=== PATIENT | male | born 1960 | race Caucasian/White ===

== ENCOUNTER 2017-04-06 19:30 | Inpatient (IN) | payer OTHER ==
[2017-04-06] MEDS ORDERED: VANCOMYCIN PHARMACY TO DOSE MISC ONE (20:21)
[2017-04-06] MEDS ORDERED: LR 1,000 ML IV SCH (20:30)
[2017-04-06] MEDS ORDERED: ONDANSETRON 4 MG/2 ML VIAL IVP PRN (20:56)
[2017-04-06] MEDS ORDERED: ONDANSETRON DISINTEGRATING 4 MG TAB PO PRN (20:56)
[2017-04-06] MEDS ORDERED: ACETAMINOPHEN 325 MG TAB PO PRN (20:56)
[2017-04-06] MEDS ORDERED: HYDROmorphONE/DILAUDID 1 MG/ML SYR IVP PRN (20:56)
[2017-04-06] MEDS ORDERED: HYDROmorphONE/DILAUDID 2 MG TAB PO PRN (20:56)
[2017-04-06] MEDS ORDERED: IBUPROFEN 200 MG TAB PO PRN (20:56)
[2017-04-06] MEDS ORDERED: MAGNESIUM HYDROXIDE 30 ML UDCUP PO PRN (20:59)
[2017-04-06] MEDS ORDERED: BISACODYL 10 MG SUPP PR PRN (20:59)
[2017-04-06] MEDS ORDERED: POLYETHYLENE GLYCOL 3350 17 GM PKT PO PRN (20:59)
[2017-04-06] MEDS ORDERED: LACTULOSE 20 GM/30 ML UDCUP PO PRN (20:59)
--- NOTE | 2017-04-06 21:03 | PDGENHP ---
History and Physical - Chief Complaint Acute elbow pain - History of Present Illness primary care provider: Dr. Cloud primary ID: Dr. Cristhian Bermudez HPI: 56-year-old male presenting with acute pain located in his right elbow with onset of symptoms 1.5 days ago and duration persistent worsening thereafter. He reports that the pain is exacerbated by extending and flexing his right upper extremity and is associated with paresthesias along the affected dorsal surface. The pain was somewhat alleviated by to Advil on the morning of presentation. He does note that approximately 10 days ago his right shoulder was somewhat painful with exertion at a softball game and he has also been experiencing some increased sinus congestion as well as experiencing some chills last night. He has otherwise been taking all of his home medications. Last bowel movement was the morning of presentation. was completely unable to utilize his right upper extremity and buccal his seatbelt, leading him to [facility]. The patient was seen by Dr. Hill and the decision was made for washout for possible septic joint. The patient reports that prior to his onset of symptoms, his right elbow had otherwise been functioning well and he has not had any recent abrasions to the area. History Information - Allergies/Home Medication List Allergies/Adverse Reactions: ciprofloxacin [From Cipro] Allergy (Verified 09/13/15 08:17) ciprofloxacin HCl [From Cipro] Allergy (Verified 09/13/15 08:17) Home Medications: Ascorbic Acid [Vitamin C 500 mg (*)] 500 mg PO DAILY 10/13/15 [Last Taken ] Magnesium Oxide [Magnesium Oxide 400 mg (*)] 400 mg PO DAILY@199910/13/15 [ Last Taken 02/18/16 20:00] Cholecalciferol (Vitamin D3) [Vitamin D3] 5,000 unit PO DAILY 02/19/16 [Last Taken 02/18/16] I have personally reviewed and updated: family history, medical history, social history, surgical history - Past Medical History atrial fibrillation ( Paroxysmal on Xarelto), diabetes type 2, hypertension Additional medical history: erectile dysfunction. Hypothyroidism. Glaucoma. MRSA osteomyelitis. 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 Review of Systems ROS: 10pt was reviewed & negative except for what was stated in HPI & below Constitutional: Reports: chills Muscolosketal: Reports: joint pain ( riht elbow) Physical Exam Temp Pulse Resp BP Pulse Ox 37.0 C 72 14 143/84 H 92 04/06/17 20:22 04/06/17 20:22 04/06/17 20:22 04/06/17 20:22 04/06/17 20:22 Constitutional: no apparent distress, appears nourished, not in pain Eyes: PERRL, anicteric sclera, EOMI Ears, Nose, Mouth, Throat: moist mucous membranes, hearing normal, ears appear normal, no oral mucosal ulcers, other ( no sinus tenderness) Cardiovascular: regular rate and rhythym, no murmur, rub, or gallop, No edema Respiratory: no respiratory distress, no rales or rhonchi, clear to auscultation Gastrointestinal: normoactive bowel sounds, soft, non-tender abdomen, no palpable masses Skin: other ( elbows immediately wrapped, there is not any streaking erythema creeping out from the edges) Musculoskeletal: other ( pain with extension and flexion of right elbow, full range of motion right wrist without pain, full range of motion in the right shoulder without any pain, tenderness to palpation over the right olecranon bursa) Neurologic: AAOx3, sensation intact bilaterally, No weakness ( motor strength 5/ 5 bilateral hands) Psychiatric: interacting appropriately, not anxious, not encephalopathic, thought process linear Assessment & Plan Assessment: 56-year-old male presenting with acute suspected septic arthritis Plan: 1. Suspected septic arthritis. Acute, new problem this provider, further workup indicated. Unclear precipitant, affected area has been worsening over the past 36 hours, and the patient has been evaluated at the [facility]. - bailey risk patient given his previous MRSA - discussed with Cassidy Fletcher, orthopedics, she and Dr. Hill noted crystals on aspirate but gram-stain is pending, so plan is to monitor Cx/gram-stain, treat possible gout w/ colchicine and NSAIDs, and possible surgical wash-out tomorrow if situation requires - get blood cultures, CBC preoperatively - get wound cultures perioperatively - RCRI score of 0, conferring 0.5% perioperative cardiovascular morbidity and mortality rate, recommend proceeding given patient's low cardiovascular risk for low risk surgery - would recommend indwelling washout drain if Orthopedics agrees, given the patient's bleed risk - then administer IV vancomycin, continue Q 12 (will hold tonight, to get cx data from wash-out, if appropriate) - get Infectious Disease consultation - anticipate narrowing antibiotic coverage and making decisions regarding duration of therapy based on culture data 2. Paroxysmal atrial fibrillation. Patient is taking his diltiazem today, monitor rate on telemetry to ensure no rapid ventricular response - last dosage of Xarelto was 24 hours ago and we will hold this evening's dose 3. Diabetes mellitus type 2. Continue home medications 4. Left BKA. Reviewed outside records including [facility] by Dr. Dasha Sweet from 04/16/2016, reporting patient's previous osteomyelitis in the left foot, status post surgical removal, healing well. Diet. Diabetic, NPO in a.m. Prophylaxis. SCDs Code. Full Disposition. Anticipated discharge uncertain this time, anticipated length stay is greater than 48 hours warranting inpatient admission stay for suspected septic arthritis, ruling out gout, requiring Infectious Disease consultation and possible orthopedic surgical washout.
[2017-04-06 21:08] LABS: % IMMATURE GRANULYOCYTES 0.5 % (0.0-1.1); ABSOLUTE IMMATURE GRANULOCYTES 0.06 10^3/uL (0.00-0.10); ADD DIFF? NO; ADD MORPH? NO; ADD SCAN? NO; ATYPICAL LYMPHOCYTE FLAG 10 (0-99); FRAGMENT RBC FLAG 0 (0-99); HEMATOCRIT 42.2 % (40.0-51.0); HEMOGLOBIN 14.3 g/dL (13.7-17.5); LEFT SHIFT FLG 0 (0-99); LIPEMIA HEMOLYSIS FLAG 90 (0-99); MEAN CELL HEMOGLOBIN CONCENTR. 33.9 g/dL (32.4-36.7); MEAN CELL VOLUME 85.6 fL (81.5-99.8); MEAN PLATELET VOLUME 10.9 fL (8.7-11.7); PLATELET CLUMPS FLAG 0 (0-99); PLATELET COUNT 267 10^3/uL (150-400); RED BLOOD CELL COUNT 4.93 10^6/uL (4.40-6.38); RED CELL DISTRIBUTION WIDTH 13.1 % (11.5-15.2)
[2017-04-06] MEDS ORDERED: IBUPROFEN 800 MG TAB PO PRN (21:17)
[2017-04-06 21:21] LABS: APTT 36.3 SEC (23.0-38.0); INR 1.47 (0.83-1.16); PROTIME(PATIENT) 17.8 SEC (12.0-15.0)
[2017-04-06 21:26] LABS: ALANINE AMINOTRANSFERASE 34 IU/L (21-72); ALBUMIN 4.1 g/dL (3.5-5.0); ALKALINE PHOSPHATASE 77 IU/L (38-126); ANION GAP 13 mEq/L (8-16); ASPARTATE AMINOTRANSFERASE 19 IU/L (17-59); BILIRUBIN,TOTAL 0.9 mg/dL (0.1-1.4); CALCIUM 9.6 mg/dL (8.5-10.4); CARBON DIOXIDE 24 mEq/l (22-31); CHLORIDE 101 mEq/L (97-110); CREATININE 1.2 mg/dL (0.7-1.3); GLOMERULAR FILTRATION RATE > 60; GLUCOSE 111 mg/dL (70-100); POTASSIUM 4.4 mEq/L (3.5-5.2); SODIUM 138 mEq/L (134-144); TOTAL PROTEIN 7.4 g/dL (6.3-8.2)
[2017-04-06] MEDS ORDERED: LATANOPROST 0.005% 2.5 ML OPHT DROPS EACHEYE SCH (22:18)
[2017-04-06] MEDS ORDERED: INSULIN LISPRO 100 UNIT/ML SC PRN (22:18)
[2017-04-06] MEDS ORDERED: INSULIN GLARGINE 100 UNITS/ML SYRINGE SC SCH (22:18)
[2017-04-06] MEDS: KETOROLAC 15 MG/1 ML SDV IVP PRN (23:03)
[2017-04-06] MEDS: NS 1,000 ML IV SCH (23:04)
[2017-04-06] MEDS: SENNOSIDES/DOCUSATE SODIUM TAB PO SCH (23:05)
[2017-04-06] MEDS: COLCHICINE 0.6 MG CAP/TAB PO SCH (23:05)
[2017-04-07 05:05] LABS: % IMMATURE GRANULYOCYTES 0.5 % (0.0-1.1); ABSOLUTE IMMATURE GRANULOCYTES 0.06 10^3/uL (0.00-0.10); ADD DIFF? NO; ADD MORPH? NO; ADD SCAN? NO; ATYPICAL LYMPHOCYTE FLAG 0 (0-99); FRAGMENT RBC FLAG 0 (0-99); HEMATOCRIT 39.1 % (40.0-51.0); HEMOGLOBIN 12.9 g/dL (13.7-17.5); LEFT SHIFT FLG 0 (0-99); LIPEMIA HEMOLYSIS FLAG 80 (0-99); MEAN CELL HEMOGLOBIN 28.5 pg (27.9-34.1); MEAN CELL VOLUME 86.5 fL (81.5-99.8); MEAN PLATELET VOLUME 11.5 fL (8.7-11.7); PLATELET CLUMPS FLAG 10 (0-99); PLATELET COUNT 242 10^3/uL (150-400); RED BLOOD CELL COUNT 4.52 10^6/uL (4.40-6.38); RED CELL DISTRIBUTION WIDTH 13.1 % (11.5-15.2)
[2017-04-07 05:21] LABS: ANION GAP 12 mEq/L (8-16); CALCIUM 8.7 mg/dL (8.5-10.4); CARBON DIOXIDE 21 mEq/l (22-31); CHLORIDE 104 mEq/L (97-110); CREATININE 1.2 mg/dL (0.7-1.3); GLOMERULAR FILTRATION RATE > 60; GLUCOSE 261 mg/dL (70-100); MAGNESIUM 1.7 mg/dL (1.6-2.3); POTASSIUM 4.3 mEq/L (3.5-5.2); SODIUM 137 mEq/L (134-144); URIC ACID 8.5 mg/dL (3.5-8.5)
[2017-04-07] MEDS: NS 1,000 ML IV SCH (06:31)
[2017-04-07] MEDS: KETOROLAC 15 MG/1 ML SDV IVP PRN ×2 (07:28→13:56)
[2017-04-07] MEDS: SENNOSIDES/DOCUSATE SODIUM TAB PO SCH (07:29)
[2017-04-07] MEDS: COLCHICINE 0.6 MG CAP/TAB PO SCH (07:29)
[2017-04-07] MEDS ORDERED: DILTIAZEM CD 120 MG CAP PO SCH (09:00)
[2017-04-07] MEDS ORDERED: CHOLECALCIFEROL VIT D3 2,000 UNITS TAB/CAP PO SCH (09:00)
[2017-04-07] MEDS ORDERED: FLUTICASONE NASAL 120 SPRAYS/16 GM MDI EACHNARE SCH (09:00)
--- NOTE | 2017-04-07 09:51 | SOAPPROG ---
SOAP Progress Note Assessment/Plan: Assessment: Elbow arthropathy likely secondary to gout. Plan: Check uric acid No arthrotomy, I and D. Continue colchicine and discharge for follow up to primary care. 04/07/17 09:49 Subjective: Slightly better after 2 doses of colchicine Objective: Vital Signs Temp Pulse Resp BP Pulse Ox 36.8 C 65 16 139/76 H 96 04/07/17 07:25 04/07/17 07:29 04/07/17 07:25 04/07/17 07:29 04/07/17 07:25 Laboratory Results 04/07/17 04:22 04/07/17 04:22 04/06/17 04/07/17 04/08/17 05:59 05:59 05:59 Intake Total 1300 Output Total 300 Balance 1000 PT 17.8 SEC (12.0-15.0) H 04/06/17 20:56 INR 1.47 (0.83-1.16) H 04/06/17 20:56 Swelling mildly better Still warm elbow. ICD10 Worksheet Patient Problems: Problems Problem Status Onset Diabetes type 2, uncontrolled Acute MRSA (methicillin resistant Staphylococcus aureus) Acute 02/19/16 Osteomyelitis of toe of left foot Acute
[2017-04-07 11:41] VITALS: BP 126/66; PULSE 63; RESP 18; TEMP 98.1; O2SAT 95
--- NOTE | 2017-04-07 11:42 | HOSPPROG ---
Hospitalist Progress Note Assessment/Plan: patient is a 56-year-old male who presented with pain in his right elbow area. It is exacerbated by extending and flexing his elbow. He took Advil with some relief. I reviewed his care with Dr. Hill. He believes this is a gout flare with elevated uric acid levels he has recommended colchicine and then daily allopurinol. *elbow arthropathy most likely r/t gout no I & D needed per orthor on colchicine will need kidney function monitored closely hx of MRSA infection to his leg spoke with Dr Sorto with ID and she will or one of her colleagues f/u with wound and blood cx *Leukocytosis f/u with PCP *PAF Diltiazem + Xarelto *DM2 *Left BKA *Plan: dc home with close f/u with his PCP, ID, and Dr Hill Subjective: Jerrell said his elbow is feeling much better today. Objective: Vital Signs Temp Pulse Resp BP Pulse Ox 36.7 C 63 18 126/66 H 95 04/07/17 11:40 04/07/17 11:40 04/07/17 11:40 04/07/17 11:40 04/07/17 11:40 Laboratory Results 04/07/17 04:22 04/07/17 04:22 04/06/17 04/07/17 04/08/17 05:59 05:59 05:59 Intake Total 1300 Output Total 300 Balance 1000 PT 17.8 SEC (12.0-15.0) H 04/06/17 20:56 INR 1.47 (0.83-1.16) H 04/06/17 20:56 - Physical Exam Constitutional: no apparent distress, appears nourished, not in pain Eyes: PERRL Ears, Nose, Mouth, Throat: hearing normal Skin: warm, normal color Musculoskeletal: other (right elbow in maryanne wrap, less tender, able to bend and extend) Neurologic: AAOx3 Psychiatric: interacting appropriately, not anxious ICD10 Worksheet Patient Problems: Problems Problem Status Onset Diabetes type 2, uncontrolled Acute MRSA (methicillin resistant Staphylococcus aureus) Acute 02/19/16 Osteomyelitis of toe of left foot Acute
--- NOTE | 2017-04-07 12:42 | GDS ---
[f rep st] DISCHARGE SUMMARY DISCHARGE DIAGNOSES: 1. Elbow arthropathy. 2. Leukocytosis. 3. Paroxysmal atrial fibrillation. 4. Diabetes type 2. 5. Left below-knee amputation. CONSULTATIONS: Dr. Van Hill. HISTORY: Briefly, Mr. Hughes is a 56-year-old male, who presented to the emergency room with pain in his right elbow area. He could not extend and flex his elbow. He took Advil with some relief, but it continued. He was seen this morning by Dr. Hill, who believes that this is most likely a gout flare with elevated uric acid. He has recommended colchicine for a few days. He aspirated the elbow. The patient will get further followup with the Infectious Disease team and his PCP. HOSPITAL COURSE: 1. Elbow arthropathy. This is most likely related to gout. No incision and drainage was needed, per Orthopedics. Because he has a history of methicillin- resistant Staphylococcus aureus infection in his leg, I have asked Infectious Disease to please follow up with the aspirate from the elbow and also with blood cultures. He has gotten good relief with Colchicine. He will be on this for two more days. Then on Allopurinol. 2. Leukocytosis. Will get repeat labs on Sunday. 3. Paroxysmal atrial fibrillation. Stable. 4. Diabetes type 2. Glucoses are elevated this afternoon. 5. Left below-knee amputation. This occurred in the setting secondary to methicillin-resistant Staphylococcus aureus infection. CONDITION AT DISCHARGE: Stable. Blood pressure is 126/66, respiratory rate is 18, pulse is 63, temperature 36.7 Celsius, O2 saturation on room air 95%. MEDICATIONS AT DISCHARGE: Please see the EMR. New medication includes colchicine for 2-1/2 more days and then allopurinol. DISCHARGE INSTRUCTIONS: 1. To get labs checked early next week. 2. Further follow up with his primary care provider. 3. Further follow up with the Infectious Disease team. /[id number]/MODL MTDD
[2017-04-07] MEDS ORDERED: RIVAROXABAN 20 MG TAB PO SCH (18:00)
[2017-04-07] MEDS ORDERED: THYROID 60 MG TAB PO SCH (21:00)
== END 2017-04-07 14:11 | disposition home or self-care (01) | DRG 554 ==
LOC: F3N 20:10 → OBSVTOIN 20:56
PROVIDERS: ADMIT Internal Medicine; ATTEND Internal Medicine
DX: M10.021 Idiopathic gout, right elbow (principal); I48.0 Paroxysmal atrial fibrillation; E11.9 Type 2 diabetes mellitus without complications; E03.9 Hypothyroidism, unspecified; Z89.512 Acquired absence of left leg below knee; Z86.14 Personal history of Methicillin resistant Staphylococcus aureus infection
CPT/HCPCS: J1815; J1885

== ENCOUNTER 2017-09-26 10:17 | Inpatient (IN) | payer OTHER ==
[2017-09-26] MEDS ORDERED: ACETAMINOPHEN 325 MG TAB PO PRN (15:16)
[2017-09-26] MEDS ORDERED: ONDANSETRON 4 MG/2 ML VIAL IVP PRN (15:16)
[2017-09-26] MEDS ORDERED: ONDANSETRON DISINTEGRATING 4 MG TAB PO PRN (15:16)
[2017-09-26] MEDS ORDERED: D50W 25 GM/50 ML SYR IVP PRN (15:19)
--- NOTE | 2017-09-26 15:25 | PDGENHP ---
History and Physical - Chief Complaint right fifth toe infection - History of Present Illness 57 yo male with hx of Afib, DM, PVD, s/p Left BKA, chronic right foot wound p/w right fifth toe infection. He was seen at wound clinic a few days ago and Bactrim was started. He had progression of his infection despite antibiotics and there was concern for 4th toe involement. Therefore a decision for direct admission was made. Dr. Anton has asked us to admit as the patient has significant chronic medical problems. He has a hx of pAfib, but typically is not in afib. He is on Xarelto for Afib. He has a hx of IDDM and is on several agents He has been afebrile. No CP or SOB. He feels overall well. No palpitations. He does have right lower extremity edema which is mild and chronic. He denies use of diuretics. He denies generalized weakness. He has some bruising on his right lower extremity which he reports is due to Softballs hitting him while playing catch with his 11 year old. - Past Medical History atrial fibrillation ( Paroxysmal on Xarelto), diabetes type 2, hypertension Additional medical history: erectile dysfunction. Hypothyroidism. Glaucoma. MRSA osteomyelitis. 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 History Information - Allergies/Home Medication List Allergies/Adverse Reactions: ciprofloxacin [From Cipro] Allergy (Verified 09/13/15 08:17) ciprofloxacin HCl [From Cipro] Allergy (Verified 09/13/15 08:17) Home Medications: Cholecalciferol (Vitamin D3) [Vitamin D3] 5,000 unit PO DAILY 02/19/16 [Last Taken 04/06/17] Insulin Detemir [Levemir] 20 unit SQ HS 04/06/17 [Last Taken 04/05/17] Insulin Lispro [humALOG LISPRO 100 units/ml (*)] 14 unit SC TIDMEAL PRN [Last Taken 04/06/17] Thyroid,Pork [ARMOUR THYROID] 15 mg PO HS 04/06/17 [Last Taken 04/05/17] Anastrozole [Arimidex 1 mg (*)] 1 mg PO Q7D 09/26/17 [Last Taken Unknown] Insulin Detemir [Levemir] 40 unit SQ DAILY 09/26/17 [Last Taken Unknown] Insulin Glargine/Lixisenatide [Soliqua 100 Unit-33 Mcg/ml Pen] 3 ml SQ 09/26/17 [Last Taken Unknown] Insulin Lispro [Humalog] 20 unit SQ TID 09/26/17 [Last Taken Unknown] celeCOXIB [Celebrex (*)] 200 mg PO BID 09/26/17 [Last Taken Unknown] I have personally reviewed and updated: medical history, social history - Past Medical History atrial fibrillation ( Paroxysmal on Xarelto), diabetes type 2, hypertension Additional medical history: erectile dysfunction. Hypothyroidism. Glaucoma. MRSA osteomyelitis. Clubfoot - Surgical History Additional surgical history: October 2014 5th metatarsal left foot amputation - Family History Additional family history: father with diabetes and coronary artery disease in his 70s, mother with COPD in her 70s - Social History Smoking Status: Never smoked Additional social history: normally independent in his ADLs, he is an avid softball enthusiast Review of Systems Review of Systems: ROS: 10pt was reviewed & negative except for what was stated in HPI & below Physical Exam Physical Exam: Temp Pulse Resp BP Pulse Ox 36.9 C 77 16 123/74 H 90 L 09/26/17 15:01 09/26/17 15:01 09/26/17 15:01 09/26/17 15:01 09/26/17 15:01 Constitutional: no apparent distress Eyes: PERRL Ears, Nose, Mouth, Throat: moist mucous membranes, hearing normal Cardiovascular: regular rate and rhythym, edema (trace R LE) Respiratory: no respiratory distress Gastrointestinal: normoactive bowel sounds Genitourinary: no bladder fullness Skin: warm Musculoskeletal: full muscle strength, other (chronic Left BKA) Neurologic: AAOx3 Psychiatric: interacting appropriately, not anxious, not encephalopathic Lymph, Heme, Immunologic: No petechiae Assessment & Plan Assessment: #Right foot 4th and 5th toe infection with hx of MRSA OM -will start Vancomycin pending labs which have been ordered -CTA with runoff pending labs #pAfib: cont home meds #Chronic AC: hold AC #DMII -appropriate home meds -ISS -check A1c #HTN: home meds #PVD Plan: per above check labs now check EKG telemetry surgical mgmt per Surgery Start Vancomycin per above pending labs Full code
[2017-09-26 16:24] LABS: PLATELET COUNT 318 10^3/uL (150-400)
[2017-09-26] MEDS ORDERED: INSULIN LISPRO 100 UNIT/ML SC PRN (16:34)
--- NOTE | 2017-09-26 16:54 | CPEKG ---
Heart Rate: 74 RR Interval: 811 P-R Interval: 180 QRSD Interval: 82 QT Interval: 372 QTC Interval: 413 P [place]: -10 QRS [place]: 77 T Wave [place]: 42 EKG Severity - NORMAL ECG - EKG Impression: SINUS RHYTHM EKG Impression: COMPARED WITH 03/07/2016, SINUS RHYTHM NOW PRESENT. Electronically Signed By: Bonnie Salcido 27-Sep-2017 13:39:33
[2017-09-26 17:05] LABS: INR 1.6 (0.83-1.16); PROTIME(PATIENT) 19.2 SEC (12.0-15.0)
[2017-09-26] MEDS ORDERED: NS 1,000 ML IV SCH (17:30)
[2017-09-26] MEDS: VANCOMYCIN HCL/NORMAL SALINE 250 ML IV SCH (18:00)
[2017-09-26] MEDS: INSULIN LISPRO 100 UNIT/ML SC SCH (18:03)
--- NOTE | 2017-09-26 19:00 | SOAPPROG ---
SOAP Progress Note Assessment/Plan: Assessment: 57-YEAR-OLD DIABETIC WITH NEUROPATHY AND 5TH TOE INFECTION AND POSSIBLE 4TH TOE INFECTION CT OF HIS EXTREMITIES PENDING. HE ALSO HAS A PROBABLE HEMATOMA IN HIS MID MAR[place] WHICH MAY ALSO BE INFECTED PRESENTLY AFEBRILE Plan: WILL LIKELY NEED RIGHT 4TH AND 5TH TOE RAY AMPUTATIONS AND POSSIBLE DRAINAGE OF HIS PRETIBIAL HEMATOMA IF INFECTED 09/26/17 18:59 Objective: Vital Signs Temp Pulse Resp BP Pulse Ox 36.9 C 77 16 123/74 H 90 L 09/26/17 15:01 09/26/17 15:01 09/26/17 15:01 09/26/17 15:01 09/26/17 15:01 Laboratory Results 09/26/17 16:15 09/26/17 16:15 09/25/17 09/26/17 09/27/17 05:59 05:59 05:59 Intake Total 250 Output Total 250 Balance 0 PT 19.2 SEC (12.0-15.0) H 09/26/17 16:15 INR 1.60 (0.83-1.16) H 09/26/17 16:15 ICD10 Worksheet Patient Problems: Problems Problem Status Onset Diabetes type 2, uncontrolled Acute MRSA (methicillin resistant Staphylococcus aureus) Acute 02/19/16 Osteomyelitis of toe of left foot Acute
[2017-09-26] MEDS: LOSARTAN POTASSIUM 25 MG TAB PO SCH (19:44)
[2017-09-26] MEDS: LATANOPROST 0.005% 2.5 ML OPHT DROPS EACHEYE SCH (19:45)
[2017-09-26] MEDS ORDERED: NON-FORMULARY NEW DRUG (Thyroid,Pork [Armour Thyroid] 15 MG) PO SCH (21:00)
[2017-09-27 04:41] LABS: PLATELET COUNT 336 10^3/uL (150-400)
[2017-09-27] MEDS: VANCOMYCIN HCL/NORMAL SALINE 250 ML IV SCH ×2 (06:47→17:09)
--- NOTE | 2017-09-27 08:47 | PDMN ---
Medical Necessity Medical necessity: M70 cellulitis- failure of outpt tx with progression of infection. in pt with hx of DM, afib, hx of MRSA, sgy consult pending
[2017-09-27] MEDS ORDERED: Herbals/Supplements -Info Only PO SCH (09:00)
[2017-09-27] MEDS ORDERED: NON-FORMULARY NEW DRUG (Cholecalciferol (Vitamin D3) [Vitamin D3] 5,000 UNIT) PO SCH (09:00)
--- NOTE | 2017-09-27 09:11 | SOAPPROG ---
SOAP Progress Note Assessment/Plan: Assessment: 57 yo well known to me. Have been following for ulcer on r 5th toe - worsening. Now 4th toe with some necrotic tissue hematoma on r anterior leg Will go to OR to amputate 4th/5th toe and met head and I&D hematoma x ray to rule out fracture and osteo will hold on MRI and CTA due to Cr of 1.4 good palpable pulses Plan: 09/27/17 09:09 Objective: Vital Signs Temp Pulse Resp BP Pulse Ox 37.0 C 64 14 140/75 H 96 09/27/17 07:09 09/27/17 07:09 09/27/17 07:09 09/27/17 07:09 09/27/17 07:09 Laboratory Results 09/27/17 03:23 09/27/17 03:23 09/26/17 09/27/17 09/28/17 05:59 05:59 05:59 Intake Total 250 Output Total 1550 Balance -1300 PT 19.2 SEC (12.0-15.0) H 09/26/17 16:15 INR 1.60 (0.83-1.16) H 09/26/17 16:15 ICD10 Worksheet Patient Problems: Problems Problem Status Onset Diabetes type 2, uncontrolled Acute MRSA (methicillin resistant Staphylococcus aureus) Acute 02/19/16 Osteomyelitis of toe of left foot Acute
--- NOTE | 2017-09-27 10:26 | ASMTCASEMG ---
Living Arrangements What is your living Answers: With Spouse arrangement? Who do you live with? Type Of Residence What kind of residence do Answers: House you live in? Discharge Plan Comments Coordination Status Comments Notes: Pt is a 57 y/o man admitted for a right fifth toe infection. PT has been ordered and awaiting recommendations. Pt will most likely d/c independent when medically stable. CM available for d/c needs. Plan: Independent Date Signed: 09/27/2017 10:26 AM Electronically Signed By:POOJA Sevilla
[2017-09-27] MEDS: DILTIAZEM CD 120 MG CAP PO SCH (10:36)
[2017-09-27] MEDS: INSULIN LISPRO 100 UNIT/ML SC SCH ×3 (11:04→18:41)
[2017-09-27] MEDS ORDERED: BUPIVACAINE 0.5% 30 ML SDV ONE (12:04)
[2017-09-27] MEDS ORDERED: LR 1,000 ML IV ONE (12:15)
[2017-09-27] MEDS ORDERED: fentaNYL 100 MCG/2 ML INJ ONE (12:26)
[2017-09-27] MEDS ORDERED: MIDAZOLAM 2 MG/2 ML VIAL ONE (12:29)
[2017-09-27] MEDS ORDERED: LIDOCAINE 2% 5 ML SDV ONE (12:43)
[2017-09-27] MEDS ORDERED: PROPOFOL 200 MG/20 ML VIAL ONE (12:50)
[2017-09-27] MEDS ORDERED: LR 500 ML IV PRN (13:13)
[2017-09-27] MEDS ORDERED: ALBUTEROL 3 ML DEYVIAL IH PRN (13:13)
[2017-09-27] MEDS ORDERED: NALOXONE HCL 0.4 MG/ML INJ IVP PRN (13:13)
[2017-09-27] MEDS ORDERED: fentaNYL 100 MCG/2 ML INJ IVP PRN (13:13)
[2017-09-27] MEDS ORDERED: ONDANSETRON 4 MG/2 ML VIAL IVP PRN (13:13)
[2017-09-27] MEDS ORDERED: DEXAMETHASONE 4 MG/ML VIAL IVP PRN (13:13)
--- NOTE | 2017-09-27 13:14 | PDANEPAE ---
ANE Past Medical History - Cardiovascular History Hx Hypertension: No Hx Arrhythmias: No Hx Chest Pain: No Hx Coronary Artery / Peripheral Vascular Disease: No Hx CHF / Valvular Disease: No Hx Palpitations: No - Pulmonary History Hx COPD: No Hx Asthma/Reactive Airway Disease: No Hx Recent Upper Respiratory Infection: No Hx Oxygen in Use at Home: No Hx Sleep Apnea: Yes Sleep Apnea Screening Result - Last Documented: Positive - Neurologic History Hx Cerebrovascular Accident: No Hx Seizures: No Hx Dementia: No Neurologic History Comment: Neuropathy all 4 extremities. - Endocrine History Hx Diabetes: Yes Endocrine History Comment: TYpppppe 2 diabetes-insulin and oral meds. - Renal History Hx Renal Disorders: Yes Renal History Comment: HX stones distant past. - Liver History Hx Hepatic Disorders: No - Neurological & Psychiatric Hx Hx Neurological and Psychiatric Disorders: No - Cancer History Hx Cancer: No - GI History Hx Gastrointestinal Disorders: No - Other Health History Other Health History: Bilateral glaucoma. Diabetic neuropathy with 2 toe amputations. - Chronic Pain History Chronic Pain: No - Surgical History Prior Surgeries: L toe amputation 2014. Arthroscope repair both ankles 2001. ANE Review of Systems Review of Systems: ANE Patient History - Allergies Allergies/Adverse Reactions: ciprofloxacin [From Cipro] Allergy (Verified 09/13/15 08:17) ciprofloxacin HCl [From Cipro] Allergy (Verified 09/13/15 08:17) - Home Medications Home Medications: Cholecalciferol (Vitamin D3) [Vitamin D3] 5,000 unit PO DAILY 02/19/16 [Last Taken 09/25/17] Insulin Lispro [humALOG LISPRO 100 units/ml (*)] 14 unit SC TIDMEAL PRN [Last Taken 09/25/17 21:00] Thyroid,Pork [ARMOUR THYROID] 15 mg PO HS 04/06/17 [Last Taken 09/25/17] Anastrozole [Arimidex 1 mg (*)] 1 mg PO BOOKER 09/26/17 [Last Taken 09/23/17] Ferrous Sulfate [Ferrous Sulf 325 MG (*)] 325 mg PO DAILY 09/26/17 [Last Taken 09/21/17] Herbals/Supplements -Info Only 1 ea PO DAILY 09/26/17 [Last Taken 3 Days Ago ~] Losartan Potassium [Cozaar 25 mg (*)] 25 mg PO HS 09/26/17 [Last Taken 09/25/17] - NPO status NPO Since - Liquids (Date): 09/27/17 NPO Since - Liquids (Time): 00:00 NPO Since - Solids (Date): 09/27/17 NPO Since - Solids (Time): 00:00 - Smoking Hx Smoking Status: Never smoked - Family Anes Hx Family Hx Anesthesia Complications: none ANE Labs/Vital Signs - Labs Result Diagrams: 09/27/17 03:23 09/27/17 03:23 - Vital Signs Blood Pressure: 140/75 Heart Rate: 64 Respiratory Rate: 14 O2 Sat (%): 96 Height: 162.56 cm Weight: 98.6 kg ANE Physical Exam - Airway Neck exam: FROM, increased neck circumference, short neck Mallampati Score: Class 2 Mouth exam: normal dental/mouth exam - Pulmonary Pulmonary: no respiratory distress, no rales or rhonchi, reduced air movement - Cardiovascular Cardiovascular: regular rate and rhythym, no murmur, rub, or gallop - ASA Status ASA Status: IV ANE Anesthesia Plan Anesthesia Plan: MAC (modified ankle block as primary anesthesia)
--- NOTE | 2017-09-27 13:36 | POSTOPPROG ---
Post Op Note Date of Operation: 09/27/17 Surgeon: Dasha Sweet Anesthesiologist: fermin Anesthesia: IV Sedation Pre-op Diagnosis: infected toes and hematoma Post-op Diagnosis: same Indication: 57 yo dm worsening infection r 4th 5th toe and hematoma on leg Procedure: excisional debride leg 5x2.5x1 and amputate 4th 5th toe and met head Findings: large hematoma Inf/Abcess present in the surg proc area at time of surgery?: Yes Depth: Deep Incisional (Fascial) EBL: Minimal Specimen(s): micro and path
--- NOTE | 2017-09-27 13:48 | POSTANESTH ---
Post Anesthetic Evaluation Cardiovascular Status: Normal, Stable Respiratory Status: Normal, Stable Level of Consciousness/Mental Status: Can Participate in Eval Pain Control: Adequate, Prn Tx Ordered Nausea/Vomiting Control: Adequate, Prn Tx Ordered Complications Possibly Related to Anesthesia: None Noted
[2017-09-27] MEDS ORDERED: D50W 25 GM/50 ML SYR IVP PRN (15:48)
--- NOTE | 2017-09-27 15:54 | HOSPPROG ---
Hospitalist Progress Note Assessment/Plan: Assessment: #Right foot 4th and 5th toe infection with hx of MRSA OM status post 4th and 5th digit amputation done 09/27/[address] Sweet -continue Vancomycin #pAfib: cont home meds -resume Xarelto once okay with surgery #Chronic AC: hold AC #DMII (uncontrolled) -start glargine 20 U daily and continue correctional insulin as needed per protocol #HTN: home meds #PVD Full code Subjective: Pain control. Denies any fevers or chills. Patient seen prior to going to the operating room Objective: Vital Signs Temp Pulse Resp BP Pulse Ox 36.4 C 52 L 12 101/62 95 09/27/17 14:50 09/27/17 14:50 09/27/17 14:50 09/27/17 14:50 09/27/17 14:50 Laboratory Results 09/27/17 03:23 09/27/17 03:23 09/26/17 09/27/17 09/28/17 05:59 05:59 05:59 Intake Total 250 300 Output Total 1550 11 Balance -1300 289 PT 19.2 SEC (12.0-15.0) H 09/26/17 16:15 INR 1.60 (0.83-1.16) H 09/26/17 16:15 - Physical Exam Constitutional: no apparent distress, appears nourished, not in pain Cardiovascular: regular rate and rhythym, no murmur, rub, or gallop Respiratory: no respiratory distress, no rales or rhonchi, clear to auscultation Gastrointestinal: normoactive bowel sounds, soft, non-tender abdomen, no palpable masses ICD10 Worksheet Patient Problems: Problems Problem Status Onset Osteomyelitis of toe of left foot Acute Diabetes type 2, uncontrolled Acute MRSA (methicillin resistant Staphylococcus aureus) Acute 02/19/16
[2017-09-27] MEDS: THYROID 60 MG TAB PO SCH (17:09)
[2017-09-27] MEDS: FERROUS SULFATE 325 MG TAB PO SCH (17:10)
[2017-09-27] MEDS: CHOLECALCIFEROL VIT D3 1,000 UNITS TAB PO SCH (17:10)
[2017-09-27] MEDS ORDERED: INSULIN GLARGINE 100 UNITS/ML UNIT SC SCH (21:00)
[2017-09-27] MEDS: LOSARTAN POTASSIUM 25 MG TAB PO SCH (21:02)
[2017-09-27] MEDS: LATANOPROST 0.005% 2.5 ML OPHT DROPS EACHEYE SCH (21:05)
[2017-09-28] MEDS: DILTIAZEM CD 120 MG CAP PO SCH (08:48)
[2017-09-28] MEDS: VANCOMYCIN HCL/NORMAL SALINE 250 ML IV SCH ×2 (08:48→17:57)
[2017-09-28] MEDS: CHOLECALCIFEROL VIT D3 1,000 UNITS TAB PO SCH (08:49)
[2017-09-28] MEDS: FERROUS SULFATE 325 MG TAB PO SCH (08:49)
[2017-09-28] MEDS: INSULIN LISPRO 100 UNIT/ML SC SCH ×3 (08:58→17:56)
[2017-09-28] MEDS: THYROID 60 MG TAB PO SCH (10:20)
[2017-09-28] MEDS ORDERED: ALTEPLASE 2 MG VIAL IVP PRN (11:40)
--- NOTE | 2017-09-28 11:40 | PCMIDPN ---
Assessment/Plan: # OM/gangrene 4th, 5th toe s/p amputation 4th 5th toe and met head and excisional debridement leg 5x2.5x1 for hematoma. Surgical dressings in place today and not removed at time of my exam. --plan DC IV vancomycin for empiric therapy of MRSA, plan initial 2 week course until pathology back. --add on CRP --place PICC line --trough drawn 2 hours late = 10, except accumulation, no dose change today. Recheck Sunday. Recheck vancomycin T before complete interagency but follow up appointment set today --dressing change is Sunday # Past h/o rapidly progressive infections mediated by MRSA leading to L BKA meds vancomycin 1gm IV q12 #2 micro toe tissue : gram stain negative Subjective: 57 yo male with DM and h/o MRSA bacteremia due to L osteomyelitis of foot for which patient underwent left-sided BKA back in 2015. 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 Patient was in his usual state of health until last week when he developed injury right 5th toe and right anterior bean. Ulceration on right 5th toe was progressive and plain film showed subtle distal erosion of the 5th toe. Subsequently patient underwent amputation of the 4th and 5th toe along with metatarsal head on the right 09/27/2017. Id is asked to comment on antibiotic therapy while await pathology. Surgical team reports resection back to healthy- appearing bone. Objective: Vital Signs Temp Pulse Resp BP Pulse Ox 37.0 C 71 18 145/81 H 90 L 09/28/17 08:00 09/28/17 08:00 09/28/17 08:00 09/28/17 08:00 09/28/17 08:10 Microbiology 09/27/17 13:06 Gram Stain - Final Toe - Tissue Laboratory Results 09/27/17 03:23 09/27/17 03:23 09/27/17 09/28/17 09/29/17 05:59 05:59 05:59 Intake Total 250 2200 Output Total 1550 1761 800 Balance -1300 439 -800 - Physical Exam General Appearance: alert, no apparent distress EENT: normal ENT inspection, No thrush Respiratory: lungs clear, No accessory muscle use Neck: supple Cardiac/Chest: regular rate, rhythm Extremities: pedal edema (Right foot), other (Dressing in place from surgery right lateral foot and wound VAC in place anterior bean) Abdomen: non-tender, soft Male Genitalia: No judd Skin: No rash Neuro/Psych: alert, normal mood/affect, oriented x 3 - Time Spent With Patient Time Spent with Patient: greater than 35 minutes (Plan of care discussed with patient and his at bedside) Time Spent with Patient: Greater than 35 minutes spent on this patients care, greater than 50% of time spent counseling, educating, and coordinating care regarding the above mentioned plan. ICD10 Worksheet Patient Problems: Problems Problem Status Onset Diabetes type 2, uncontrolled Acute MRSA (methicillin resistant Staphylococcus aureus) Acute 02/19/16 Osteomyelitis of toe of left foot Acute
--- NOTE | 2017-09-28 14:43 | SOAPPROG ---
SOAP Progress Note Assessment/Plan: Assessment/Plan: POD 1: 57 yo male s/p amputation of right 4th and 5th toe including metatarsal head and incisional debridement of hematoma on right anterior lower leg Consulted ID for abx treatment, bone biopsy results pending Consulted Shaka from [facility] for a shoe/boot, he will see the patient Wound vac - change on Sunday, pre-auth home vac, possible transition to snap vac in a couple of weeks Foot x ray - showed possible osteomyelitis of the 5th, 1st, and 2nd toes, no clinical symptoms. Mild lucency, continue to monitor for now. Will hold on MRI and CTA due to Cr of 1.4 Xarelto - ok to restart this evening Leukocytosis trending down, afebrile OK to shower with R LE covered S: The patient reports feeling fatigued and sore, especially on his anterior leg where the wound vac is. He denies fever, chills, n/v. He is having flatus and BM. He was taken off nasal cannula today and is doing well. He has full ROM in his right knee and is able to ambulate with his cam boot on and his walker. He mentions the cam boot is painful on his anterior leg where the wound vac is. O: General: The patient is laying in bed watching TV. He is pleasant and in no acute distress. Right LE: Wound vac is in place, very little serosanguineous fluid present in the cartridge. Some mild erythema around the wound. Bandage is intact over the right amputation sites and does not need to be changed until Sunday. What is visible is non-erythematous with no signs of infection. Right foot is moderately swollen. Pulses palpable. 09/28/17 15:30 09/29/17 09:50 Objective: Vital Signs Temp Pulse Resp BP Pulse Ox 37.1 C 73 15 144/61 H 90 L 09/28/17 11:54 09/28/17 11:54 09/28/17 11:54 09/28/17 11:54 09/28/17 11:54 Microbiology 09/27/17 13:06 Gram Stain - Final Toe - Tissue Laboratory Results 09/27/17 03:23 09/27/17 03:23 09/27/17 09/28/17 09/29/17 05:59 05:59 05:59 Intake Total 250 2200 Output Total 1550 1761 800 Balance -1300 439 -800 PT 19.2 SEC (12.0-15.0) H 09/26/17 16:15 INR 1.60 (0.83-1.16) H 09/26/17 16:15 ICD10 Worksheet Patient Problems: Problems Problem Status Onset Diabetes type 2, uncontrolled Acute MRSA (methicillin resistant Staphylococcus aureus) Acute 02/19/16 Osteomyelitis of toe of left foot Acute
--- NOTE | 2017-09-28 15:37 | HOSPPROG ---
Hospitalist Progress Note Assessment/Plan: Assessment: #Right foot 4th and 5th toe infection with hx of MRSA OM status post 4th and 5th digit amputation done 09/27/[address] Sweet -continue Vancomycin for now -ID consult ordered #pAfib: cont home meds -resume Xarelto #DMII (uncontrolled) -increase glargine to 30 U daily and continue correctional insulin as needed per protocol #HTN: home meds #PVD Full code dispo dc home with antibiotics and wound vac once arrangements are in place Subjective: pain controlled. no fever or chills. tolerating diet Objective: Vital Signs Temp Pulse Resp BP Pulse Ox 37.1 C 73 15 144/61 H 90 L 09/28/17 11:54 09/28/17 11:54 09/28/17 11:54 09/28/17 11:54 09/28/17 11:54 Microbiology 09/27/17 13:06 Gram Stain - Final Toe - Tissue Laboratory Results 09/27/17 03:23 09/27/17 03:23 09/27/17 09/28/17 09/29/17 05:59 05:59 05:59 Intake Total 250 2200 Output Total 1550 1761 1400 Balance -1300 439 -1400 PT 19.2 SEC (12.0-15.0) H 09/26/17 16:15 INR 1.60 (0.83-1.16) H 09/26/17 16:15 - Physical Exam Constitutional: no apparent distress, appears nourished, not in pain Ears, Nose, Mouth, Throat: moist mucous membranes, hearing normal, ears appear normal, no oral mucosal ulcers Cardiovascular: regular rate and rhythym, no murmur, rub, or gallop Respiratory: no respiratory distress, no rales or rhonchi, clear to auscultation Gastrointestinal: normoactive bowel sounds, soft, non-tender abdomen, no palpable masses ICD10 Worksheet Patient Problems: Problems Problem Status Onset Osteomyelitis of toe of left foot Acute Diabetes type 2, uncontrolled Acute MRSA (methicillin resistant Staphylococcus aureus) Acute 02/19/16
--- NOTE | 2017-09-28 15:55 | ASMTCMCOM ---
CM Note CM Note Notes: 09/28/2017 Case Management Note Completed [employer] wound vac application. Notified Brianne at [facility] [phone] of MD note 09/28 indicating need for snap vac. [facility] rep Ryan will reach out to Dr. Sweet for more information. Per Brianne pts do not leave the hospital with snap Vacs but she was going to confirm with Ryan. Prescription for [employer] wound vac that needs MD signature is on front of chart. Dr. Sweet will need to sign and give to case management. Pt insurance company is requesting addtional info, per Brianne, all other paperwork that is needed has been faxed to Dr. Sweet's office by Ryan her coworker. Case Management will fax signed prescription to [facility] to complete order so vac can be released to pt tomorrow if Ryna is unable to reach Dr. Sweet's office today. RN aware. Case Management SW aware. Per Case Management [facility] is home care agency for RN cares. [facility] fax number . # [phone]. Case Management to complete process tomorrow after prescription is signed. Date Signed: 09/28/2017 03:54 PM Electronically Signed By:Caty Salamanca RN
--- NOTE | 2017-09-28 16:29 | ASMTCMCOM ---
CM Note CM Note Notes: Discussed pts case in morning rounds. Pt will require a snap vac according to surgery. Pt will be on ivabx. CM met w/ pt and family for dispo planning. Pt reported having [facility] and [facility] in the past. would like to do the learning. Referral made to [facility] and [facility]. Both facilities are able to accept. CM notified Shyanne at [facility] that is requesting to learn how to admin meds. Paper work tubed to [place] and she will fill out [facility] paperwork for wound vac. CM will need to fax completed paperwork in chart to [facility]. CM to follow. Plan: GARCIA, RN with [facility] to supply meds and [employer] for wound vac Date Signed: 09/28/2017 04:28 PM Electronically Signed By:POOJA Sevilla
[2017-09-28] MEDS: RIVAROXABAN 20 MG TAB PO SCH (17:57)
[2017-09-28] MEDS: LATANOPROST 0.005% 2.5 ML OPHT DROPS EACHEYE SCH (21:38)
[2017-09-28] MEDS: LOSARTAN POTASSIUM 25 MG TAB PO SCH (21:38)
[2017-09-28] MEDS: INSULIN GLARGINE 100 UNITS/ML UNIT SC SCH (21:38)
[2017-09-29] MEDS: VANCOMYCIN HCL/NORMAL SALINE 250 ML IV SCH ×2 (05:44→17:53)
[2017-09-29] MEDS: INSULIN LISPRO 100 UNIT/ML SC SCH ×3 (07:46→17:52)
[2017-09-29] MEDS: DILTIAZEM CD 120 MG CAP PO SCH (09:49)
[2017-09-29] MEDS: FERROUS SULFATE 325 MG TAB PO SCH (09:49)
[2017-09-29] MEDS: CHOLECALCIFEROL VIT D3 1,000 UNITS TAB PO SCH (09:49)
--- NOTE | 2017-09-29 10:09 | SOAPPROG ---
SOAP Progress Note Assessment/Plan: Assessment/Plan: POD 2: 57 yo male s/p amputation of right 4th and 5th toe including metatarsal head and incisional debridement of hematoma on right anterior lower leg Amputation site is more erythematous and swollen today, took bandage off to look , left open to air, nurse to re-bandage today Microbiology preliminary report shows enterococcus - abx per ID Shaka from [facility] came and modified his boot Wound vac - change on Sunday, pre-auth home vac, possible transition to snap vac in a couple of weeks CTA of abdomen with R leg runoff ordered D/C once home wound vac and home care are approved, no further signs of infection, and if CTA shows no need for intervention S: He is feeling well today. His bean is still quite sore, but less so than yesterday and his amputation site is not painful. He has ecchymosis on his left internal ankle from getting hit with a baseball that is tender today. He noticed increased redness and swelling in his foot. He reports that the modification to his boot has helped significantly. He has not taken any pain medication since right after surgery. No fever, chills. He is otherwise feeling well. O: General: The patient is sitting up in his chair talking on the phone. He is pleasant and in no acute distress. Right LE: Wound vac is in place, little serosanguineous fluid present in the cartridge. Bandage is removed over the right amputation site. Suture line intact , no exudate, some dried blood present. Increased swelling and erythema today proximal to the site on the dorsal aspect of the R foot. Non-blanching erythema about 5x5 cm, not hot to touch. Pulses palpable. Reported tenderness on the right medial ankle where he was hit with a baseball, light ecchymosis present, non-surgical. 09/29/17 10:41 09/29/17 10:50 Objective: Vital Signs Temp Pulse Resp BP Pulse Ox 37.2 C 66 16 135/73 H 92 09/29/17 07:14 09/29/17 07:14 09/29/17 07:14 09/29/17 07:14 09/29/17 07:14 Microbiology 09/27/17 13:06 Gram Stain - Final Toe - Tissue Laboratory Results 09/27/17 03:23 09/27/17 03:23 09/28/17 09/29/17 09/30/17 05:59 05:59 05:59 Intake Total 2200 2775 Output Total 1760 9580 Balance 439 -1025 PT 19.2 SEC (12.0-15.0) H 09/26/17 16:15 INR 1.60 (0.83-1.16) H 09/26/17 16:15 ICD10 Worksheet Patient Problems: Problems Problem Status Onset Diabetes type 2, uncontrolled Acute MRSA (methicillin resistant Staphylococcus aureus) Acute 02/19/16 Osteomyelitis of toe of left foot Acute
[2017-09-29] MEDS ORDERED: IOPAMIDOL (ISOVUE 370) 100 ML BTL IV ONE ×2 (11:02→11:18)
[2017-09-29] MEDS: THYROID 60 MG TAB PO SCH (12:05)
--- NOTE | 2017-09-29 16:06 | HOSPPROG ---
Hospitalist Progress Note Assessment/Plan: 57-year-old male status post amputation of the right foot 4th and 5th toes with a history of MR . Patient currently is postop on 09/27/[address] Hawk and of the amputation. He is on vancomycin. There is a history of proximal atrial fibrillation for which she is on anticoagulant therapy and diabetes mellitus and hypertension along with peripheral vascular disease. Today he had a CT of the abdomen with runoff showing distal atherosclerotic disease and poor visualization of the arteries of the foot. The wound VAC has been approved for his home care. Pain currently in good control. Patient is new to mt to -Right foot 4th and 5th toe infection with hx of MRSA OM status post 4th and 5th digit amputation done 09/27/[address] Sweet -continue Vancomycin for now -ID consult ordered -pAfib: cont home meds -resume Xarelto -DMII (uncontrolled) hemoglobin A1c is 10 indicating poor control. Glucose currently in good control with glargine and SSI. -HTN: home meds -PVD: CT with runoff showing poor visualization of the arteries of the right foot. Full code dispo dc home with antibiotics and wound vac once arrangements are in place Time: 35 min Subjective: Reports his pain is in good control. The only area that hurts is the area on the bean where he was hit by a baseball. Otherwise he is doing well without chest pain or shortness of breath Objective: Vital Signs Temp Pulse Resp BP Pulse Ox 37.2 C 66 16 135/73 H 92 09/29/17 07:14 09/29/17 07:14 09/29/17 07:14 09/29/17 07:14 09/29/17 07:14 Microbiology 09/27/17 13:06 Gram Stain - Final Toe - Tissue Laboratory Results 09/27/17 03:23 09/29/17 10:30 09/28/17 09/29/17 09/30/17 05:59 05:59 05:59 Intake Total 2200 2775 Output Total 1761 3800 500 Balance 439 -1025 -500 PT 19.2 SEC (12.0-15.0) H 09/26/17 16:15 INR 1.60 (0.83-1.16) H 09/26/17 16:15 - Time Spent With Patient Time Spent with Patient: greater than 35 minutes Time Spent with Patient: Greater than 35 minutes spent on this patients care, greater than 50% of time spent counseling, educating, and coordinating care regarding the above mentioned plan. - Pending Discharge Pending Discharge Within 24 Hours: Yes Pending Discharge Date: 09/30/17 Pending Discharge Time: 11:00 - Physical Exam Constitutional: no apparent distress Eyes: PERRL Ears, Nose, Mouth, Throat: moist mucous membranes, hearing normal Cardiovascular: regular rate and rhythym, no murmur, rub, or gallop Respiratory: no respiratory distress, no rales or rhonchi, clear to auscultation Gastrointestinal: normoactive bowel sounds, soft, non-tender abdomen, no palpable masses Genitourinary: no bladder fullness Skin: warm Musculoskeletal: other (Left leg shows an AKA that is healing well. Right foot shows a wound VAC in place on the anterior bean and a surgical bandage in place. The description by Dr. Sweet of the wound is appreciated. Skin is warm and dry with good pulse ) Neurologic: AAOx3 ICD10 Worksheet Patient Problems: Problems Problem Status Onset Diabetes type 2, uncontrolled Acute MRSA (methicillin resistant Staphylococcus aureus) Acute 02/19/16 Osteomyelitis of toe of left foot Acute
[2017-09-29] MEDS: RIVAROXABAN 20 MG TAB PO SCH (17:53)
[2017-09-29] MEDS: LOSARTAN POTASSIUM 25 MG TAB PO SCH (21:48)
[2017-09-29] MEDS: LATANOPROST 0.005% 2.5 ML OPHT DROPS EACHEYE SCH (21:48)
[2017-09-29] MEDS: INSULIN GLARGINE 100 UNITS/ML UNIT SC SCH (21:48)
[2017-09-30 05:36] LABS: PLATELET COUNT 281 10^3/uL (150-400)
[2017-09-30] MEDS: VANCOMYCIN HCL/NORMAL SALINE 250 ML IV SCH ×2 (06:52→18:23)
[2017-09-30] MEDS ORDERED: ANASTROZOLE 1 MG TAB PO SCH (09:00)
[2017-09-30] MEDS: CHOLECALCIFEROL VIT D3 1,000 UNITS TAB PO SCH (09:33)
[2017-09-30] MEDS: DILTIAZEM CD 120 MG CAP PO SCH (09:33)
[2017-09-30] MEDS: INSULIN LISPRO 100 UNIT/ML SC SCH ×3 (09:33→18:23)
[2017-09-30] MEDS: FERROUS SULFATE 325 MG TAB PO SCH (09:34)
--- NOTE | 2017-09-30 10:51 | SOAPPROG ---
SOAP Progress Note Assessment/Plan: Assessment/Plan: POD 3: 57 yo male s/p amputation of right 4th and 5th toe including metatarsal head and incisional debridement of hematoma on right anterior lower leg Amputation site with stable erythema on dorsum of foot. does not appear infectious. Edema is down. Microbiology preliminary report shows enterococcus - abx per ID Shaka from [facility] came and modified his boot Wound vac - Leg wound much improved. Wound vac chagens 2x per week. This week can change on Sun and see me on Sunday for vac change change on Sunday, pre-auth home vac, possible transition to snap vac in a couple of weeks CTA of abdomen with R leg runoff - 2 vessel runnoff. Has mesenteric mass and inguinal lymphadenopathy. Plan to biopsy r inguinal node as outpatient. If results negative then laparoscopy for biopsy of mesenteric mass. Dysphagia - if stays, barium swallow tomorrow. D/C once home wound vac and home care are approved S: He is feeling well today. O: General: The patient is sitting up in his chair. Aixa at bedside. Right LE: Wound measures 4x2x0.4 with 100% healthy granulation tissue at the base. Minimal serosanguinous fluid in vac. Non blanchable erythema over dorsum of foot. Incision cdi 09/29/17 10:41 09/29/17 10:50 09/30/17 10:47 Objective: Vital Signs Temp Pulse Resp BP Pulse Ox 37.3 C 65 16 144/73 H 90 L 09/30/17 08:23 09/30/17 08:23 09/30/17 08:23 09/30/17 08:23 09/30/17 08:23 Microbiology 09/27/17 13:06 Gram Stain - Final Toe - Tissue Laboratory Results 09/30/17 05:20 09/30/17 05:20 09/29/17 09/30/17 10/01/17 05:59 05:59 05:59 Intake Total 2775 1250 Output Total 3800 2050 200 Balance -1025 -800 -200 PT 19.2 SEC (12.0-15.0) H 09/26/17 16:15 INR 1.60 (0.83-1.16) H 09/26/17 16:15 ICD10 Worksheet Patient Problems: Problems Problem Status Onset Diabetes type 2, uncontrolled Acute MRSA (methicillin resistant Staphylococcus aureus) Acute 02/19/16 Osteomyelitis of toe of left foot Acute
[2017-09-30] MEDS: LR 1,000 ML IV SCH ×2 (12:00→20:49)
--- NOTE | 2017-09-30 12:28 | PCMIDPN ---
Assessment/Plan: Assessment: Right lower extremity osteomyelitis at 4th and 5th digits. Polymicrobial cultures. Pathology of the bone is still pending. Currently patient is being managed on vancomycin. Trough today is 14.7. Will continue current dose. Will watch kidney function closely over the next 24-48 hours considering rising vancomycin levels to the therapeutic ranges well as a recent dye load with the CT runoff study. That study revealed a mesenteric mass near the pancreas along with diffuse lymphadenopathy. Agree with surgical plans. Plan: 1. Continue IV vancomycin at current dose. 2. Monitor vancomycin troughs and creatinine levels closely. 3. Follow clinical appearance of the wound. 4. Await pathology report. 09/30/17 12:49 Subjective: Patient is resting comfortably in his chair in the hospital room. He denies any new complaints. He states he is feeling well. Greatest pain is from his anterior bean wound on the right lower extremity. No fevers or chills. Objective: Vancomycin # 4 Vital Signs Temp Pulse Resp BP Pulse Ox 37.3 C 65 16 144/73 H 90 L 09/30/17 08:23 09/30/17 08:23 09/30/17 08:23 09/30/17 08:23 09/30/17 08:23 Microbiology 09/27/17 13:06 Gram Stain - Final Toe - Tissue Laboratory Results 09/30/17 05:20 09/30/17 05:20 09/29/17 09/30/17 10/01/17 05:59 05:59 05:59 Intake Total 2775 1250 Output Total 3800 2050 200 Balance -1025 -800 -200 C-Reactive Protein 54.3 mg/L (<10.0) H 09/28/17 07:30 - Physical Exam General Appearance: WD/WN, alert, no apparent distress, non-toxic Respiratory: lungs clear, normal breath sounds, No respiratory distress Cardiac/Chest: regular rate, rhythm, No tachycardia Extremities: No non-tender, No normal inspection (Left lower extremity status post BKA. Right lower extremity with wound VAC on bean and foot area.) Skin: normal color, warm/dry, No rash Neuro/Psych: alert, normal mood/affect, oriented x 3 ICD10 Worksheet Patient Problems: Problems Problem Status Onset Diabetes type 2, uncontrolled Acute MRSA (methicillin resistant Staphylococcus aureus) Acute 02/19/16 Osteomyelitis of toe of left foot Acute
[2017-09-30] MEDS: THYROID 60 MG TAB PO SCH (12:36)
--- NOTE | 2017-09-30 16:20 | ASMTCMCOM ---
CM Note CM Note Notes: Pt may be ready for DCX tomorrow. Pt's wound vac has been approved. Tanika from [facility] ([phone]) stated that the serial # will be on pt's home order in their system. Pt will also have [employer] for IV ABX and [facility]. Date Signed: 09/30/2017 04:20 PM Electronically Signed By:Cherelle Puentes LCSW
--- NOTE | 2017-09-30 16:23 | ASMTCMCOM ---
CM Note CM Note Notes: Pt will return to [facility] when ready. Plan is to DC on oral doxy. Date Signed: 09/30/2017 04:22 PM Electronically Signed By:Cherelle Puentes LCSW
--- NOTE | 2017-09-30 16:55 | HOSPPROG ---
Hospitalist Progress Note Assessment/Plan: 57-year-old male status post amputation of the right foot 4th and 5th toes with a history of MRSA. Patient currently is postop on 09/27/[address] Sweet He is on vancomycin. There is a history of proximal atrial fibrillation for which he is on anticoagulant therapy and diabetes mellitus and hypertension along with peripheral vascular disease. CT angio yesterday showed 2 vessel runoff but also sees showed a mesenteric mass with retroperitoneal adenopathy. The latter finding was new. The wound VAC has been approved for his home care. Pain currently in good control. Today his creatinine abdirahman secondary to a contrast nephropathy due to the dye of the CT angio. -postop day 3. Of a right lower extremity osteomyelitis of the 4th and 5th toes and repair of a right bean hematoma with a wound VAC. Cultures of the wound have been polymicrobial in the gentleman is on vancomycin and doing well. Today the creatinine abdirahman but will continue the same dose of vancomycin. -new problem: Contrast nephropathy with a rising creatinine to 1.5. I have instituted IV fluid hydration and will recheck his creatinine. -new problem: Dysphagia. Patient reports some dysphagia intermittently without dyspepsia. A barium swallow has been ordered for further evaluation. -mesenteric mass with retroperitoneal adenopathy: This is a new finding and there is a lymph node noted in the inguinal region which Dr. Colindres plans to biopsy for possible diagnosis as an outpatient. -PAF: Is currently stable in sinus rhythm but continues on Xarelto chronically. -diabetes mellitus type 2. Hemoglobin A1c is 10 yet we have adequate control with glargine and SSI. -hypertension: In good control on his usual medications -peripheral vascular disease: CT runoff showed good visualization of 2 artery so he has adequate vascular supply to heal the wounds per Dr. Sweet -code: Full Chronic problems: Hypothyroidism currently under treatment. He also had a sleep study in 2016 which probably showed sleep apnea but the report is not available. This evaluation was done through [facility] with Dr. Kumar. The sleep study was done at [facility] [place] [facility]. dispo dc home with antibiotics and wound vac once arrangements are in place Time: 45 min Subjective: Reports no complaints. He does have some swallowing difficulty intermittently. Denies chest pain reflux nausea or vomiting. The pain in his foot he reports is in good control. The only area of pain is at the bean where he has the wound VAC which at 1 time required some morphine but is now in good control. Objective: Vital Signs Temp Pulse Resp BP Pulse Ox 37.3 C 65 16 144/73 H 90 L 09/30/17 08:23 09/30/17 08:23 09/30/17 08:23 09/30/17 08:23 09/30/17 08:23 Microbiology 09/27/17 13:06 Gram Stain - Final Toe - Tissue Laboratory Results 09/30/17 05:20 09/30/17 05:20 09/29/17 09/30/17 10/01/17 05:59 05:59 05:59 Intake Total 2775 1250 Output Total 3800 2050 200 Balance -1025 -800 -200 PT 19.2 SEC (12.0-15.0) H 09/26/17 16:15 INR 1.60 (0.83-1.16) H 09/26/17 16:15 - Time Spent With Patient Time Spent with Patient: greater than 35 minutes Time Spent with Patient: Greater than 35 minutes spent on this patients care, greater than 50% of time spent counseling, educating, and coordinating care regarding the above mentioned plan. - Pending Discharge Pending Discharge Within 24 Hours: Yes Pending Discharge Date: 10/01/17 Pending Discharge Time: 11:00 - Physical Exam Constitutional: no apparent distress Eyes: PERRL, anicteric sclera Ears, Nose, Mouth, Throat: moist mucous membranes Cardiovascular: regular rate and rhythym, no murmur, rub, or gallop Respiratory: no respiratory distress, no rales or rhonchi, clear to auscultation Gastrointestinal: normoactive bowel sounds, soft, non-tender abdomen, no palpable masses Genitourinary: no bladder fullness Musculoskeletal: other (Left lower extremity AKA. Right leg shows a wound VAC in place. Surgical wound is healing well of the amputation of his 4th and 5th toes.) Neurologic: AAOx3, CN II-XII Intact ICD10 Worksheet Patient Problems: Problems Problem Status Onset Osteomyelitis of toe of left foot Acute Diabetes type 2, uncontrolled Acute MRSA (methicillin resistant Staphylococcus aureus) Acute 02/19/16
[2017-09-30] MEDS: VANCOMYCIN 1 GM in D5W 250 ML IV SCH ×2 (18:06→19:24)
[2017-09-30] MEDS: RIVAROXABAN 20 MG TAB PO SCH (18:07)
[2017-09-30] MEDS: LOSARTAN POTASSIUM 25 MG TAB PO SCH (22:10)
[2017-09-30] MEDS: INSULIN GLARGINE 100 UNITS/ML UNIT SC SCH (22:10)
[2017-09-30] MEDS: LATANOPROST 0.005% 2.5 ML OPHT DROPS EACHEYE SCH (22:13)
[2017-10-01] MEDS: LR 1,000 ML IV SCH ×3 (03:29→21:25)
[2017-10-01] MEDS ORDERED: SODIUM CL NASAL 45 ML BTL EACHNARE PRN (03:38)
[2017-10-01] MEDS: VANCOMYCIN HCL/NORMAL SALINE 250 ML IV SCH ×2 (05:28→17:29)
[2017-10-01 05:38] LABS: PLATELET COUNT 281 10^3/uL (150-400)
--- NOTE | 2017-10-01 09:53 | SOAPPROG ---
SOAP Progress Note Assessment/Plan: I re-examined patient at 1:30pm - erythema of lateral right foot significantly increased, tenderness of lateral foot/metatarsal. Ecchymosis around surgical incision. Edema increased. Dr. Huertas has also evaluated- will add antibiotic coverage. I marked the area with black marker - continue to monitor. May require repeat imaging - MRI? Discussed with Dr. Dao. Assessment/Plan: 57yo M POD#4 s/p amputation of right 4th and 5th toe including metatarsal head and debridement of traumatic hematoma on right anterior bean Amputation site with stable erythema on dorsum of foot. does not appear infectious. Edema is down. Microbiology enterococcus faecalis - abx per ID Shaka from [facility] came and modified his boot Wound vac - change M and F this week. CT showed mesenteric mass and inguinal LAD. R LN bx as outpatient. If negative, then may need laparoscopic bx of mesenteric mass Dysphagia - esophogram today Dispo: home today after swallow per hospitalists. home health to change dressing on sunday, follow-up michelle/jermaine on sunday for vac change. S: Feeling well. Right bean much more painful than foot. about to get into shower O: Sitting at edge of bed, comfortable, NAD, at bedside No increased WOB R anterior bean wound vac intact R foot dressing intact without staining Min RLE edema. Min surrounding erythema 10/01/17 13:45 Objective: Vital Signs Temp Pulse Resp BP Pulse Ox 36.7 C 69 18 151/81 H 92 10/01/17 08:00 10/01/17 08:00 10/01/17 08:00 10/01/17 08:00 10/01/17 08:00 Microbiology 09/27/17 13:06 Gram Stain - Final Toe - Tissue Laboratory Results 10/01/17 05:25 10/01/17 05:25 09/30/17 10/01/17 10/02/17 05:59 05:59 05:59 Intake Total 1250 3705 Output Total 2050 1525 Balance -800 2180 PT 19.2 SEC (12.0-15.0) H 09/26/17 16:15 INR 1.60 (0.83-1.16) H 09/26/17 16:15 ICD10 Worksheet Patient Problems: Problems Problem Status Onset Diabetes type 2, uncontrolled Acute MRSA (methicillin resistant Staphylococcus aureus) Acute 02/19/16 Osteomyelitis of toe of left foot Acute
[2017-10-01] MEDS: INSULIN LISPRO 100 UNIT/ML SC SCH ×4 (10:02→18:21)
[2017-10-01] MEDS: CHOLECALCIFEROL VIT D3 1,000 UNITS TAB PO SCH (10:36)
[2017-10-01] MEDS: FERROUS SULFATE 325 MG TAB PO SCH (10:36)
[2017-10-01] MEDS: THYROID 60 MG TAB PO SCH (10:36)
[2017-10-01] MEDS: DILTIAZEM CD 120 MG CAP PO SCH (10:36)
--- NOTE | 2017-10-01 12:50 | PCMIDPN ---
Assessment/Plan: Assessment: Right lower extremity osteomyelitis at 4th and 5th digits. Polymicrobial cultures. Pathology of the bone is still pending. Currently patient is being managed on vancomycin. Erythema over the dorsum of the foot around the 4th and 5th metatarsals. This is greater than expected. Will continue antibiotic therapy and monitoring of appearance. Plan: 1. Continue IV vancomycin at current dose. 2. Monitor vancomycin troughs and creatinine levels closely. 3. Follow clinical appearance of the wound. 4. Add ceftriaxone 1 g IV Q 24 hours. Subjective: Patient resting in his chair in his hospital room. No fevers or chills. Tolerating vancomycin without issue. Notes that the dorsum of his foot near the 4th and 5th MTPs looks more erythematous and this seems to be spreading up his foot. Objective: Vancomycin # 5 Vital Signs Temp Pulse Resp BP Pulse Ox 36.7 C 69 18 151/81 H 92 10/01/17 08:00 10/01/17 08:00 10/01/17 08:00 10/01/17 08:00 10/01/17 08:00 Microbiology 09/27/17 13:06 Gram Stain - Final Toe - Tissue Laboratory Results 10/01/17 05:25 10/01/17 05:25 09/30/17 10/01/17 10/02/17 05:59 05:59 05:59 Intake Total 1250 3705 Output Total 2050 1525 Balance -800 2180 C-Reactive Protein 54.3 mg/L (<10.0) H 09/28/17 07:30 - Physical Exam General Appearance: WD/WN, alert, no apparent distress, non-toxic Respiratory: lungs clear, normal breath sounds, No respiratory distress Cardiac/Chest: regular rate, rhythm, No tachycardia Extremities: inflammation, erythema, No non-tender, No normal inspection Skin: normal color, warm/dry, No rash Neuro/Psych: alert, normal mood/affect, oriented x 3 ICD10 Worksheet Patient Problems: Problems Problem Status Onset Diabetes type 2, uncontrolled Acute MRSA (methicillin resistant Staphylococcus aureus) Acute 02/19/16 Osteomyelitis of toe of left foot Acute
--- NOTE | 2017-10-01 14:04 | HOSPPROG ---
Hospitalist Progress Note Assessment/Plan: DIAGNOSES: -diabetic foot infection, status post amputation of 4th and 5th toes and metatarsal heads (Enterococcus faecalis in cultures) -worsening cellulitis and edema of the foot today by clinical examination -suspected hypothyroidism (new problem identified today) -his TSH measure here is at 14.9, suspect this is real but would recheck once his infection is better controlled to be sure there is not any influence of his illness on the TSH -mesenteric mass with enlarged inguinal lymph nodes -plans for outpatient needle biopsy of lymph node -acute on chronic kidney disease -better today on laboratory assessment -chronic atrial fibrillation, currently stable -diabetes mellitus type 2 -diabetes numbers look better today but have been running high, it require ongoing close following and may need further adjustments and management I reviewed today in detail with Dr. Luis A Boyd and with of surgery; we discussed the changes in his foot, the need for ongoing monitoring of the foot and wound care along with probably adding some other antibiotic, and will potentially need further imaging, may need further surgical debridement or tissue removal. This patient is high complexity with ongoing high risk factors for possible further loss of limb tissue. PLANS: -I will review further with Dr. Huertas after he has opportunity to see the patient and can make antibiotic recommendations; continue vancomycin for now -will not discharge the patient today -continue current wound care -Ms Boyd will further review with Dr. Sweet, and we will make further plans and recommendations after that. For now will plan on not discharging him today , continue current antibiotics unless changes recommended by Dr. Huertas, reassess tomorrow and make further plans after that. May need potentially further imaging or further procedures for the foot. -wound VAC is all set up for discharge for his calf wound once he goes home; he has also been fitted for a boot for his foot, if there are any other procedures for his foot this may need to be adjusted -plans for needle biopsy of lymph node related to his mesenteric mass as an outpatient in clinic -would recheck his TSH once his infection is clearly settle down, probably in 2- 3 weeks, may need to start on replacement therapy and may need other diagnostic assessments -continue current care for atrial fibrillation SUBJECTIVE: The patient feels overall fairly well although he notices significant increase in redness of his foot today OBJECTIVE Vitals reviewed: Some mild hypertension otherwise stable without fever Credit Manager, my review: Sinus rhythm Exam: alert oriented skin warm dry color ok resps not labored lungs clear BSs heart regular abd soft nondistended nontender, bowel sounds present Limbs - his right foot now has much more significant redness warmth and edema particularly over the entire dorsal surface of the foot and wrapping around to the posterior portion of the ankle, all distal to the malleoli at this point. I am unable to find any palpable fluctuance, and do not see any necrotic tissue. His incision line on the distal lateral foot looks very good with sutures still in place. iv site ok Laboratory data: Creatinine down slightly today Sugars improved slightly today but still running at the high end of where we would like him to be in hospital Objective: Vital Signs Temp Pulse Resp BP Pulse Ox 36.7 C 69 18 151/81 H 92 10/01/17 08:00 10/01/17 08:00 10/01/17 08:00 10/01/17 08:00 10/01/17 08:00 Microbiology 09/27/17 13:06 Gram Stain - Final Toe - Tissue Laboratory Results 10/01/17 05:25 10/01/17 05:25 09/30/17 10/01/17 10/02/17 06:59 06:59 06:59 Intake Total 1250 3705 Output Total 2050 1525 Balance -800 2180 PT 19.2 SEC (12.0-15.0) H 09/26/17 16:15 INR 1.60 (0.83-1.16) H 09/26/17 16:15 - Time Spent With Patient Time Spent with Patient: greater than 35 minutes Time Spent with Patient: Greater than 35 minutes spent on this patients care, greater than 50% of time spent counseling, educating, and coordinating care regarding the above mentioned plan. ICD10 Worksheet Patient Problems: Problems Problem Status Onset Diabetes type 2, uncontrolled Acute MRSA (methicillin resistant Staphylococcus aureus) Acute 02/19/16 Osteomyelitis of toe of left foot Acute
--- NOTE | 2017-10-01 14:16 | ASMTCMCOM ---
CM Note CM Note Notes: Pt is not ready for discharge due to his foot being redder and more swollen - surgery and ID are following. [facility] wound vac paperwork is in front of pt's chart. Please contact Brianne at [facility] [phone] when pt is ready for d/c. Wound vac is in CM office - be sure to match the serial # with the wound vac that is provided to pt. [facility], [place] and [facility] notified. Date Signed: 10/01/2017 02:16 PM Electronically Signed By:KAREN Ruvalcaba
[2017-10-01] MEDS: cefTRIAXone 1 GM in STERILE WATER INJ 10 ML IV SCH (17:28)
[2017-10-01] MEDS: RIVAROXABAN 20 MG TAB PO SCH (17:28)
[2017-10-01] MEDS: LATANOPROST 0.005% 2.5 ML OPHT DROPS EACHEYE SCH (21:26)
[2017-10-01] MEDS: INSULIN GLARGINE 100 UNITS/ML UNIT SC SCH (21:26)
[2017-10-01] MEDS: LOSARTAN POTASSIUM 25 MG TAB PO SCH (21:27)
[2017-10-02] MEDS: LR 1,000 ML IV SCH ×2 (04:00→13:10)
[2017-10-02] MEDS: VANCOMYCIN HCL/NORMAL SALINE 250 ML IV SCH (05:27)
[2017-10-02] MEDS: INSULIN LISPRO 100 UNIT/ML SC SCH ×3 (09:25→18:38)
[2017-10-02] MEDS: cefTRIAXone 1 GM in STERILE WATER INJ 10 ML IV SCH (09:25)
[2017-10-02] MEDS: FERROUS SULFATE 325 MG TAB PO SCH (09:26)
[2017-10-02] MEDS: THYROID 60 MG TAB PO SCH (09:26)
[2017-10-02] MEDS: DILTIAZEM CD 120 MG CAP PO SCH (09:26)
[2017-10-02] MEDS: CHOLECALCIFEROL VIT D3 1,000 UNITS TAB PO SCH (09:26)
--- NOTE | 2017-10-02 12:06 | PCMIDPN ---
Assessment/Plan: Assessment/Plan: 1. Osteomyelitis s/p 4,5th toe amputation plus metatarsal head and debridement of leg hematoma.: - Prior to admit was on bactrim. - CX wtih Enterococcus. -Currently on Vanco plus Ceftriaxone - no extension of erythema but no significant improvement - If doesn't improve, consider adjusting antibiotics. - recheck labs in AM. check vanco trough in Am. Last vanco trough on 09/30 =14. 7 - care coordinated with hospitalist team, RN. 2. New cellulitis of right foot: - see above Meds vanco 1g q12- ceftriaxone 1g daily- Subjective: low grade temp. hasn't slept much. not c/o of much pain involving foot at present. redeness about the same. denies sob. soft stools Objective: Vital Signs Temp Pulse Resp BP Pulse Ox 37.3 C 76 16 134/72 H 90 L 10/02/17 08:00 10/02/17 08:00 10/02/17 08:00 10/02/17 08:00 10/02/17 08:00 Microbiology 09/27/17 13:06 Gram Stain - Final Toe - Tissue Laboratory Results 10/01/17 05:25 10/01/17 05:25 10/01/17 10/02/17 10/03/17 05:59 05:59 05:59 Intake Total 3980 5900 Output Total 1525 2800 450 Balance 2455 3100 -450 C-Reactive Protein 54.3 mg/L (<10.0) H 09/28/17 07:30 - Physical Exam General Appearance: alert, no apparent distress Respiratory: lungs clear Cardiac/Chest: regular rate, rhythm Extremities: swelling Abdomen: normal bowel sounds, non-tender, soft, No distended Skin: erythema (right foot: incision site with sutures, dried blood intact, no drainage. Erythema extending onto dorsum of foot is within the demarcated areas. warm. pitting edema. leg: with wound vac.) ICD10 Worksheet Patient Problems: Problems Problem Status Onset Diabetes type 2, uncontrolled Acute MRSA (methicillin resistant Staphylococcus aureus) Acute 02/19/16 Osteomyelitis of toe of left foot Acute
--- NOTE | 2017-10-02 14:01 | SOAPPROG ---
SOAP Progress Note Assessment/Plan: Assessment/Plan: 57yo M POD#5 s/p amputation of right 4th and 5th toe including metatarsal head and debridement of traumatic hematoma on right anterior bean Amputation site with stable erythema and edema - not changed since yesterday IV abx per ID Shaka from [facility] came and modified his boot Wound vac - change W and F this week. CT showed mesenteric mass and inguinal LAD. R LN bx as outpatient. If negative, then may need laparoscopic bx of mesenteric mass Dysphagia - esophogram showed GERD Dispo: S: Feeling bad this morning, didnt sleep well last night. O: Laying in bed, comfortable, NAD, at bedside No increased WOB R anterior bean wound vac intact R foot edema and erythema stable, erythema does not extend beyond marking. Tender to palpation lateral foot Objective: Vital Signs Temp Pulse Resp BP Pulse Ox 37.3 C 76 16 134/72 H 90 L 10/02/17 08:00 10/02/17 08:00 10/02/17 08:00 10/02/17 08:00 10/02/17 08:00 Microbiology 09/27/17 13:06 Gram Stain - Final Toe - Tissue Laboratory Results 10/01/17 05:25 10/01/17 05:25 10/01/17 10/02/17 10/03/17 05:59 05:59 05:59 Intake Total 3980 5900 Output Total 1525 2800 450 Balance 2455 3100 -450 PT 19.2 SEC (12.0-15.0) H 09/26/17 16:15 INR 1.60 (0.83-1.16) H 09/26/17 16:15 ICD10 Worksheet Patient Problems: Problems Problem Status Onset Diabetes type 2, uncontrolled Acute MRSA (methicillin resistant Staphylococcus aureus) Acute 02/19/16 Osteomyelitis of toe of left foot Acute
--- NOTE | 2017-10-02 14:48 | ASMTCMCOM ---
CM Note CM Note Notes: 10/02/2017 Case Management Note Discussed pt in rounds with . Pt was sleeping. Case Management faxed updates to [facility] and [facility]. Wound Vac application is completed for d/c. Case Management d/c poc: [facility] with [facility] for IV antibiotic needs. Case Management to follow. Date Signed: 10/02/2017 02:48 PM Electronically Signed By:Caty Salamanca RN
[2017-10-02] MEDS ORDERED: BENZONATATE 100 MG CAP PO PRN (15:37)
--- NOTE | 2017-10-02 15:39 | HOSPPROG ---
Hospitalist Progress Note Assessment/Plan: DIAGNOSES: -diabetic foot infection, status post amputation of 4th and 5th toes and metatarsal heads (Enterococcus faecalis in cultures) -new onset cellulitis and edema of the foot 10/01 by clinical examination; antibiotics broadened, no change overnight but no worsening -low-grade fever today will need to watch that very carefully -will re-examine during wound care assessment tomorrow with surgery and Infectious Disease, consider reimaging at that time if no better -suspected hypothyroidism (new problem identified today) -his TSH measure here is at 14.9, suspect this is real but would recheck once his infection is better controlled to be sure there is not any influence of his illness on the TSH -new onset of cough without shortness of breath -clear lung exam and no hypoxemia or change in vitals, will watch carefully, this could be related to his IV fluids, ? If any relation to his low-grade temperature today -mesenteric mass with enlarged inguinal lymph nodes -plans for outpatient needle biopsy of lymph node -acute on chronic kidney disease -very near to baseline, can stop hydration at this point which will help with his sleep at night -chronic atrial fibrillation, currently stable -diabetes mellitus type 2 -diabetes numbers look better today but have been running high, it require ongoing close following and may need further adjustments and management -the patient is taking anastrozole weekly at home, but he does not really remember why his taking that. It has been prescribed by Rudy Jordan MD I reviewed today in detail with Dr. Sorto; we discussed the changes in his foot, the need for ongoing monitoring of the foot and wound care along with probably adding some other antibiotic, and will potentially need further imaging, may need further surgical debridement or tissue removal. This patient is high complexity with ongoing high risk factors for possible further loss of limb tissue. PLANS: -continue current antibiotics -continue current wound care -continue current wound care, due for wound VAC change tomorrow -continue current care for atrial fibrillation -reassess wounds and cellulitis tomorrow, consider further advanced imaging of his foot unless he is getting notably better -wound VAC is all set up for discharge for his calf wound once he goes home; he has also been fitted for a boot for his foot, if there are any other procedures for his foot this may need to be adjusted -plans for needle biopsy of lymph node related to his mesenteric mass as an outpatient in clinic -would recheck his TSH once his infection is clearly settle down, probably in 2- 3 weeks, may need to start on replacement therapy and may need other diagnostic assessments SUBJECTIVE: Slept very poorly last night and this is making him feel notably worse with malaise today. Noise of IV fluid pump, frequent urination, and significant cough were what kept him awake along with pain, he did not take pain medicine last night. 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: Sinus rhythm Exam: alert oriented skin warm dry color ok resps not labored lungs clear BSs heart regular abd soft nondistended nontender, bowel sounds present Limbs - right foot really unchanged in appearance from yesterday, still with some cellulitis but no definite collection iv site ok Objective: Vital Signs Temp Pulse Resp BP Pulse Ox 37.5 C 70 16 156/82 H 93 10/02/17 15:00 10/02/17 15:00 10/02/17 15:00 10/02/17 15:00 10/02/17 15:08 Microbiology 09/27/17 13:06 Gram Stain - Final Toe - Tissue Laboratory Results 10/01/17 05:25 10/01/17 05:25 10/01/17 10/02/17 10/03/17 06:59 06:59 06:59 Intake Total 3980 5900 Output Total 1525 2800 850 Balance 2455 3100 -850 PT 19.2 SEC (12.0-15.0) H 09/26/17 16:15 INR 1.60 (0.83-1.16) H 09/26/17 16:15 - Time Spent With Patient Time Spent with Patient: greater than 35 minutes Time Spent with Patient: Greater than 35 minutes spent on this patients care, greater than 50% of time spent counseling, educating, and coordinating care regarding the above mentioned plan. ICD10 Worksheet Patient Problems: Problems Problem Status Onset Diabetes type 2, uncontrolled Acute MRSA (methicillin resistant Staphylococcus aureus) Acute 02/19/16 Osteomyelitis of toe of left foot Acute
[2017-10-02] MEDS ORDERED: VANCOMYCIN 1 GM in D5W 250 ML IV SCH (18:00)
[2017-10-02] MEDS: RIVAROXABAN 20 MG TAB PO SCH (18:37)
[2017-10-02] MEDS: LOSARTAN POTASSIUM 25 MG TAB PO SCH (19:40)
[2017-10-02] MEDS: oxyCODONE IR 5 MG TAB PO PRN (19:42)
[2017-10-02] MEDS: LATANOPROST 0.005% 2.5 ML OPHT DROPS EACHEYE SCH (20:53)
[2017-10-02] MEDS: INSULIN GLARGINE 100 UNITS/ML UNIT SC SCH (20:54)
[2017-10-02] MEDS: VANCOMYCIN 1 GM in D5W 250 ML IV SCH (20:55)
--- NOTE | 2017-10-03 08:50 | SOAPPROG ---
<Dasha Sweet Mallory - Last Filed: 10/03/17 09:07> SOAP Progress Note Assessment/Plan: Assessment/Plan: 57 yo male s/p amputation of right 4th and 5th toe including metatarsal head and incisional debridement of hematoma on right anterior lower leg Febrile at 38.4C last night, afebrile today Amputation site decreased erythema, does not appear infectious. Still edematous. Continue abx per ID Wound vac - changed wound vac today with Amniofill at the base, next change in one week. CTA of abdomen with R leg runoff - 2 vessel runnoff. Has mesenteric mass and inguinal lymphadenopathy. Plan to biopsy r inguinal node as outpatient. If results negative then laparoscopy for biopsy of mesenteric mass. Dysphagia -Barium swallow on Sunday was normal, f/u outpatient with GI vs ENT D/C once afebrile for 24 hours. S: He is feeling well today, slept well last night. O: General: The patient is laying in his bed. Right LE: Wound measures 4.2 x 2 x 0.4 with 100% healthy granulation tissue at the base. Minimal serosanguinous fluid in vac. Non blanchable erythema over dorsum of foot has significantly decreased, decreased edema as well. Incision cdi Objective: Vital Signs Temp Pulse Resp BP Pulse Ox 37.0 C 86 15 132/90 H 96 10/03/17 07:00 10/03/17 07:00 10/03/17 07:00 10/03/17 07:00 10/03/17 07:00 Microbiology 09/27/17 13:06 Gram Stain - Final Toe - Tissue Laboratory Results 10/01/17 05:25 10/01/17 05:25 10/02/17 10/03/17 10/04/17 05:59 05:59 05:59 Intake Total 5900 2300 Output Total 2800 2025 Balance 3100 275 PT 19.2 SEC (12.0-15.0) H 09/26/17 16:15 INR 1.60 (0.83-1.16) H 09/26/17 16:15 ICD10 Worksheet Patient Problems: Problems Problem Status Onset Diabetes type 2, uncontrolled Acute MRSA (methicillin resistant Staphylococcus aureus) Acute 02/19/16 Osteomyelitis of toe of left foot Acute <La Boyd - Last Filed: 10/03/17 14:58> SOAP Progress Note Assessment/Plan: Assessment: Amniofill 100mg, [id number]. expiration 01/01/22 Plan: 10/03/17 14:58 Objective: Vital Signs Temp Pulse Resp BP Pulse Ox 37.0 C 95 15 97/77 L 96 10/03/17 07:00 10/03/17 10:23 10/03/17 07:00 10/03/17 10:23 10/03/17 07:00 Microbiology 09/27/17 13:06 Gram Stain - Final Toe - Tissue Laboratory Results 10/03/17 08:45 10/03/17 08:45 10/02/17 10/03/17 10/04/17 05:59 05:59 05:59 Intake Total 5900 2300 Output Total 2800 2025 Balance 3100 275 PT 19.2 SEC (12.0-15.0) H 09/26/17 16:15 INR 1.60 (0.83-1.16) H 09/26/17 16:15
[2017-10-03 08:53] LABS: PLATELET COUNT 303 10^3/uL (150-400)
[2017-10-03] MEDS ORDERED: FUROSEMIDE 20 MG/2 ML VIAL IVP ONE (09:31)
[2017-10-03] MEDS: cefTRIAXone 1 GM in STERILE WATER INJ 10 ML IV SCH (10:19)
[2017-10-03] MEDS: CHOLECALCIFEROL VIT D3 1,000 UNITS TAB PO SCH (10:20)
[2017-10-03] MEDS: THYROID 60 MG TAB PO SCH (10:21)
[2017-10-03] MEDS: VANCOMYCIN 1 GM in D5W 250 ML IV SCH ×2 (10:22→21:23)
[2017-10-03] MEDS: FERROUS SULFATE 325 MG TAB PO SCH (10:22)
[2017-10-03] MEDS: INSULIN LISPRO 100 UNIT/ML SC SCH ×3 (10:22→17:39)
[2017-10-03] MEDS: DILTIAZEM CD 120 MG CAP PO SCH (10:23)
--- NOTE | 2017-10-03 13:46 | HOSPPROG ---
Hospitalist Progress Note Assessment/Plan: DIAGNOSES: -diabetic foot infection, status post amputation of 4th and 5th toes and metatarsal heads (Enterococcus faecalis in cultures) -new onset cellulitis and edema of the foot 10/01 by clinical examination; antibiotics broadened, -ft less red today but he did have higher fever last night and his white blood cell count is higher -suspected hypothyroidism (new problem identified today) -his TSH measure here is at 14.9, suspect this is real but would recheck once his infection is better controlled to be sure there is not any influence of his illness on the TSH -new onset of cough without shortness of breath -clear lung exam and no hypoxemia or change in vitals, will watch carefully, this could be related to his IV fluids, ? If any relation to his low-grade temperature today -mesenteric mass with enlarged inguinal lymph nodes -plans for outpatient needle biopsy of lymph node -acute on chronic kidney disease -very near to baseline -chronic atrial fibrillation, currently stable -diabetes mellitus type 2 -diabetes numbers look better today but have been running high, it require ongoing close following and may need further adjustments and management -the patient is taking anastrozole weekly at home, but he does not really remember why his taking that. It has been prescribed by Rudy Jordan MD I examined the patient together today with Dr. Dasha Sweet and was present during the wound VAC change and foot wound examination. Also visited the patient during our multidisciplinary rounds today This patient is high complexity with ongoing high risk factors for possible further loss of limb tissue. PLANS: -continue current antibiotics -continue current leg wound care, with wound VAC now for weekly change out -continue current ft wound care -will give a dose of diuretic today to reduce foot edema try and improve circulation for better healing -continue current care for atrial fibrillation -reassess wounds and cellulitis daily, consider further advanced imaging if fever persists or foot not continuing to improve -wound VAC is all set up for discharge for his calf wound once he goes home; he has also been fitted for a boot for his foot, if there are any other procedures for his foot this may need to be adjusted -plans for needle biopsy of lymph node related to his mesenteric mass as an outpatient in clinic -would recheck his TSH once his infection is clearly settle down, probably in 2- 3 weeks, may need to start on replacement therapy and may need other diagnostic assessments SUBJECTIVE: Slept better last night off IV fluids Feels better with better rest Otherwise no new pain, no chills or sweats OBJECTIVE Vitals reviewed: T-max 38.4 degrees overnight, Some mild hypertension otherwise stable 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 Education Coordinator, my review: Sinus rhythm Exam: alert oriented skin warm dry color ok resps not labored lungs clear BSs heart regular abd soft nondistended nontender, bowel sounds present Limbs - right foot with some decrease in redness and warmth though cellulitis still present, the edema actually appears increased at the foot and ankle to me today; his pretibial area wound looks very good at the time of wound VAC change today Laboratory data: white blood cell count is further elevated at 11,000 thousand today Creatinine stable at 1.4 today the risk of a chemistries unremarkable Objective: Vital Signs Temp Pulse Resp BP Pulse Ox 37.0 C 95 15 97/77 L 96 10/03/17 07:00 10/03/17 10:23 10/03/17 07:00 10/03/17 10:23 10/03/17 07:00 Microbiology 09/27/17 13:06 Gram Stain - Final Toe - Tissue Laboratory Results 10/03/17 08:45 10/03/17 08:45 10/02/17 10/03/17 10/04/17 06:59 06:59 06:59 Intake Total 5900 2300 Output Total 2800 2025 Balance 3100 275 PT 19.2 SEC (12.0-15.0) H 09/26/17 16:15 INR 1.60 (0.83-1.16) H 09/26/17 16:15 - Time Spent With Patient Time Spent with Patient: greater than 35 minutes Time Spent with Patient: Greater than 35 minutes spent on this patients care, greater than 50% of time spent counseling, educating, and coordinating care regarding the above mentioned plan. ICD10 Worksheet Patient Problems: Problems Problem Status Onset Diabetes type 2, uncontrolled Acute MRSA (methicillin resistant Staphylococcus aureus) Acute 02/19/16 Osteomyelitis of toe of left foot Acute
--- NOTE | 2017-10-03 15:08 | PCMIDPN ---
Assessment/Plan: Assessment: Right lower extremity osteomyelitis at 4th and 5th digits. Polymicrobial cultures. Pathology of the bone is still pending. Currently patient is being managed on vancomycin and ceftriaxone. Erythema over the dorsum of the foot around the 4th and 5th metatarsals is significantly improved today. Will continue the IV antibiotics at present time. Hopefully can transition to outpatient management in the next 1-2 days. Plan: 1. Continue IV vancomycin. 2. Monitor vancomycin troughs and creatinine levels closely. 3. Continue ceftriaxone. 4. Follow appearance of dorsum of right foot. 10/03/17 19:04 Subjective: Patient is doing well today. He notes that his foot is looking and feeling better. No problems with itching or redness. Objective: Vancomycin # 7 Ceftriaxone # 2 Vital Signs Temp Pulse Resp BP Pulse Ox 37.0 C 95 15 97/77 L 96 10/03/17 07:00 10/03/17 10:23 10/03/17 07:00 10/03/17 10:23 10/03/17 07:00 Microbiology 09/27/17 13:06 Gram Stain - Final Toe - Tissue Laboratory Results 10/03/17 08:45 10/03/17 08:45 10/02/17 10/03/17 10/04/17 05:59 05:59 05:59 Intake Total 5900 2300 Output Total 2800 2025 Balance 3100 275 C-Reactive Protein 54.3 mg/L (<10.0) H 09/28/17 07:30 - Physical Exam General Appearance: WD/WN, alert, no apparent distress, non-toxic Respiratory: lungs clear, normal breath sounds, No respiratory distress Cardiac/Chest: regular rate, rhythm, No tachycardia Extremities: non-tender, erythema (Significantly improved dorsum right foot), No normal inspection Skin: normal color, warm/dry, No rash Neuro/Psych: alert, normal mood/affect, oriented x 3 ICD10 Worksheet Patient Problems: Problems Problem Status Onset Diabetes type 2, uncontrolled Acute MRSA (methicillin resistant Staphylococcus aureus) Acute 02/19/16 Osteomyelitis of toe of left foot Acute
[2017-10-03] MEDS: RIVAROXABAN 20 MG TAB PO SCH (17:40)
[2017-10-03] MEDS: oxyCODONE IR 5 MG TAB PO PRN (17:41)
[2017-10-03] MEDS: LOSARTAN POTASSIUM 25 MG TAB PO SCH (21:22)
[2017-10-03] MEDS: INSULIN GLARGINE 100 UNITS/ML UNIT SC SCH (21:23)
[2017-10-03] MEDS: LATANOPROST 0.005% 2.5 ML OPHT DROPS EACHEYE SCH (21:24)
[2017-10-04 04:55] LABS: PLATELET COUNT 325 10^3/uL (150-400)
--- NOTE | 2017-10-04 08:19 | SOAPPROG ---
SOAP Progress Note Assessment/Plan: Assessment/Plan: 57 yo male s/p amputation of right 4th and 5th toe including metatarsal head and incisional debridement of hematoma on right anterior lower leg Afebrile for the past 24 hours Amputation site significantly decreased erythema and edema, some blistering present from the edema. Continue abx per ID Wound vac - change wound vac in my office on or Sun CTA of abdomen with R leg runoff - 2 vessel runnoff. Has mesenteric mass and inguinal lymphadenopathy. Plan to biopsy r inguinal node as outpatient. If results negative then laparoscopy for biopsy of mesenteric mass. Dysphagia -Barium swallow on Sunday was normal, f/u outpatient with GI vs ENT Discharge: cleared to D/C from a surgical standpoint S: He is feeling very well today. Pain controlled. O: General: The patient is laying in his bed. Right LE: Wound vac in place with Amniofill at base. Minimal serosanguinous fluid in vac. Mild erythema over dorsum of foot has significantly decreased, decreased edema as well, some blistering present on the dorsum of the foot due to the edema. Incision cdi 10/04/17 08:14 Objective: Vital Signs Temp Pulse Resp BP Pulse Ox 36.9 C 94 14 110/82 H 90 L 10/04/17 07:24 10/04/17 07:24 10/04/17 07:24 10/04/17 07:24 10/04/17 07:24 Microbiology 09/27/17 13:06 Gram Stain - Final Toe - Tissue Laboratory Results 10/04/17 04:40 10/04/17 04:40 10/03/17 10/04/17 10/05/17 05:59 05:59 05:59 Intake Total 2300 1450 Output Total 2025 900 450 Balance 275 550 -450 PT 19.2 SEC (12.0-15.0) H 09/26/17 16:15 INR 1.60 (0.83-1.16) H 09/26/17 16:15 ICD10 Worksheet Patient Problems: Problems Problem Status Onset Diabetes type 2, uncontrolled Acute MRSA (methicillin resistant Staphylococcus aureus) Acute 02/19/16 Osteomyelitis of toe of left foot Acute
[2017-10-04] MEDS: cefTRIAXone 1 GM in STERILE WATER INJ 10 ML IV SCH (08:24)
[2017-10-04] MEDS: CHOLECALCIFEROL VIT D3 1,000 UNITS TAB PO SCH (08:25)
[2017-10-04] MEDS: DILTIAZEM CD 120 MG CAP PO SCH (08:25)
[2017-10-04] MEDS: FERROUS SULFATE 325 MG TAB PO SCH (08:25)
[2017-10-04] MEDS: INSULIN LISPRO 100 UNIT/ML SC SCH ×3 (08:36→18:00)
--- NOTE | 2017-10-04 08:49 | HOSPPROG ---
Hospitalist Progress Note Assessment/Plan: DIAGNOSES: -diabetic foot infection, status post amputation of 4th and 5th toes and metatarsal heads (Enterococcus faecalis in cultures) -new onset cellulitis and edema of the foot 10/01 by clinical examination; antibiotics broadened, -cellultis improving but will need to follow for resolution and follow the blister closely -acute on chronic kidney disease; new significant worsening today, ? due to vanco, diuretic or other -need to recheck vanco level -do not think diuresis well be effective as did not reduce edema and now creat up after one dose -suspected hypothyroidism (new problem identified today) -his TSH measure here is at 14.9, suspect this is real but would recheck once his infection is better controlled to be sure there is not any influence of his illness on the TSH -new onset of cough without shortness of breath -clear lung exam and no hypoxemia or change in vitals, will watch carefully, this could be related to his IV fluids, ? If any relation to his low-grade temperature today -mesenteric mass with enlarged inguinal lymph nodes -plans for outpatient needle biopsy of lymph node -chronic atrial fibrillation, currently stable -diabetes mellitus type 2 -diabetes numbers look better today but have been running high, it require ongoing close following and may need further adjustments and management -the patient is taking anastrozole weekly at home, but he does not really remember why his taking that. It has been prescribed by Rudy Jordan MD I have reviewed to day with Dr Sweet and Dr Huertas This patient is high complexity with ongoing high risk factors for possible further loss of limb tissue. PLANS: -stat vanco trough now, recheck creat at 13:00 today, and daily monitoring -hold this am's vanco until level back, review w ID and pharm to consider redoing dose; otherwise continue current antibiotics -continue current leg wound care, with wound VAC now for weekly change out -continue current ft wound care -no further diuretic -continue current care for atrial fibrillation -reassess wounds and cellulitis daily, consider further advanced imaging if fever persists or foot not continuing to improve -wound VAC is all set up for discharge for his calf wound once he goes home; he has also been fitted for a boot for his foot, if there are any other procedures for his foot this may need to be adjusted -plans for needle biopsy of lymph node related to his mesenteric mass as an outpatient in clinic -would recheck his TSH once his infection is clearly settle down, probably in 2- 3 weeks, may need to start on replacement therapy and may need other diagnostic assessments SUBJECTIVE: slept well again last night but had a lot of itching and some rash on R arm around 11:00pm, has nearly entirely resolved spontaneously no fever sxs OBJECTIVE Vitals reviewed: T-max 37.5 degrees overnight, Some mild hypertension otherwise stable Pattern Puncher, my review: Sinus rhythm Exam: alert oriented skin warm dry color ok resps not labored lungs clear BSs heart regular abd soft nondistended nontender, bowel sounds present Limbs - right foot with nearly complete resolution of redness and warmth but with formation of a small blister distal lateral dorsum of foot, foot edema unchanged, pretibial lesion excellent w wound vacc in place Laboratory data: white blood cell count is further elevated at 10+ thousand today creat up to 1.8 today Objective: Vital Signs Temp Pulse Resp BP Pulse Ox 36.9 C 94 14 110/82 H 90 L 10/04/17 07:24 10/04/17 07:24 10/04/17 07:24 10/04/17 07:24 10/04/17 07:24 Microbiology 09/27/17 13:06 Gram Stain - Final Toe - Tissue Laboratory Results 10/04/17 04:40 10/04/17 04:40 10/03/17 10/04/17 10/05/17 06:59 06:59 06:59 Intake Total 2300 1450 Output Total 2025 900 450 Balance 275 550 -450 PT 19.2 SEC (12.0-15.0) H 09/26/17 16:15 INR 1.60 (0.83-1.16) H 09/26/17 16:15 - Time Spent With Patient Time Spent with Patient: greater than 35 minutes Time Spent with Patient: Greater than 35 minutes spent on this patients care, greater than 50% of time spent counseling, educating, and coordinating care regarding the above mentioned plan. ICD10 Worksheet Patient Problems: Problems Problem Status Onset Diabetes type 2, uncontrolled Acute MRSA (methicillin resistant Staphylococcus aureus) Acute 02/19/16 Osteomyelitis of toe of left foot Acute
[2017-10-04] MEDS: THYROID 15 MG TAB PO SCH (09:04)
[2017-10-04] MEDS ORDERED: POLYETHYLENE GLYCOL 3350 17 GM PKT PO PRN (14:17)
[2017-10-04] MEDS ORDERED: LACTULOSE 20 GM/30 ML UDCUP PO PRN (14:17)
[2017-10-04] MEDS ORDERED: BISACODYL 10 MG SUPP PR PRN (14:17)
[2017-10-04] MEDS ORDERED: MAGNESIUM HYDROXIDE 30 ML UDCUP PO PRN (14:17)
[2017-10-04] MEDS: SENNOSIDES/DOCUSATE SODIUM TAB PO SCH ×2 (15:45→21:48)
[2017-10-04] MEDS: RIVAROXABAN 20 MG TAB PO SCH (18:00)
--- NOTE | 2017-10-04 18:59 | PCMIDPN ---
Assessment/Plan: Assessment/Plan: * Right lower extremity osteomyelitis of 4th and 5th digits status post amputation: Await bone pathology to determine duration of therapy which will be at least 2 weeks of IV therapy post amputation but would necessitate 6 weeks if margins positive. Will discontinue vancomycin given elevated creatinine. Prior cultures show growth of ampicillin susceptible enterococcus faecalis. Will plan to begin Unasyn tomorrow as this will cover Enterococcus and mixed bharti. Currently his vancomycin level is likely to be therapeutic for at least another 24 hr. Will discontinue ceftriaxone given change to Unasyn. * Acute on chronic renal insufficiency: Will stop vancomycin based on increased creatinine. Continue to follow creatinine over time. Time spent, 25 min, of which greater than half was spent in education/counseling /coordination of care related to right lower extremity osteomyelitis and acute renal insufficiency. 10/04/17 18:56 10/04/17 19:01 Subjective: Patient without specific complaints. Eager for hospital discharge but understands currently needs remain in hospital with increasing creatinine. Objective: Vital Signs Temp Pulse Resp BP Pulse Ox 36.3 C 101 H 16 118/77 94 10/04/17 15:55 10/04/17 15:55 10/04/17 15:55 10/04/17 15:55 10/04/17 15:55 Microbiology 09/27/17 13:06 Gram Stain - Final Toe - Tissue Anaerobic Culture - Final Enterococcus Faecalis Laboratory Results 10/04/17 04:40 10/04/17 14:20 10/03/17 10/04/17 10/05/17 05:59 05:59 05:59 Intake Total 2300 1450 Output Total 2025 900 450 Balance 275 550 -450 C-Reactive Protein 54.3 mg/L (<10.0) H 09/28/17 07:30 Vancomycin # 8 Ceftriaxone # 3 Cultures with growth of ampicillin susceptible Enterococcus faecalis. Bone pathology pending Laboratory Tests 10/03/17 10/04/17 08:45 08:50 Vancomycin Trough 15.3 18.6 - Physical Exam General Appearance: alert, no apparent distress EENT: No scleral icterus Extremities: inflammation (Right foot amputation site with clean base; no residual cellulitis present; small bullous area present; wound VAC present over right anterior bean) ICD10 Worksheet Patient Problems: Problems Problem Status Onset Diabetes type 2, uncontrolled Acute MRSA (methicillin resistant Staphylococcus aureus) Acute 02/19/16 Osteomyelitis of toe of left foot Acute
[2017-10-04] MEDS: INSULIN GLARGINE 100 UNITS/ML UNIT SC SCH (21:47)
[2017-10-04] MEDS: LOSARTAN POTASSIUM 25 MG TAB PO SCH (21:47)
[2017-10-04] MEDS: LATANOPROST 0.005% 2.5 ML OPHT DROPS EACHEYE SCH (21:47)
[2017-10-05] MEDS: INSULIN LISPRO 100 UNIT/ML SC SCH ×3 (07:28→17:43)
[2017-10-05] MEDS: DILTIAZEM CD 120 MG CAP PO SCH (08:59)
[2017-10-05] MEDS: SENNOSIDES/DOCUSATE SODIUM TAB PO SCH ×2 (09:00→22:15)
[2017-10-05] MEDS: THYROID 15 MG TAB PO SCH (09:00)
[2017-10-05] MEDS: CHOLECALCIFEROL VIT D3 1,000 UNITS TAB PO SCH (09:00)
[2017-10-05] MEDS: FERROUS SULFATE 325 MG TAB PO SCH (09:00)
[2017-10-05] MEDS ORDERED: AMPICILLIN/SULBACTAM 3 GM in NS 100 ML IV SCH (14:30)
--- NOTE | 2017-10-05 14:47 | PDIAF ---
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, 5th Toe Code Status: Full Code - Medication Management Discharge Medications: Medications to Continue on Transfer Cholecalciferol (Vitamin D3) [Vitamin D3] 5,000 unit PO DAILY 02/19/16 [Last Taken 09/25/17] Diltiazem Cd [Cardizem ER 120 MG (*)] 120 mg PO DAILY #30 cap 03/15/16 [Last Taken 09/26/17] Latanoprost 0.005% [Xalatan 0.005% (*)] 1 drops EACHEYE HS #1 opht.btl 03/15/16 [Last Taken 09/25/17] Rivaroxaban [Xarelto] 20 mg PO DAILY18 #30 tab 03/15/16 [Last Taken 09/25/17] Insulin Lispro [humALOG LISPRO 100 units/ml (*)] 8 unit SC TIDMEAL PRN 04/06/17 [Last Taken 09/25/17 21:00] Thyroid,Pork [ARMOUR THYROID] 15 mg PO HS 04/06/17 [Last Taken 09/25/17] Anastrozole [Arimidex 1 mg (*)] 1 mg PO BOOKER 09/26/17 [Last Taken 09/23/17] Ferrous Sulfate [Ferrous Sulf 325 MG (*)] 325 mg PO DAILY 09/26/17 [Last Taken 09/21/17] Herbals/Supplements -Info Only 1 ea PO DAILY 09/26/17 [Last Taken 3 Days Ago ~] Losartan Potassium [Cozaar 25 mg (*)] 25 mg PO HS 09/26/17 [Last Taken 09/25/17] Insulin Glargine/Lixisenatide [Soliqua 100 Unit-33 Mcg/ml Pen] 20 units SQ HS [Last Taken Unknown] Special Agent In Charge Antibiotics: unasyn 3gm IV q8h Detention Antibiotic Stop Date: 11/08/17 Discharge Medications: Refer to the Discharge Home Medication list for PRN reason. PICC Care - Routine: Yes - Orders Services needed: Home Care, Registered Nurse Home Care Face to Face: I certify that this patient was under my care and that I had the required [id number] encounter meeting the encounter requirements on the discharge day. My findings support the fact that the patient is homebound as defined in Home Care Face to Face Continued: [facility] Chapter 7 Medicare Benefits Manual 30.1.1 , The condition of the patient is such that there exists a normal inability to leave home and consequently, leaving home would require a considerable and taxing effort. Isolation Type: None - Labs/Radiology CBC w/diff Date: 10/08/17 (weekly sunday) CMP Date: 10/08/17 (weekly sunday) Call or Fax Lab and Imaging Results to: Dr. Cristhian Bermudez [phone] - Follow Up Care Current Providers and Referrals: NILSON DIEGO [Primary Care Provider] - Dasha Sweet MD [Medical Doctor] - 10/10/17 11:30 am Cristhian Bermudez MD [Medical Doctor] - 10/09/17 9:00 am
--- NOTE | 2017-10-05 15:16 | PCMIDPN ---
Assessment/Plan: # OM/gangrene 4th, 5th toe s/p amputation 4th 5th toe and met head and excisional debridement leg 5x2.5x1 for hematoma. Incision R foot with some mild pinkness but not cellulitic. Increasing Cr on Vancomycin therefore plan to transition to IV Unasyn. Some inflammation present on margin of biopsy therefore will plan to treat 6 weeks. --start Unasyn 3gm IV q8h based on renal function, stop date 11/08/17 --care coordination for dc tomorrow, discussed with case management, , patient. 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 path as above Subjective: patient anxious to go home no pain Objective: Vital Signs Temp Pulse Resp BP Pulse Ox 37.0 C 66 20 146/78 H 89 L 10/05/17 07:23 10/05/17 08:59 10/05/17 07:23 10/05/17 08:59 10/05/17 07:23 Microbiology 09/27/17 13:06 Gram Stain - Final Toe - Tissue Anaerobic Culture - Final Enterococcus Faecalis Laboratory Results 10/04/17 04:40 10/05/17 10:45 10/04/17 10/05/17 10/06/17 05:59 05:59 05:59 Intake Total 1450 500 550 Output Total 900 450 325 Balance 550 50 225 C-Reactive Protein 54.3 mg/L (<10.0) H 09/28/17 07:30 - Physical Exam General Appearance: alert, no apparent distress Extremities: inflammation (incision R foot over 4th 5th toe, no cellulitis, no purulence, no fluctuance. No cellulitis) Skin: No rash Neuro/Psych: alert, normal mood/affect, oriented x 3 - Time Spent With Patient Time Spent with Patient: greater than 35 minutes (care coordination for IV antibiotics, renal function, plans for 6 weeks of therapy path results, discussed w patient and separately) Time Spent with Patient: Greater than 35 minutes spent on this patients care, greater than 50% of time spent counseling, educating, and coordinating care regarding the above mentioned plan. ICD10 Worksheet Patient Problems: Problems Problem Status Onset Diabetes type 2, uncontrolled Acute MRSA (methicillin resistant Staphylococcus aureus) Acute 02/19/16 Osteomyelitis of toe of left foot Acute
[2017-10-05] MEDS: AMPICILLIN/SULBACTAM 3 GM in STERILE WATER INJ 8 ML IV SCH ×2 (15:33→22:59)
--- NOTE | 2017-10-05 15:38 | ASMTCMCOM ---
CM Note CM Note Notes: Spoke w/pt, and MD re; dc poc. Pt will dc home w/home infusion and homecare on Sunday. Wound Vac is ready to be delivered. Shyanne at [facility] and Adilene at [facility] notified DC Plan: Home w/[facility] and [facility] (RN) Date Signed: 10/05/2017 03:38 PM Electronically Signed By:Anna Miller RN
--- NOTE | 2017-10-05 16:04 | ASMTLACE ---
LACE Length of stay for Answers: 14 days or more current admission Acuity / Level of Answers: Yes Care: Did the patient have an inpatient admission? Comorbidities - select Answers: Diabetes (uncontrolled or all that apply controlled) Peripheral vascular disease Other # of Emergency department Answers: 0 visits in the last 6 months Score: 13 Date Signed: 10/05/2017 04:04 PM Electronically Signed By:Anna Miller RN
[2017-10-05] MEDS: RIVAROXABAN 20 MG TAB PO SCH (17:43)
--- NOTE | 2017-10-05 19:06 | HOSPPROG ---
Hospitalist Progress Note Assessment/Plan: DIAGNOSES: -diabetic foot infection, status post amputation of 4th and 5th toes and metatarsal heads (Enterococcus faecalis in cultures) -new onset cellulitis and edema of the foot 10/01 by clinical examination; antibiotics broadened, -cellulitis continues to improve since that time -acute on chronic kidney disease; new significant worsening 10/04 likely due to increased Vanco levels -Vanco has been DC that and change to Unasyn -renal function slowly improving after that -suspected hypothyroidism (new problem identified today) -his TSH measure here is at 14.9, suspect this is real but would recheck once his infection is better controlled to be sure there is not any influence of his illness on the TSH -new onset of cough without shortness of breath -clear lung exam and no hypoxemia or change in vitals, will watch carefully, this could be related to his IV fluids, ? If any relation to his low-grade temperature today -mesenteric mass with enlarged inguinal lymph nodes -plans for outpatient needle biopsy of lymph node -chronic atrial fibrillation, currently stable -diabetes mellitus type 2 -diabetes numbers look better today but have been running high, it require ongoing close following and may need further adjustments and management -the patient is taking anastrozole weekly at home, but he does not really remember why his taking that. It has been prescribed by Rudy Jordan MD DISPOSITION: If the patient continues to have improvement in cellulitis and renal function, likely home October 06 or with ongoing antibiotics and wound VAC PLANS: -continue current leg wound care, with wound VAC now for weekly change out -continue current ft wound care -no further diuretic; as his edema is really quite chronic and stable will not try and treat that further at this time given his renal issues -continue current care for atrial fibrillation -wound VAC is all set up for discharge for his calf wound once he goes home; he has also been fitted for a boot for his foot, if there are any other procedures for his foot this may need to be adjusted -plans for needle biopsy of lymph node related to his mesenteric mass as an outpatient in clinic -would recheck his TSH once his infection is clearly settle down, probably in 2- 3 weeks, may need to start on replacement therapy and may need other diagnostic assessments SUBJECTIVE: Feels well and is hoping to go home soon, no pain no fever symptoms OBJECTIVE Vitals reviewed: T-max 37.5 degrees overnight, Some mild hypertension otherwise stable Authorization Coordinator, my review: Sinus rhythm Exam: alert oriented skin warm dry color ok resps not labored lungs clear BSs heart regular abd soft nondistended nontender, bowel sounds present Limbs - right foot with nearly complete resolution of redness and warmth but with formation of a small blister distal lateral dorsum of foot, foot edema unchanged, pretibial lesion excellent w wound vacc in place Laboratory data: Vanco level continues to decrease down to 9 today off of vancomycin creat down to 1.6 Objective: Vital Signs Temp Pulse Resp BP Pulse Ox 36.7 C 63 12 146/78 H 94 10/05/17 15:24 10/05/17 15:24 10/05/17 15:24 10/05/17 15:24 10/05/17 15:24 Microbiology 09/27/17 13:06 Gram Stain - Final Toe - Tissue Anaerobic Culture - Final Enterococcus Faecalis Laboratory Results 10/04/17 04:40 10/05/17 10:45 10/04/17 10/05/17 10/06/17 06:59 06:59 06:59 Intake Total 1450 500 550 Output Total 900 450 325 Balance 550 50 225 PT 19.2 SEC (12.0-15.0) H 09/26/17 16:15 INR 1.60 (0.83-1.16) H 09/26/17 16:15 ICD10 Worksheet Patient Problems: Problems Problem Status Onset Diabetes type 2, uncontrolled Acute MRSA (methicillin resistant Staphylococcus aureus) Acute 02/19/16 Osteomyelitis of toe of left foot Acute
--- NOTE | 2017-10-05 21:07 | SOAPPROG ---
SOAP Progress Note Assessment/Plan: Assessment/Plan: 57 yo male s/p amputation of right 4th and 5th toe including metatarsal head and incisional debridement of hematoma on right anterior lower leg Amputation site significantly decreased erythema and edema, some blistering present from the edema. Continue abx per ID Wound vac - change wound vac in my office on Sun at 11:30 am CTA of abdomen with R leg runoff - 2 vessel runnoff. Has mesenteric mass and inguinal lymphadenopathy. Plan on excisional biopsy r inguinal node as outpatient. If results negative then laparoscopy for biopsy of mesenteric mass. Discharge: cleared to D/C from a surgical standpoint S: He is feeling very well today. Pain controlled. Very eager to go home O: General: The patient is sitting in the chair Right LE: Wound vac in place with Amniofill at base. Minimal serosanguinous fluid in vac. Mild erythema over dorsum of foot has significantly decreased, decreased edema as well, blisters improved 10/04/17 08:14 10/05/17 21:05 Objective: Vital Signs Temp Pulse Resp BP Pulse Ox 36.7 C 63 12 146/78 H 94 10/05/17 15:24 10/05/17 15:24 10/05/17 15:24 10/05/17 15:24 10/05/17 15:24 Laboratory Results 10/04/17 04:40 10/05/17 10:45 10/04/17 10/05/17 10/06/17 05:59 05:59 05:59 Intake Total 1450 500 550 Output Total 900 450 325 Balance 550 50 225 PT 19.2 SEC (12.0-15.0) H 09/26/17 16:15 INR 1.60 (0.83-1.16) H 09/26/17 16:15 ICD10 Worksheet Patient Problems: Problems Problem Status Onset Diabetes type 2, uncontrolled Acute MRSA (methicillin resistant Staphylococcus aureus) Acute 02/19/16 Osteomyelitis of toe of left foot Acute
[2017-10-05 22:13] VITALS: PULSE 65
[2017-10-05] MEDS: LOSARTAN POTASSIUM 25 MG TAB PO SCH (22:15)
[2017-10-05] MEDS: INSULIN GLARGINE 100 UNITS/ML UNIT SC SCH (22:15)
[2017-10-05] MEDS: LATANOPROST 0.005% 2.5 ML OPHT DROPS EACHEYE SCH (22:17)
[2017-10-06] MEDS: AMPICILLIN/SULBACTAM 3 GM in STERILE WATER INJ 8 ML IV SCH (06:06)
[2017-10-06 08:24] VITALS: BP 143/77; RESP 18; TEMP 97.8; O2SAT 91
[2017-10-06] MEDS: INSULIN LISPRO 100 UNIT/ML SC SCH (08:32)
[2017-10-06] MEDS: FERROUS SULFATE 325 MG TAB PO SCH (09:25)
[2017-10-06] MEDS: DILTIAZEM CD 120 MG CAP PO SCH (09:25)
[2017-10-06] MEDS: CHOLECALCIFEROL VIT D3 1,000 UNITS TAB PO SCH (09:25)
[2017-10-06] MEDS: SENNOSIDES/DOCUSATE SODIUM TAB PO SCH (09:26)
[2017-10-06] MEDS: THYROID 15 MG TAB PO SCH (09:26)
--- NOTE | 2017-10-06 09:26 | PDIAF ---
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, 5th Toe Code Status: Full Code - Medication Management Discharge Medications: Medications to Continue on Transfer Cholecalciferol (Vitamin D3) [Vitamin D3] 5,000 unit PO DAILY 02/19/16 [Last Taken 09/25/17] Diltiazem Cd [Cardizem ER 120 MG (*)] 120 mg PO DAILY #30 cap 03/15/16 [Last Taken 09/26/17] Latanoprost 0.005% [Xalatan 0.005% (*)] 1 drops EACHEYE HS #1 opht.btl 03/15/16 [Last Taken 09/25/17] Rivaroxaban [Xarelto] 20 mg PO DAILY18 #30 tab 03/15/16 [Last Taken 09/25/17] Insulin Lispro [humALOG LISPRO 100 units/ml (*)] 8 unit SC TIDMEAL PRN 04/06/17 [Last Taken 09/25/17 21:00] Thyroid,Pork [ARMOUR THYROID] 15 mg PO HS 04/06/17 [Last Taken 09/25/17] Anastrozole [Arimidex 1 mg (*)] 1 mg PO BOOKER 09/26/17 [Last Taken 09/23/17] Ferrous Sulfate [Ferrous Sulf 325 MG (*)] 325 mg PO DAILY 09/26/17 [Last Taken 09/21/17] Herbals/Supplements -Info Only 1 ea PO DAILY 09/26/17 [Last Taken 3 Days Ago ~] Losartan Potassium [Cozaar 25 mg (*)] 25 mg PO HS 09/26/17 [Last Taken 09/25/17] Insulin Glargine/Lixisenatide [Soliqua 100 Unit-33 Mcg/ml Pen] 20 units SQ HS [Last Taken Unknown] Acetaminophen [Tylenol 325mg (*)] 650 mg PO Q4HRS PRN tab 10/06/17 [Last Taken Unknown] Ampicillin/Sulbactam [Unasyn] 3 gm IV Q8H #0 vial 10/06/17 [Last Taken Unknown] Polyethylene Glycol 3350 [Miralax 17 gm (*)] 17 gm PO DAILY PRN pkt 10/06/17 [ Last Taken Unknown] Sennosides/Docusate Sodium [Senokot-S] 1 - 2 tab PO BID tab 10/06/17 [Last Taken Unknown] Red Cap Antibiotics: unasyn 3gm IV q8h Red Cap Antibiotic Stop Date: 11/08/17 Discharge Medications: Refer to the Discharge Home Medication list for PRN reason. PICC Care - Routine: Yes - Orders Services needed: Home Care, Registered Nurse Home Care Face to Face: I certify that this patient was under my care and that I had the required ejdf-jp-[id number] encounter meeting the encounter requirements on the discharge day. My findings support the fact that the patient is homebound as defined in Home Care Face to Face Continued: CMS Chapter 7 Medicare Benefits Manual 30.1.1 , The condition of the patient is such that there exists a normal inability to leave home and consequently, leaving home would require a considerable and taxing effort. Isolation Type: None Diet Recommendation: no restrictions on diet - Labs/Radiology CBC w/diff Date: 10/08/17 (weekly sunday) CMP Date: 10/08/17 (weekly sunday) Call or Fax Lab and Imaging Results to: Dr. Cristhian Bermudez [phone] - Follow Up Care Current Providers and Referrals: NILSON DIEGO [Primary Care Provider] - Dasha Sweet MD [Medical Doctor] - 10/10/17 11:30 am Cristhian Bermudez MD [Medical Doctor] - 10/09/17 9:00 am
--- NOTE | 2017-10-06 09:33 | PCMIDPN ---
Assessment/Plan: # OM/gangrene 4th, 5th toe s/p amputation 4th 5th toe and met head and excisional debridement leg 5x2.5x1 for hematoma. Incision R foot with some mild pinkness but not cellulitic - stable today. Some inflammation present on margin of bone biopsy therefore will plan to treat 6 weeks. 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 path : islands of inflammation on biopsy margin Subjective: feeling well wants to go home Objective: Vital Signs Temp Pulse Resp BP Pulse Ox 36.6 C 65 18 143/77 H 91 L 10/06/17 08:00 10/06/17 09:25 10/06/17 08:00 10/06/17 09:25 10/06/17 08:00 Laboratory Results 10/04/17 04:40 10/06/17 06:15 10/05/17 10/06/17 10/07/17 05:59 05:59 05:59 Intake Total 500 1350 Output Total 450 1375 Balance 50 -25 C-Reactive Protein 54.3 mg/L (<10.0) H 09/28/17 07:30 General Appearance: alert, no apparent distress Extremities: inflammation adjacent to incision R foot over 4th 5th toe, no cellulitis, no purulence, no fluctuance. No cellulitis Skin: No rash Neuro/Psych: alert, normal mood/affect, oriented x 3 - Time Spent With Patient Time Spent with Patient: greater than 25 minutes Time Spent with Patient: Greater than 25 minutes spent on this patients care, greater than 50% of time spent counseling, educating, and coordinating care regarding the above mentioned plan. ICD10 Worksheet Patient Problems: Problems Problem Status Onset Diabetes type 2, uncontrolled Acute MRSA (methicillin resistant Staphylococcus aureus) Acute 02/19/16 Osteomyelitis of toe of left foot Acute
--- NOTE | 2017-10-06 12:24 | GDS ---
[f rep st] DISCHARGE SUMMARY DISCHARGE DIAGNOSES: 1. Osteomyelitis. 2. Gangrene of the 4th and 5th toes. 3. Renal insufficiency. 4. Jwleg-ty-uipzzaj kidney disease. 5. Diabetic foot infection. 6. Suspected hypothyroidism. 7. 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 8. Chronic atrial fibrillation. 9. Diabetes mellitus, type 2. CONSULTATIONS: 1. Infectious Disease. 2. General Surgery. PHYSICAL EXAM: GENERAL: Alert. VITAL SIGNS: Afebrile at 36.6, pulse is 65, respiratory rate is 18 , blood pressure is 143/77. He is saturating 91% on 2 L. I have seen and evaluated the patient on the day of discharge. HOSPITAL COURSE: The patient is a 57-year-old male who presents with complaints of foot infection. He was evaluated and diagnosed with: 1. Diabetic foot infection: During this hospitalization, he received a consultation from Infectious Disease as well as Surgery, and amputation of his 4th and 5th toes and metatarsal heads was performe d during this hospital course secondary to osteomyelitis. He will continue on IV antibiotic therapy, as well as a wound VAC in the outpatient setting. 2. Tydom-df-zsqjgvz kidney disease: Likely elevated secondary to vancomycin dosing. This has been changed to Unasyn. His kidney function has returned to baseline. 3. Hypothyroidism: This is a new diagnosis during this hospitalization. The patient's TSH is 14.9. He has been initiated on [place] thyroid during this hospital course, and will follow with his primar care provider. 4. Mesenteric mass with enlarged inguinal lymph nodes: He has a plan to have a biopsy in the outpat ient setting. 5. Chronic atrial fibrillation: This is stable. 6. Diabetes mellitus, type 2: This requires continued aggressive therapy. He will manage this in t outpatient setting. DISPOSITION: The patient will be discharged home with IV antibiotics and home health care as well as wound VAC. This has been arranged by Case Management. I reviewed the patient's disposition with In fectious Disease, Dr. Rachel Florentino, who is in agreement with this plan. There are no pending studies. Followup will be with Dr. Bermudez on 10/09/2017, as well as Dr. Sweet on 10/10/2017, and the patient's primary care physician. DISCHARGE MEDICATIONS: Please refer to EMR form. I spent greater than 35 minutes in the care, coordination, and management of this patient's dispositi on. /[id number]/MODL
--- NOTE | 2017-10-06 14:12 | ASDISCHSUM ---
Discharge Information Plan Status:Home with Home Health Medically Cleared to Leave: Discharge Date:10/06/2017 10:49 AM CM D/C Disposition:Home Health Service ADT D/C Disposition:Home Health Service Projected Discharge Date:10/06/2017 11:00 AM Transportation at D/C:Family Discharge Delay Reason: Follow-Up Date:10/06/2017 11:00 AM Discharge Slot: Final Diagnosis: Placement Information Referral Type:Home Infusion Referral ID:[id number] Provider Name:[facility] [place] [facility] Address 1:[address] Address 2: City:[place] Selection Factors: State:[place] Referral Type:*Home Health Care Services Referral ID:[id number] Provider Name:[facility] Address 1:[address] , [address] Address 2: City:[place] Selection Factors: State:[place] Patient Contact Information Contact Name:EPHRAIM Relationship: Address:[address] City:[place] Alternate Phone: State/Zip Code:[place] [address] Email: Financial Information Financial Class:HMO and PPO Plans Primary Plan Desc:[facility] Primary Plan Number:[id number] Secondary Plan Desc: Secondary Plan Number: Assessment Information [facility] Initial CM Assessment Living Arrangements What is your living Answers: With Spouse arrangement? Who do you live with? Type Of Residence What kind of residence do Answers: House you live in? Discharge Plan Comments Coordination Status Comments Notes: Pt is a 57 y/o man admitted for a right fifth toe infection. PT has been ordered and awaiting recommendations. Pt will most likely d/c independent when medically stable. CM available for d/c needs. Plan: Independent Date Signed: 09/27/2017 10:26 AM Electronically Signed By:POOJA Sevilla [facility] JOHN Progress Note CM Note CM Note Notes: Discussed pts case in morning rounds. Pt will require a snap vac according to surgery. Pt will be on ivabx. CM met w/ pt and family for dispo planning. Pt reported having [facility] and [facility] in the past. would like to do the learning. Referral made to [facility] and [facility]. Both facilities are able to accept. JOHN notified Shyanne at [facility] that is requesting to learn how to admin meds. Paper work tubed to La [place] and she will fill out [facility] paperwork for wound vac. CM will need to fax completed paperwork in chart to [facility]. CM to follow. Plan: GARCIA, RN with [facility] to supply meds and [facility] for wound vac Date Signed: 09/28/2017 04:28 PM Electronically Signed By:POOJA Sevilla [facility] Progress Note CM Note CM Note Notes: 09/28/2017 Case Management Note Completed [employer] wound vac application. Notified Brianne at [facility] [phone] of note 09/28 indicating need for snap vac. [facility] rep Davis will reach out to Dr. Sweet for more information. Per Brianne pts do not leave the hospital with snap Vacs but she was going to confirm with Ryan. Prescription for I wound vac that needs signature is on front of chart. Dr. Sweet will need to sign and give to case management. Pt insurance company is requesting addtional info, per Brianne, all other paperwork that is needed has been faxed to Dr. Sweet's office by Ryan her coworker. Case Management will fax signed prescription to [facility] to complete order so vac can be released to pt tomorrow if Ryan is unable to reach Dr. Sweet's office today. RN aware. Case Management SW aware. Per Case Management [facility] is home care agency for RN cares. [facility] fax number . # [phone]. Case Management to complete process tomorrow after prescription is signed. Date Signed: 09/28/2017 03:54 PM Electronically Signed By:Caty Salamanca RN BC CM Progress Note CM Note CM Note Notes: Pt may be ready for DCX tomorrow. Pt's wound vac has been approved. Tanika from [facility] ([phone]) stated that the serial # will be on pt's home order in their system. Pt will also have [employer] for IV ABX and [facility]. Date Signed: 09/30/2017 04:20 PM Electronically Signed By:Cherelle Puentes LCSW [facility] CM Progress Note CM Note CM Note Notes: Pt will return to [place] when ready. Plan is to DC on oral doxy. Date Signed: 09/30/2017 04:22 PM Electronically Signed By:Cherelle Puentes LCSW BC CM Progress Note CM Note CM Note Notes: Pt is not ready for discharge due to his foot being redder and more swollen - surgery and ID are following. [facility] wound vac paperwork is in front of pt's chart. Please contact Brianne at [facility] [phone] when pt is ready for d/c. Wound vac is in CM office - be sure to match the serial # with the wound vac that is provided to pt. [facility], [facility] and [facility] notified. Date Signed: 10/01/2017 02:16 PM Electronically Signed By:KAREN Ruvalcaba BC CM Progress Note CM Note CM Note Notes: 10/02/2017 Case Management Note Discussed pt in rounds with . Pt was sleeping. Case Management faxed updates to [employer] and [facility]. Wound Vac application is completed for d/c. Case Management d/c poc: [facility] with [employer] for IV antibiotic needs. Case Management to follow. Date Signed: 10/02/2017 02:48 PM Electronically Signed By:Caty Salamanca RN BC CM Progress Note CM Note CM Note Notes: Spoke w/pt, and re; dc poc. Pt will dc home w/home infusion and homecare on Sunday. Wound Vac is ready to be delivered. Shyanne at [facility] and Adilene at [facility] notified DC Plan: Home w/eri and [facility] (RN) Date Signed: 10/05/2017 03:38 PM Electronically Signed By:Anna Miller RN LACE LACE Length of stay for Answers: 14 days or more current admission Acuity / Level of Answers: Yes Care: Did the patient have an inpatient admission? Comorbidities - select Answers: Diabetes (uncontrolled or all that apply controlled) Peripheral vascular disease Other # of Emergency department Answers: 0 visits in the last 6 months Score: 13 Date Signed: 10/05/2017 04:04 PM Electronically Signed By:Anna Miller RN Intervention Information
== END 2017-10-06 10:49 | disposition home health service (06) | DRG 617 ==
LOC: F2W 14:41 → F3E 10-03 22:24
PROVIDERS: ADMIT Family Medicine; ATTEND Internal Medicine
PROC: 2W1QX6Z Compression of Right Lower Leg using Pressure Dressing (ICD-10-PCS; principal; 2017-09-27 12:45)
PROC: 0J9N0ZZ Drainage of Right Lower Leg Subcutaneous Tissue and Fascia, Open Approach (ICD-10-PCS; principal; 2017-09-27 12:45)
PROC: 0Y6X0Z0 Detachment at Right 5th Toe, Complete, Open Approach (ICD-10-PCS; principal; 2017-09-27 12:45)
PROC: 0Y6V0Z0 Detachment at Right 4th Toe, Complete, Open Approach (ICD-10-PCS; principal; 2017-09-27 12:45)
PROC: 02HV33Z Insertion of Infusion Device into Superior Vena Cava, Percutaneous Approach (ICD-10-PCS; 2017-09-28)
DX: E11.621 Type 2 diabetes mellitus with foot ulcer (principal); E11.52 Type 2 diabetes mellitus with diabetic peripheral angiopathy with gangrene; L97.514 Non-pressure chronic ulcer of other part of right foot with necrosis of bone; M90.871 Osteopathy in diseases classified elsewhere, right ankle and foot; E11.40 Type 2 diabetes mellitus with diabetic neuropathy, unspecified; E11.39 Type 2 diabetes mellitus with other diabetic ophthalmic complication; L03.115 Cellulitis of right lower limb; I48.0 Paroxysmal atrial fibrillation; Z89.512 Acquired absence of left leg below knee; E03.9 Hypothyroidism, unspecified; I73.9 Peripheral vascular disease, unspecified; I12.9 Hypertensive chronic kidney disease with stage 1 through stage 4 chronic kidney disease, or unspecified chronic kidney disease; R13.10 Dysphagia, unspecified; I88.0 Nonspecific mesenteric lymphadenitis; B95.2 Enterococcus as the cause of diseases classified elsewhere; N18.9 Chronic kidney disease, unspecified; N17.9 Acute kidney failure, unspecified; K21.9 Gastro-esophageal reflux disease without esophagitis; R05 Cough; H40.9 Unspecified glaucoma; Z79.01 Long term (current) use of anticoagulants; Z79.4 Long term (current) use of insulin; Z86.14 Personal history of Methicillin resistant Staphylococcus aureus infection
CPT/HCPCS: 97116-GP; 97161-GP; C1751; J0295; J0696; J1815; J1940; J2250; J2405; J2704; J2997; J3010; J3370; Q9967

== ENCOUNTER 2017-10-16 05:41 | Day surgery (SDC) | payer OTHER ==
[2017-10-16] MEDS ORDERED: AMPICILLIN/SULBACTAM 3 GM in NS 100 ML IV ONE (06:00)
[2017-10-16] MEDS ORDERED: AMPICILLIN/SULBACTAM 3 GM in STERILE WATER INJ 8 ML IV ONE (06:00)
[2017-10-16] MEDS ORDERED: LR 1,000 ML IV ONE (06:09)
[2017-10-16 06:29] VITALS: PULSE 104
--- NOTE | 2017-10-16 06:58 | PDANEPAE ---
ANE History of Present Illness Groin mass ANE Past Medical History - Cardiovascular History Hx Hypertension: Yes Hx Arrhythmias: Yes Hx Chest Pain: No Hx Coronary Artery / Peripheral Vascular Disease: No Hx CHF / Valvular Disease: No Hx Palpitations: No Cardiovascular History Comment: afib. htn. pt see[facility] - Pulmonary History Hx COPD: No Hx Asthma/Reactive Airway Disease: No Hx Recent Upper Respiratory Infection: No Hx Oxygen in Use at Home: No Hx Sleep Apnea: No Sleep Apnea Screening Result - Last Documented: Positive Pulmonary History Comment: sonya triggers. walking pna 09/2017. has been told he has decreased lung capacity - Neurologic History Hx Cerebrovascular Accident: No Hx Seizures: No Hx Dementia: No Neurologic History Comment: neuropathy - Endocrine History Hx Diabetes: Yes Endocrine History Comment: type 2 - Renal History Hx Renal Disorders: Yes Renal History Comment: hx of kidney stones. renal insuff - Liver History Hx Hepatic Disorders: No - Neurological & Psychiatric Hx Hx Neurological and Psychiatric Disorders: No - Cancer History Hx Cancer: No - GI History Hx Gastrointestinal Disorders: No - Other Health History Other Health History: hx of recent gangrene to right 4th and 5th toes. wears glasses. [place] picc in place - Chronic Pain History Chronic Pain: No - Surgical History Prior Surgeries: 09/27/17 right 4th and 5th toes amputated with Kee. left bka with Kee. 02/20/16 left foot i&d with Beto. L toe amputation 2014. Arthroscope repair both ankles 2001 ANE Review of Systems Review of Systems: - Exercise capacity METS (RN): 3 METS ANE Patient History - Allergies Allergies/Adverse Reactions: ciprofloxacin Allergy (Unverified 10/15/17 13:31) personality changes ciprofloxacin HCl [From Cipro] Allergy (Verified 10/15/17 13:31) personality changes linezolid [From Zyvox] Allergy (Verified 10/15/17 13:31) suicidal and hallucinagenic - Home Medications Home Medications: Insulin Lispro [humALOG LISPRO 100 units/ml (*)] 8 unit SC TIDMEAL PRN 04/06/17 [Last Taken 10/14/17 12:00] Losartan Potassium [Cozaar 25 mg (*)] 25 mg PO HS 09/26/17 [Last Taken 10/15/17 19:00] Insulin Glargine/Lixisenatide [Soliqua 100 Unit-33 Mcg/ml Pen] 09/28/17 [Last Taken 10/15/17 21:00 20 units] Unasyn IVP TID 10/15/17 [Last Taken 10/15/17 23:45] - NPO status NPO Since - Liquids (Date): 10/15/17 NPO Since - Liquids (Time): 23:40 NPO Since - Solids (Date): 10/15/17 NPO Since - Solids (Time): 19:00 - Anes Hx Anes Hx: no prior problems - Smoking Hx Smoking Status: Never smoked - Family Anes Hx Family Hx Anesthesia Complications: none ANE Labs/Vital Signs - Vital Signs Blood Pressure: 121/79 Heart Rate: 104 Respiratory Rate: 16 O2 Sat (%): 89 Height: 162.56 cm Weight: 106.3 kg ANE Physical Exam - Airway Neck exam: FROM Mallampati Score: Class 2 Mouth exam: normal dental/mouth exam - Pulmonary Pulmonary: no respiratory distress - Cardiovascular Cardiovascular: irregularly irregular - ASA Status ASA Status: III ANE Anesthesia Plan Anesthesia Plan: MAC (with GA as backup)
--- NOTE | 2017-10-16 07:00 | PDHPUP ---
History & Physical Update H&P update statement: This history and physical update is based on an assessment of the patient which was completed after admission or registration (within 24 hours), but prior to the surgery/procedure. H&P update: H&P reviewed & patient examined H&P changes: had reaction? to Unasyn on sunday and Sunday but no issues on Sunday or Sunday. Discussed with ID and Anesthesia
[2017-10-16] MEDS ORDERED: BUPIVACAINE/EPI 0.5% 30 ML SDV ONE (07:02)
[2017-10-16] MEDS ORDERED: PROPOFOL/EMULSION 500 MG/50 ML BOTTLE IV ONE (07:07)
[2017-10-16] MEDS ORDERED: fentaNYL 100 MCG/2 ML INJ ONE (07:08)
[2017-10-16] MEDS ORDERED: MIDAZOLAM 2 MG/2 ML VIAL IVP ONE (07:08)
[2017-10-16] MEDS ORDERED: MIDAZOLAM 2 MG/2 ML VIAL ONE (07:11)
[2017-10-16] MEDS ORDERED: LIDOCAINE 2% 5 ML SDV ONE (07:20)
[2017-10-16] MEDS ORDERED: NALOXONE HCL 0.4 MG/ML INJ IVP PRN (07:40)
[2017-10-16] MEDS ORDERED: ONDANSETRON 4 MG/2 ML VIAL IVP PRN (07:40)
[2017-10-16] MEDS ORDERED: fentaNYL 100 MCG/2 ML INJ IVP PRN (07:40)
[2017-10-16] MEDS ORDERED: LIDOCAINE 1% 300 MG/30 ML SDV ONE (07:48)
--- NOTE | 2017-10-16 08:11 | POSTOPPROG ---
Post Op Note Date of Operation: 10/16/17 Surgeon: Dasha Sweet Truck Driver Heavy: jermaine Anesthesiologist: yoshi Anesthesia: IV Sedation Pre-op Diagnosis: lymphadenopathy Post-op Diagnosis: same Indication: 57 yo with lymphadenopathy Procedure: excise R groin node Findings: enlarged lymph node Inf/Abcess present in the surg proc area at time of surgery?: No Depth: Superfical (Skin SQ) EBL: Minimal Specimen(s): lymph node
--- NOTE | 2017-10-16 08:32 | POSTANESTH ---
Post Anesthetic Evaluation Cardiovascular Status: Similar to Pre-Op Cond Respiratory Status: Similar to Pre-op Cond. Level of Consciousness/Mental Status: Can Participate in Eval Pain Control: Adequate, Prn Tx Ordered Nausea/Vomiting Control: Adequate, Prn Tx Ordered Complications Possibly Related to Anesthesia: None Noted
--- NOTE | 2017-10-16 08:42 | GOP ---
[f rep st] OPERATIVE REPORT DATE OF OPERATION: 10/16/2017 SURGEON: Dasha Sweet MD DINKEY ENGINEER: La Boyd, KARTHIKEYAN. ANESTHESIA: Monitored anesthesia care with IV sedation. ANESTHESIOLOGIST: Jeovany Joseph MD PREOPERATIVE DIAGNOSIS: Lymphadenopathy. POSTOPERATIVE DIAGNOSIS: Lymphadenopathy. PROCEDURE PERFORMED: Right deep inguinal lymph node biopsy. FINDINGS: Enlarged lymph node. SPECIMENS: Lymph node for pathology and microbiology. ESTIMATED BLOOD LOSS: 5 cc. INDICATIONS: The patient is a 57-year-old man who I recently performed amputation of his right 4th and 5th toes and metatarsal heads. I performed a CT -A with runoff and a large mesenteric mass was found. I palpated his lymph node basins and he had lymphadenopathy in his groin. Will proceed with lymph node biopsy. DESCRIPTION OF PROCEDURE: The patient was brought into the operating room, placed supine on the table, and monitored anesthesia care with IV sedation was performed. His right groin was prepped and draped in the usual sterile fashion. I infiltrated the area with 1% lidocaine prior to making incisions. I identified a lymph node, which was lateral to his femoral vessels. I dissected down through the skin and subcutaneous tissues and divided the superficial fascia. I continued my dissection until I encountered the large lymph node. I clipped a small tributary of the vein. I was able to dissect the lymph node. I suture ligated the base. I submitted this to pathology and microbiology. Hemostasis was achieved in the wound. The deep layer closed with 3-0-Vicryl. Skin closed with 3-0 Vicryl, followed by 4-0 Monocryl. Dermabond applied. He was awakened in the operating room, transferred to PACU in stable condition /[id number]/MODL MTDD
[2017-10-16 08:48] VITALS: TEMP 97
[2017-10-16 09:04] VITALS: RESP 18
[2017-10-16 09:42] VITALS: BP 138/86; O2SAT 91
== END 2017-10-16 09:56 | disposition home or self-care (01) ==
LOC: FSGY 05:41
PROVIDERS: ATTEND Surgery
PROC: 07BH0ZX Excision of Right Inguinal Lymphatic, Open Approach, Diagnostic (ICD-10-PCS; principal; 2017-10-16 07:30)
DX: R59.1 Generalized enlarged lymph nodes (principal); N28.9 Disorder of kidney and ureter, unspecified; M86.9 Osteomyelitis, unspecified; Z79.2 Long term (current) use of antibiotics
CPT/HCPCS: 88184-90; 88185-91; J0295; J2250; J2704; J3010

== ENCOUNTER 2017-10-31 11:54 | Inpatient (IN) | payer OTHER ==
[2017-10-31] MEDS ORDERED: ONDANSETRON DISINTEGRATING 4 MG TAB PO PRN (13:56)
[2017-10-31] MEDS ORDERED: ONDANSETRON 4 MG/2 ML VIAL IVP PRN (13:56)
[2017-10-31] MEDS ORDERED: ACETAMINOPHEN 325 MG TAB PO PRN (13:56)
--- NOTE | 2017-10-31 14:39 | PCMIDPN ---
Assessment/Plan: Assessment/Plan: Please see my office note in [place] for full details. * Right lower extremity cellulitis/probable residual osteomyelitis post amputation of 4th and 5th toes: Obtain baseline laboratories. Will begin treatment with vancomycin and ertapenem pending additional culture data. May ultimately need additional resection of metatarsal. Patient favors moving forward with BKA given previous experience with prolonged infection of left lower extremity. He understands complexity of bilateral amputations. Dr. Sweet will see in follow-up and I have discussed findings with her. * Fever/rigors. Concerning for possible bacteremia. Blood cultures will be obtained prior to initiation of antibiotic therapy. * Multiple antibiotic intolerances or allergies Clinical findings and plan reviewed with hospitalist service. 10/31/17 14:34 Objective: Vital Signs Temp Pulse Resp BP Pulse Ox 37.6 C 80 20 164/72 H 97 10/31/17 14:18 10/31/17 14:18 10/31/17 14:18 10/31/17 14:18 10/31/17 14:18 ICD10 Worksheet Patient Problems: Problems Problem Status Onset Osteomyelitis of toe of left foot Acute Diabetes type 2, uncontrolled Acute MRSA (methicillin resistant Staphylococcus aureus) Acute 02/19/16
[2017-10-31] MEDS ORDERED: oxyCODONE IR 5 MG TAB PO PRN (15:06)
[2017-10-31] MEDS: VANCOMYCIN 1.5 GM in NS 250 ML IV SCH (16:02)
[2017-10-31] MEDS ORDERED: D50W 25 GM/50 ML SYR IVP PRN (16:14)
[2017-10-31] MEDS ORDERED: diphenhydrAMINE 25 MG CAP PO PRN (16:34)
[2017-10-31] MEDS ORDERED: INSULIN LISPRO 100 UNIT/ML SC PRN (16:35)
--- NOTE | 2017-10-31 17:21 | GHP ---
[f rep st] HISTORY AND PHYSICAL DATE OF ADMISSION: 10/31/2017 CHIEF COMPLAINT: Fevers, acute on chronic right diabetic foot infection. PRIMARY INFECTIOUS DISEASE PHYSICIAN: Dr. Bermudez. PRIMARY SURGEON: Dr. Sweet. HISTORY OF PRESENT ILLNESS: A 57-year-old male, history of diabetes, peripheral vascular disease, an d chronic right foot wound infection, who is a direct admit from Dr. Bermudez's office with fevers and ri gors. Patient developed a right foot infection after a blister in October and underwent 4th and 5th ray amputation on 10/28/2017, by Dr. Sweet. He also suffered a hit to the bean with a softball resu lting in a wound. He underwent debridements on that same day. Cultures at that time grew out E faec tess. He was seen in clinic yesterday by Dr. Sweet in which she was able to probe to the bone. He w as seen with Dr. Bermudez today and complaining of fevers, thus he was transferred here. The patient edilia cribes a fever to 101, rigors for the past 2 weeks, but worse over the last couple of days. He has n oted increased pain in the bean. Had mild nausea, vomiting, and an episode of diarrhea. No headache s. He describes increased phantom pain in his left leg stump with this pain in his right leg. REVIEW OF SYSTEMS: I completed a 10-point review of systems, negative except as noted in HPI. PAST MEDICAL HISTORY: 1. Peripheral vascular disease. 2. Diabetic neuropathy. 3. 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 4. CKD. 5. Hypothyroidism. 6. Thyroid nodules, biopsy was negative. 7. A mesenteric mass. 8. Right groin lymphadenopathy, recently biopsied was negative. 9. Paroxysmal atrial fibrillation. 10. Diabetes. PAST SURGICAL HISTORY: Left BKA, amputation of 4th and 5th toe on right, right lymph node biopsy on 10/16, right Achilles tendon surgery. 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 Lives in [place] with his . Has 4 kids. No alcohol, tobacc o, or illicits. FAMILY HISTORY: Dad with diabetes, CAD. Mom with COPD. ALLERGIES: Albuterol, penicillin, Cipro, linezolid. HOME MEDICATIONS: Thyroid [place] 50 mg q.h.s., omega-3, vitamin D3, [place] units-33 mcg 10 units q.h.s., diltiazem 120, Xalatan eyedrops, lispro 8 units subcu t.i.d. meals, Xarelto 20, losa rtan 25 mg q.h.s. PHYSICAL EXAMINATION: VITAL SIGNS: Temperature 37.6, blood pressure 164/72, heart rate is in the 80 s, respirations 20, 97% on room air. GENERAL: Well-appearing, overweight male, no acute distress. HEENT: PERRLA. EOMI. Oropharynx clear. CVS: Regular rate and rhythm. No murmurs, gallops, rubs. LUNGS: Clear. ABDOMEN: Soft, nontender, nondistended. Positive bowel sounds. : No [place]. N o suprapubic tenderness. EXTREMITIES: Left BKA stump is without signs of infection. Right bean wou nd with granulation tissue. No surrounding erythema. Right foot dressed but evidence of warmth and erythema. LABS: WBC is pending. Sodium 135, potassium 4.8, chloride 101, carbon dioxide 17, anion gap 17, cre atinine is 1.3 (baseline 1.3-1.5), glucose 291. A1c 09/27/2017 is 10.7. Aorta with runoff CTA 09/30, mesenteric mass which could be related to GIST, lymphoma, or pancreatic malignancy. Esophagram 10/01/2017, trace GERD. Pathology 10/16/2017 of right groin lymph node: No evidence of malignancy. ASSESSMENT AND PLAN: 1. Fever, suspect secondary to acute on chronic right diabetic foot ulcer. The patient was evaluate d by Dr. Bermudez today in clinic and started on vancomycin and ertapenem. Dr. Sweet will evaluate patie nt tomorrow. Blood cultures are pending as well as a CBC. He does not tolerate antibiotics well. Gilda wilhelm will provide p.r.n. Benadryl. 2. Uncontrolled diabetes. Last A1c was 10 in September. He may resume his home insulin. We will add sliding scale, make adjustments. May need an additional long-acting in the morning. 3. Hypertension. Resume home medications. 4. Paroxysmal atrial fibrillation. Normal sinus rhythm now. Continue diltiazem and Xarelto. 5. Chronic kidney disease. Creatinine is stable at 1.3. 6. Mild metabolic acidosis likely secondary to dehydration, insensible losses with fevers. We will give gentle IV fluids. 7. Hypothyroidism. Continue Thyroid [place]. 8. Mesenteric mass: Had planned for a biopsy on Sunday. If stable from an infection standpoint, co uld have that done here. 9. Diet: Diabetic. 10. Deep venous thrombosis prophylaxis, on Xarelto. 11. Disposition: Patient warrants inpatient admission given acute on chronic diabetic wo und warranting IV antibiotics and further surgical evaluation. /[id number]/MODL
[2017-10-31] MEDS: ERTAPENEM 1 GM VIAL IV SCH (17:50)
[2017-10-31] MEDS ORDERED: RIVAROXABAN 20 MG TAB PO SCH (18:00)
[2017-10-31] MEDS: INSULIN LISPRO 100 UNIT/ML SC SCH (18:36)
[2017-10-31] MEDS: INSULIN GLARGINE SQ SCH ×2 (20:34→20:39)
[2017-10-31] MEDS: THYROID 60 MG TAB PO SCH (20:34)
[2017-10-31] MEDS: LIXISENATIDE SQ SCH ×2 (20:34→20:39)
[2017-10-31] MEDS: LOSARTAN POTASSIUM 25 MG TAB PO SCH (20:34)
[2017-10-31] MEDS: LATANOPROST 0.005% 2.5 ML OPHT DROPS EACHEYE SCH (20:34)
[2017-10-31] MEDS ORDERED: LIXISENATIDE SQ SCH (21:00)
[2017-10-31] MEDS ORDERED: LOSARTAN POTASSIUM 25 MG TAB PO SCH (21:00)
[2017-10-31] MEDS ORDERED: INSULIN GLARGINE SQ SCH (21:00)
[2017-10-31] MEDS ORDERED: THYROID 60 MG TAB PO SCH (21:00)
[2017-10-31] MEDS ORDERED: LATANOPROST 0.005% 2.5 ML OPHT DROPS EACHEYE SCH (21:00)
--- NOTE | 2017-11-01 08:14 | HOSPPROG ---
Hospitalist Progress Note Assessment/Plan: #Right foot cellulitis, probable residual osteo: Vanc/Ertapenem. May need amputation -wound vac placed today #Diabetes with hyperglycemia: clarified with him, he takes 20 units Soquila, SSI #Hypothyroidism: LT4 #Leukocytosis: improved on IV abx. Bld cultures negative thus far #Mesenteric mass: IR biopsy tomorrow if blood cultures remain negative #Parox atrial fib: rate-controlled on Dilt. Hold Xarelto for biospy #Diet: diabetic, NPO at MD #Disp: cont inpatient admission for IV abx, wound care Subjective: nauseated this morning Objective: Vital Signs Temp Pulse Resp BP Pulse Ox 37.0 C 129 H 16 131/86 H 94 11/01/17 07:46 11/01/17 07:46 11/01/17 07:46 11/01/17 07:46 11/01/17 07:46 Laboratory Results 11/01/17 05:00 11/01/17 05:00 10/31/17 11/01/17 11/02/17 05:59 05:59 05:59 Intake Total 906 Output Total 1350 Balance -444 - Physical Exam Constitutional: no apparent distress Eyes: PERRL Ears, Nose, Mouth, Throat: moist mucous membranes Cardiovascular: regular rate and rhythym Respiratory: no respiratory distress Gastrointestinal: normoactive bowel sounds, soft, non-tender abdomen Genitourinary: no bladder fullness Musculoskeletal: other (left BKA. Right foot with less redness and warmth. [place]vas wound with mild purulence) Neurologic: CN II-XII Intact Psychiatric: interacting appropriately ICD10 Worksheet Patient Problems: Problems Problem Status Onset Diabetes type 2, uncontrolled Acute MRSA (methicillin resistant Staphylococcus aureus) Acute 02/19/16 Osteomyelitis of toe of left foot Acute
[2017-11-01] MEDS ORDERED: DILTIAZEM CD 120 MG CAP PO SCH (09:00)
[2017-11-01] MEDS ORDERED: ENOXAPARIN 40 MG/0.4 ML SYR SC SCH (09:00)
[2017-11-01] MEDS: ERTAPENEM 1 GM VIAL IV SCH (09:18)
[2017-11-01] MEDS: OMEGA-3 FATTY ACIDS 1,000 MG CAP PO SCH (09:19)
[2017-11-01] MEDS: INSULIN LISPRO 100 UNIT/ML SC SCH ×3 (09:20→19:38)
[2017-11-01] MEDS: CHOLECALCIFEROL VIT D3 1,000 UNITS TAB PO SCH (09:20)
[2017-11-01] MEDS: ENOXAPARIN 40 MG/0.4 ML SYR SC SCH (09:20)
[2017-11-01] MEDS: DILTIAZEM CD 120 MG CAP PO SCH (09:21)
--- NOTE | 2017-11-01 10:45 | PDMN ---
Medical Necessity Medical necessity: Patient meets inpatient criteria per physician note and MCG M -600 Osteomyelitis - 3 days - ([id number] R diabetic foot ulcer; (per ID - RLE cellulitis/probable residual osteomyelitis s/p amputation of 4th and 5th toes); fever/rigors with concerns for bacteremia/blood cultures pending; uncontrolled diabetes, anticipated LOS > 2 midnights for ongoing IV hydration and antibiotics, possible surgical intervention/extension of amputation.)
[2017-11-01] MEDS ORDERED: INSULIN LISPRO 100 UNIT/ML SC SCH (12:00)
[2017-11-01] MEDS: VANCOMYCIN 1.5 GM in NS 250 ML IV SCH (14:57)
--- NOTE | 2017-11-01 15:32 | SOAPPROG ---
SOAP Progress Note Assessment/Plan: Assessment: 57-year-old well-known to me Diabetes mellitus Status post left BKA Most recently status post right 4th and 5th ray and metatarsal heads - wound dehiscence. 4th metatarsal is palpable. I placed VeraFlo wound VAC today Status post excisional debridement of hematoma on right lower extremity. I will change the Hydrofera Blue tomorrow Antibiotics per ID S: Feeling better o: Erythema on dorsum of foot is much improved from when I some in the office 2 days ago. There is less tenderness. Bone is barely palpable. The quality of the wound does not have healthy granulation tissue however nor does it have obvious areas of infection within the wound. Plan: 11/01/17 15:30 Objective: Vital Signs Temp Pulse Resp BP Pulse Ox 36.6 C 102 H 16 94/71 L 92 11/01/17 11:14 11/01/17 11:14 11/01/17 11:14 11/01/17 11:14 11/01/17 11:14 Laboratory Results 11/01/17 05:00 11/01/17 05:00 10/31/17 11/01/17 11/02/17 05:59 05:59 05:59 Intake Total 906 Output Total 1350 Balance -444 ICD10 Worksheet Patient Problems: Problems Problem Status Onset Diabetes type 2, uncontrolled Acute MRSA (methicillin resistant Staphylococcus aureus) Acute 02/19/16 Osteomyelitis of toe of left foot Acute
[2017-11-01] MEDS ORDERED: NS 500 ML IV ONE (15:51)
--- NOTE | 2017-11-01 17:56 | ASMTCMCOM ---
CM Note CM Note Notes: Dc needs uncertain, pt lives at home w/. PT/OT still pending. Pt has hx of uncontrolled diabetes, CM w/f. DC Plan: TBD Date Signed: 11/01/2017 05:55 PM Electronically Signed By:Anna Miller RN
--- NOTE | 2017-11-01 19:28 | PCMIDPN ---
Assessment/Plan: Assessment/Plan: * Right lower extremity cellulitis/probable residual osteomyelitis post amputation of 4th and 5th toes: Erythema without significant interval change. Blood cultures are no growth to date. Continue empiric vancomycin and ertapenem. Assess vancomycin trough prior to dose tomorrow. * Fever/rigors. Concerning for possible bacteremia. Blood cultures remain no growth today. Continue to follow. Temperature has improved. * Multiple antibiotic intolerances or allergies * Mesenteric mass: Plans for percutaneous biopsy tomorrow. As long as blood cultures remain negative, no infectious disease opposition to proceeding with biopsy. Time spent, 25 min, which greater than half was spent in education/counseling/ coordination of care related to right lower extremity cellulitis, fever, and plan of care. 11/01/17 19:25 11/01/17 19:28 Subjective: Patient felt poorly after antibiotics this a.m.. Foot feels about the same. Objective: Vital Signs Temp Pulse Resp BP Pulse Ox 36.9 C 81 20 73/54 L 89 L 11/01/17 15:32 11/01/17 15:32 11/01/17 15:32 11/01/17 15:32 11/01/17 15:32 Laboratory Results 11/01/17 05:00 11/01/17 05:00 10/31/17 11/01/17 11/02/17 05:59 05:59 05:59 Intake Total 906 700 Output Total 1350 Balance -444 700 Vancomycin # 2 Ertapenem # 2 Blood cultures x2 no growth - Physical Exam General Appearance: alert, no apparent distress EENT: No scleral icterus Extremities: inflammation (Right foot with persistent erythema over dorsal aspect; no purulence from open wound at base of 4th and 5th toe; warmth and tenderness present; bean wound without interval change and less erythema at margins) ICD10 Worksheet Patient Problems: Problems Problem Status Onset Diabetes type 2, uncontrolled Acute MRSA (methicillin resistant Staphylococcus aureus) Acute 02/19/16 Osteomyelitis of toe of left foot Acute
[2017-11-01 20:05] LABS: INR 1.23 (0.83-1.16); PROTIME(PATIENT) 15.7 SEC (12.0-15.0)
[2017-11-01] MEDS: LATANOPROST 0.005% 2.5 ML OPHT DROPS EACHEYE SCH (21:22)
[2017-11-01] MEDS: THYROID 60 MG TAB PO SCH (21:22)
[2017-11-01] MEDS: LOSARTAN POTASSIUM 25 MG TAB PO SCH (21:22)
--- NOTE | 2017-11-02 08:14 | SOAPPROG ---
SOAP Progress Note Assessment/Plan: Assessment/Plan: 57-year-old well-known to our service for L BKA and R diabetic foot wounds now s/p R 4th and 5th ray and met head amputations. Wound dehiscence - with palpable 4th met head in base of wound. Vera evelyn changed today - will change MWF Traumatic hematoma R bean s/p excisional debridement - hydrofera blue ready changed today - change q3d IV antibiotics per ID DM management per hospitalists Mesenteric mass found incidentally on previous CTA - needle bx scheduled today Seen c Dr. Sweet S: no new complaints this am O: pleasant man in NAD, Aixa at bedside No increased WOB R dorsal foot wound 1.4x2.5x1.4 cm, erythema increased compared to yesterday. R bean wound 4.6x2.2x0.2cm with granulation in the base, no surrounding erythema 11/02/17 13:18 Objective: Vital Signs Temp Pulse Resp BP Pulse Ox 36.9 C 139 H 16 111/69 94 11/02/17 07:46 11/02/17 07:46 11/02/17 07:46 11/02/17 07:46 11/02/17 07:46 Laboratory Results 11/02/17 05:40 11/02/17 05:40 11/01/17 11/02/17 11/03/17 05:59 05:59 05:59 Intake Total 906 700 Output Total 1350 900 Balance -444 -200 PT 15.7 SEC (12.0-15.0) H 11/01/17 19:48 INR 1.23 (0.83-1.16) H 11/01/17 19:48 ICD10 Worksheet Patient Problems: Problems Problem Status Onset Diabetes type 2, uncontrolled Acute MRSA (methicillin resistant Staphylococcus aureus) Acute 02/19/16 Osteomyelitis of toe of left foot Acute
[2017-11-02] MEDS ORDERED: NALOXONE HCL 0.4 MG/ML INJ ONE (08:24)
[2017-11-02] MEDS ORDERED: FLUMAZENIL 0.5 MG/5 ML MDV IVP ONE (08:24)
[2017-11-02] MEDS ORDERED: MIDAZOLAM 2 MG/2 ML VIAL ONE (08:25)
[2017-11-02] MEDS ORDERED: fentaNYL 100 MCG/2 ML INJ ONE (08:25)
[2017-11-02] MEDS ORDERED: GLUCAGON HCL 1 MG VIAL IVP PRN (08:27)
[2017-11-02] MEDS ORDERED: NALOXONE HCL 0.4 MG/ML INJ IVP PRN (08:27)
[2017-11-02] MEDS ORDERED: FLUMAZENIL 0.5 MG/5 ML MDV IVP PRN (08:27)
[2017-11-02] MEDS ORDERED: MEPERIDINE 25 MG/ML SYR IVP PRN (08:27)
[2017-11-02] MEDS ORDERED: fentaNYL 100 MCG/2 ML INJ IVP PRN (08:27)
[2017-11-02] MEDS ORDERED: MIDAZOLAM 2 MG/2 ML VIAL IVP PRN (08:27)
[2017-11-02] MEDS ORDERED: PROTAMINE SULFATE 50 MG/5 ML VIAL IVP PRN (08:27)
[2017-11-02] MEDS ORDERED: NS 1,000 ML IV SCH (08:30)
--- NOTE | 2017-11-02 08:37 | WOCRNPDOC ---
[facility] Advanced Assessment Note - Skin Integrity Problem, Advanced Assess Right Anterior Lower Lateral Leg Diabetic Ulcer Dressing Type: Allevyn Life, Hydrofera Blue (Transfer) Dressing Description: Intact Exudate Amount: Scant Exudate Color: Reddish/Yellow Exudate Characteristic(s): Serosanguinous Integumentary Issue Intervention: Dressing Changed, Dressing Initialed & Dated Lana Wound Tissue: Intact Lana Wound Swelling: None Wound Bed Color: Red Wound Bed Constitution: Granulation Tissue (100%) Site Odor: None Site Measurement - Head-to-Toe Length X Width X Depth (cm): 4.6cmx2.2cmx0.2xm Skin Integrity Problem Comment: Red, beefy, well-granulated wound w/ no apparent necrosis. Periwound skin is intact w/ no erythema. Will continue tx initiated by Dr. Sweet, including HFB Transfer and Allevyn Life, changing q3 days. Right Distal Pedal Fifth Toe Surgical Wound/Incision Dressing Type: Wound Vac (Veraflo w/ Vashe) Dressing Description: Intact Integumentary Issue Intervention: Dressing Changed Lana Wound Tissue: Erythema, Macerated (immediately lana wound), Swollen Lana Wound Swelling: Mild Wound Bed Color: Red, Yellow Wound Bed Constitution: Red/[place] - Non Granular Tissue, Bone, Adhered Slough Site Odor: None Site Measurement - Head-to-Toe Length X Width X Depth (cm): 1.4cmx2.5cmx1.4cm Skin Integrity Problem Comment: Assessed wound at bedside w/ Dr. Sweet and GUILLERMINA Anderson. Wound bed itself mostly red, non-granulating tissue w/ trace adhered slough. Bone is palpable along superior aspect. Mild periwound maceration, erythema, and mild swelling extending onto dorsum of R foot. Will continue w/ Verflo tx and Vashe solution through the weekend.
[2017-11-02] MEDS: DILTIAZEM CD 120 MG CAP PO SCH (08:47)
[2017-11-02] MEDS: OMEGA-3 FATTY ACIDS 1,000 MG CAP PO SCH (12:47)
[2017-11-02] MEDS: CHOLECALCIFEROL VIT D3 1,000 UNITS TAB PO SCH (12:47)
[2017-11-02] MEDS: INSULIN LISPRO 100 UNIT/ML SC SCH ×3 (12:49→18:25)
[2017-11-02] MEDS: ERTAPENEM 1 GM VIAL IV SCH (12:50)
--- NOTE | 2017-11-02 17:10 | PCMIDPN ---
Assessment/Plan: Assessment: Plan: Objective: Vital Signs Temp Pulse Resp BP Pulse Ox 36.5 C 123 H 16 105/73 94 11/02/17 15:51 11/02/17 15:51 11/02/17 15:51 11/02/17 15:51 11/02/17 15:51 Laboratory Results 11/02/17 05:40 11/02/17 05:40 11/01/17 11/02/17 11/03/17 05:59 05:59 05:59 Intake Total 377 329 6721 Output Total 1350 900 600 Balance -444 -200 720 ICD10 Worksheet Patient Problems: Problems Problem Status Onset Diabetes type 2, uncontrolled Acute MRSA (methicillin resistant Staphylococcus aureus) Acute 02/19/16 Osteomyelitis of toe of left foot Acute
--- NOTE | 2017-11-02 17:26 | ASMTCMCOM ---
CM Note CM Note Notes: Pt was evaluated by PT and cleared for home. 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 At present pt has a wound vac, unclear if he will need one going home. CM will continue to follow. Date Signed: 11/02/2017 05:26 PM Electronically Signed By:Anna Miller RN
--- NOTE | 2017-11-02 17:47 | PDPROPOC ---
Sedation Plan of Care Sedation Plan of Care: vital signs stable, mental status noted, patient educated of risks, benefits, alternatives, patient can tolerate sedation ASA Classification: ASA 2 Planned drugs: fentanyl, midazolam Mallampati Score: Class 2 Mallampati Reference Image: Patient passed 3-3-2 rule?: Yes
--- NOTE | 2017-11-02 17:51 | PDRADPN ---
Radiology Procedure Note Date of Procedure: 11/02/17 Radiologist: Vlad Mohr Engineering Mechanic(s): ROBERT Hays Anesthesiologist: None Anesthesia: IV Sedation (Versed and fentanyl) Pre-op Diagnosis: Indeterminant mesenteric mass Post-op Diagnosis: Indeterminant mesenteric mass Indication: Indeterminant mesenteric mass Procedure: Ct guided mesenteric mass biopsy 18 ga core needle bx Finding(s): No intraperitoneal bleed. Inf/Abcess present in the surg proc area at time of surgery?: No Depth: Organ Space EBL: Minimal Complications: No immediate complication Drains: Other (None) Specimen(s): 18 guage cores x 4. x3 in Formalin x1 Hanks' solution
--- NOTE | 2017-11-02 18:24 | CPEKG ---
Heart Rate: 135 RR Interval: 444 QRSD Interval: 80 QT Interval: 336 QTC Interval: 504 QRS [place]: 99 T Wave [place]: -7 EKG Severity - ABNORMAL ECG - EKG Impression: ATRIAL FIBRILLATION EKG Impression: BORDERLINE RIGHT AXIS DEVIATION EKG Impression: LOW VOLTAGE IN FRONTAL LEADS EKG Impression: BORDERLINE T ABNORMALITIES, INFERIOR LEADS EKG Impression: PROLONGED QT INTERVAL EKG Impression: ATRIAL FIB IS NOW OTED Electronically Signed By: Nael Wooten 02-Nov-2017 20:43:17
[2017-11-02] MEDS: VANCOMYCIN 1 GM in NS 250 ML IV SCH (18:26)
[2017-11-02] MEDS ORDERED: VANCOMYCIN 1 GM in NS 250 ML IV ONE (18:30)
[2017-11-02] MEDS: VANCOMYCIN 1.5 GM in NS 250 ML IV SCH (18:37)
--- NOTE | 2017-11-02 19:30 | HOSPPROG ---
Hospitalist Progress Note Assessment/Plan: #Right foot cellulitis, probable residual osteo: Vanc/Ertapenem. May need amputation -wound vac placed today #Diabetes with hyperglycemia: clarified with him, he takes 20 units Soquila, SSI #Hypothyroidism: LT4 #Leukocytosis: improved on IV abx. Bld cultures negative thus far #Mesenteric mass: IR biopsy today #Parox atrial fib: Dilt. Restart Xarelto tomorrow if no bleeding not after today 's bx #Diet: diabetic #Disp: cont inpatient admission for IV abx, wound care Subjective: pain in bean improved Objective: Vital Signs Temp Pulse Resp BP Pulse Ox 36.8 C 135 H 16 97/72 L 94 11/02/17 19:12 11/02/17 19:12 11/02/17 19:12 11/02/17 19:12 11/02/17 19:12 Laboratory Results 11/02/17 05:40 11/02/17 05:40 11/01/17 11/02/17 11/03/17 05:59 05:59 05:59 Intake Total 978 700 5475 Output Total 1350 900 600 Balance -444 -200 720 PT 15.7 SEC (12.0-15.0) H 11/01/17 19:48 INR 1.23 (0.83-1.16) H 11/01/17 19:48 - Physical Exam Constitutional: no apparent distress Eyes: PERRL Ears, Nose, Mouth, Throat: moist mucous membranes Cardiovascular: irregularly irregular, tachycardia Respiratory: no respiratory distress, no rales or rhonchi Gastrointestinal: normoactive bowel sounds Genitourinary: no bladder fullness Musculoskeletal: other (right foot wound vac, redness improved. Bean wound dressed) Neurologic: AAOx3, CN II-XII Intact ICD10 Worksheet Patient Problems: Problems Problem Status Onset Diabetes type 2, uncontrolled Acute MRSA (methicillin resistant Staphylococcus aureus) Acute 02/19/16 Osteomyelitis of toe of left foot Acute
[2017-11-02] MEDS: LATANOPROST 0.005% 2.5 ML OPHT DROPS EACHEYE SCH (20:25)
[2017-11-02] MEDS: THYROID 60 MG TAB PO SCH (20:25)
[2017-11-03] MEDS ORDERED: NS 500 ML IV ONE (07:20)
[2017-11-03] MEDS: DILTIAZEM CD 120 MG CAP PO SCH (07:30)
[2017-11-03] MEDS: OMEGA-3 FATTY ACIDS 1,000 MG CAP PO SCH (07:56)
[2017-11-03] MEDS: CHOLECALCIFEROL VIT D3 1,000 UNITS TAB PO SCH (07:56)
[2017-11-03] MEDS: ERTAPENEM 1 GM VIAL IV SCH (07:56)
--- NOTE | 2017-11-03 08:43 | SOAPPROG ---
SOAP Progress Note Assessment/Plan: Assessment/Plan: 57yo M c R foot dehiscence of previous amp, s/p mesenteris mass biopsy - pain is well controlled, abdomen is soft, biopsy site clean dry and intact Vera flow VAC changed yesterday, holding suction appropriately. Next change Sunday. No new recommendations over the weekend. 11/03/17 08:42 Subjective: no complaints Objective: Vital Signs Temp Pulse Resp BP Pulse Ox 36.1 C 142 H 10 L 113/90 H 96 11/03/17 08:00 11/03/17 08:00 11/03/17 08:00 11/03/17 08:00 11/03/17 08:00 Laboratory Results 11/03/17 05:12 11/03/17 05:12 11/02/17 11/03/17 11/04/17 05:59 05:59 05:59 Intake Total 700 1770 Output Total 900 2000 350 Balance -200 -230 -350 PT 15.7 SEC (12.0-15.0) H 11/01/17 19:48 INR 1.23 (0.83-1.16) H 11/01/17 19:48 ICD10 Worksheet Patient Problems: Problems Problem Status Onset Diabetes type 2, uncontrolled Acute MRSA (methicillin resistant Staphylococcus aureus) Acute 02/19/16 Osteomyelitis of toe of left foot Acute
[2017-11-03] MEDS ORDERED: DILTIAZEM 30 MG TAB PO ONE (09:06)
[2017-11-03] MEDS: INSULIN LISPRO 100 UNIT/ML SC SCH ×3 (09:19→18:30)
--- NOTE | 2017-11-03 09:53 | HOSPPROG ---
Hospitalist Progress Note Assessment/Plan: 57y male with foot pain and erythema. First encounter, chart reviewed. D/W CM, RN and Dr Dao. #Right foot cellulitis, probable residual osteo: -Vanc/Ertapenem. May need amputation -wound vac placed, change on Sunday #Diabetes with hyperglycemia: -clarified with him, he takes 20 units Soquila, SSI -cont aggressive control #Hypothyroidism: -LT4 #Leukocytosis: -improved on IV abx. -Bld cultures negative thus far #Mesenteric mass: -IR biopsy 11/02 -path pending #ERIC on CKD: -Cr up to 1.6 now back to 1.3 -Hold Losartan, monitor vanc closely. -urine lytes stable #Parox atrial fib: -Dilt. long acting, cozaar -add 30mg short acting once today and follow -Restart Xarelto today #Diet: diabetic #Disp: cont inpatient admission for IV abx, wound care Subjective: Feels well today. No specific complaints. Having some phantom pains. Objective: Vital Signs Temp Pulse Resp BP Pulse Ox 36.1 C 143 H 10 L 137/100 H 96 11/03/17 08:00 11/03/17 09:18 11/03/17 08:00 11/03/17 09:18 11/03/17 08:00 Laboratory Results 11/03/17 05:12 11/03/17 05:12 11/02/17 11/03/17 11/04/17 05:59 05:59 05:59 Intake Total 700 1770 Output Total 900 2000 350 Balance -200 -230 -350 PT 15.7 SEC (12.0-15.0) H 11/01/17 19:48 INR 1.23 (0.83-1.16) H 11/01/17 19:48 - Physical Exam Constitutional: appears nourished, chronically ill appearing, obese Eyes: PERRL, anicteric sclera, EOMI Ears, Nose, Mouth, Throat: moist mucous membranes, hearing normal, ears appear normal Cardiovascular: irregularly irregular, tachycardia, No JVD Respiratory: no respiratory distress, no rales or rhonchi, reduced air movement Gastrointestinal: normoactive bowel sounds, No tenderness, No ascites Skin: warm, erythema, other (wound vac) Musculoskeletal: pain with ROM, muscular tenderness, abnormal gait, generalized weakness Neurologic: AAOx3 Psychiatric: interacting appropriately, not anxious, not encephalopathic, thought process linear ICD10 Worksheet Patient Problems: Problems Problem Status Onset Osteomyelitis of toe of left foot Acute Diabetes type 2, uncontrolled Acute MRSA (methicillin resistant Staphylococcus aureus) Acute 02/19/16
[2017-11-03] MEDS ORDERED: LACTULOSE 20 GM/30 ML UDCUP PO PRN (10:08)
[2017-11-03] MEDS ORDERED: POLYETHYLENE GLYCOL 3350 17 GM PKT PO PRN (10:08)
[2017-11-03] MEDS ORDERED: BISACODYL 10 MG SUPP PR PRN (10:08)
[2017-11-03] MEDS ORDERED: MAGNESIUM HYDROXIDE 30 ML UDCUP PO PRN (10:08)
[2017-11-03] MEDS: SENNOSIDES/DOCUSATE SODIUM TAB PO SCH ×2 (10:31→20:10)
[2017-11-03] MEDS: ENOXAPARIN 40 MG/0.4 ML SYR SC SCH (11:56)
[2017-11-03] MEDS: RIVAROXABAN 20 MG TAB PO SCH (18:29)
[2017-11-03] MEDS: VANCOMYCIN 1 GM in NS 250 ML IV SCH (18:48)
--- NOTE | 2017-11-03 19:13 | PCMIDPN ---
Assessment/Plan: Assessment/Plan: 1. Right lower extremity cellulitis/probable residual osteomyelitis post amputation of 4th and 5th toes: - ERythema not worse per notes, patient -Currently on empiric vanco, invanz -continue LE elevation. - blood cx ngtd - wbc starting to trend down -possible Bka in consideration by patient. 2. mesenteric mass- - s/p BX. results pending meds vanco 1g daily invanz 1g daily -10/31/17 Subjective: afebrile. states redness on foot maybe a little better. he feels it is worse when leg is down and better when leg is elevated. denies sob, abd pain or diarrhea. Objective: Vital Signs Temp Pulse Resp BP Pulse Ox 36.8 C 133 H 12 120/86 H 96 11/03/17 16:00 11/03/17 16:00 11/03/17 16:00 11/03/17 16:00 11/03/17 16:00 Laboratory Results 11/03/17 05:12 11/03/17 05:12 11/02/17 11/03/17 11/04/17 05:59 05:59 05:59 Intake Total 700 1770 Output Total 900 2000 350 Balance -200 -230 -350 - Physical Exam General Appearance: alert, no apparent distress Respiratory: lungs clear Cardiac/Chest: regular rate, rhythm Extremities: swelling Abdomen: normal bowel sounds, non-tender, soft, No distended Skin: erythema (right foot with erythema on dorsum of foot.. wound vac noted. leg wound wiht hydrafera blue present.) ICD10 Worksheet Patient Problems: Problems Problem Status Onset Diabetes type 2, uncontrolled Acute MRSA (methicillin resistant Staphylococcus aureus) Acute 02/19/16 Osteomyelitis of toe of left foot Acute
[2017-11-03] MEDS: THYROID 60 MG TAB PO SCH (20:10)
[2017-11-03] MEDS: LATANOPROST 0.005% 2.5 ML OPHT DROPS EACHEYE SCH (20:10)
[2017-11-04] MEDS: INSULIN LISPRO 100 UNIT/ML SC SCH ×3 (07:51→17:45)
[2017-11-04] MEDS: DILTIAZEM CD 120 MG CAP PO SCH (09:18)
[2017-11-04] MEDS: CHOLECALCIFEROL VIT D3 1,000 UNITS TAB PO SCH (09:18)
[2017-11-04] MEDS: ERTAPENEM 1 GM VIAL IV SCH (09:18)
[2017-11-04] MEDS: OMEGA-3 FATTY ACIDS 1,000 MG CAP PO SCH (09:18)
[2017-11-04] MEDS: SENNOSIDES/DOCUSATE SODIUM TAB PO SCH ×2 (09:19→20:56)
--- NOTE | 2017-11-04 09:47 | WOCRNPDOC ---
WOCRN Advanced Assessment Note - Skin Integrity Problem, Advanced Assess Right Groin Surgical Wound/Incision Dressing Type: Allevyn Life Dressing Description: Intact Exudate Amount: Scant Exudate Color: Yellow Exudate Characteristic(s): Serous Integumentary Issue Intervention: Visualized Under Dressing Dee Wound Tissue: Indurated (mild, immediately periwound), Intact Dee Wound Swelling: Mild Wound Bed Color: Yellow Wound Bed Constitution: Red/[place] - Non Granular Tissue, Loose Slough Wound Edges: Epithelizing Site Odor: None Site Measurement - Head-to-Toe Length X Width X Depth (cm): 0.7cmx0.2cmx0.1cm Skin Integrity Problem Comment: Discrete biopsy site in patient's R groin s/p lymph node biopsy, w/ scant,loose, relatively superficial slough proximally and red, non-granular tissue along mostly linear wound. Mild induration periwound w / minimal swelling and erythema. No fluctuance or purulence observed. Will have nursing continue w/ Allevyn, adding Silvasorb gel.
--- NOTE | 2017-11-04 11:18 | SOAPPROG ---
SOAP Progress Note Assessment/Plan: Assessment/Plan: 57yo M c R foot dehiscence of previous amp, s/p mesenteris mass biopsy - VAC working, abdomen soft. - VAC change tomorrow 11/03/17 08:42 11/04/17 11:18 Subjective: feels great, has some itching to his abdomen where the Bx ws Objective: Vital Signs Temp Pulse Resp BP Pulse Ox 36.7 C 70 12 130/80 H 97 11/04/17 07:37 11/04/17 09:18 11/04/17 07:37 11/04/17 09:18 11/04/17 07:37 Laboratory Results 11/03/17 05:12 11/03/17 05:12 11/03/17 11/04/17 11/05/17 05:59 05:59 05:59 Intake Total 1770 200 Output Total 1999 1550 400 Balance -230 -1350 -400 PT 15.7 SEC (12.0-15.0) H 11/01/17 19:48 INR 1.23 (0.83-1.16) H 11/01/17 19:48 ICD10 Worksheet Patient Problems: Problems Problem Status Onset Diabetes type 2, uncontrolled Acute MRSA (methicillin resistant Staphylococcus aureus) Acute 02/19/16 Osteomyelitis of toe of left foot Acute
--- NOTE | 2017-11-04 13:51 | HOSPPROG ---
Hospitalist Progress Note Assessment/Plan: 57y male with foot pain and erythema. #Right foot cellulitis, probable residual osteo: -Vanc/Ertapenem. May need amputation -wound vac placed, change on Sunday #Diabetes with hyperglycemia: -clarified with him, he takes 20 units Soquila, SSI -cont aggressive control #Hypothyroidism: -LT4 #Leukocytosis: -improved on IV abx. -Bld cultures negative thus far #Mesenteric mass: -IR biopsy 11/02 -path pending #ERIC on CKD: -Cr up to 1.6 now back to 1.3 -Hold Losartan, monitor vanc closely. -urine lytes stable #Parox atrial fib: -Dilt. long acting, cozaar -added 30mg short acting once 11/03 -resolved, NSR today -Restarted Xarelto 11/03 #Diet: diabetic #Disp: cont inpatient admission for IV abx, wound care Subjective: Up in the chair. Feels great. No issues. Objective: Vital Signs Temp Pulse Resp BP Pulse Ox 36.9 C 67 19 132/86 H 95 11/04/17 11:30 11/04/17 11:30 11/04/17 11:30 11/04/17 11:30 11/04/17 11:30 Laboratory Results 11/03/17 05:12 11/03/17 05:12 11/03/17 11/04/17 11/05/17 05:59 05:59 05:59 Intake Total 1770 200 Output Total 2000 1550 400 Balance -230 -1350 -400 PT 15.7 SEC (12.0-15.0) H 11/01/17 19:48 INR 1.23 (0.83-1.16) H 11/01/17 19:48 - Physical Exam Constitutional: not in pain, chronically ill appearing Eyes: PERRL, anicteric sclera Ears, Nose, Mouth, Throat: moist mucous membranes, hearing normal Cardiovascular: No JVD, No edema Respiratory: no respiratory distress, reduced air movement Gastrointestinal: No tenderness, No ascites Skin: warm, erythema Musculoskeletal: no joint effusions, generalized weakness Neurologic: AAOx3 Psychiatric: interacting appropriately, not anxious, not encephalopathic ICD10 Worksheet Patient Problems: Problems Problem Status Onset Osteomyelitis of toe of left foot Acute Diabetes type 2, uncontrolled Acute MRSA (methicillin resistant Staphylococcus aureus) Acute 02/19/16
[2017-11-04] MEDS: RIVAROXABAN 20 MG TAB PO SCH (17:45)
[2017-11-04] MEDS ORDERED: VANCOMYCIN HCL/NORMAL SALINE 250 ML IV SCH (18:30)
[2017-11-04] MEDS: THYROID 60 MG TAB PO SCH (20:56)
[2017-11-04] MEDS: LATANOPROST 0.005% 2.5 ML OPHT DROPS EACHEYE SCH (20:59)
[2017-11-05] MEDS: DILTIAZEM CD 120 MG CAP PO SCH (08:44)
[2017-11-05] MEDS: OMEGA-3 FATTY ACIDS 1,000 MG CAP PO SCH (08:44)
[2017-11-05] MEDS: CHOLECALCIFEROL VIT D3 1,000 UNITS TAB PO SCH (08:44)
[2017-11-05] MEDS: SENNOSIDES/DOCUSATE SODIUM TAB PO SCH ×2 (08:44→20:16)
[2017-11-05] MEDS: INSULIN LISPRO 100 UNIT/ML SC SCH ×3 (08:45→18:11)
[2017-11-05] MEDS: ERTAPENEM 1 GM VIAL IV SCH (09:58)
--- NOTE | 2017-11-05 10:48 | WOCRNPDOC ---
WOCRJoni Advanced Assessment Note - Skin Integrity Problem, Advanced Assess Right Distal Pedal Fifth Toe Surgical Wound/Incision Dressing Type: Wound Vac (veraflo x 2 pieces of foam. ) Dressing Description: Clean/Dry, Intact Exudate Amount: Scant Exudate Characteristic(s): Serosanguinous Integumentary Issue Intervention: Dressing Changed Dee Wound Tissue: Macerated (extreme), Calloused (moderate) Wound Bed Color: Homeland, Yellow Wound Bed Constitution: Red/Homeland - Non Granular Tissue, Adhered Slough Site Measurement - Head-to-Toe Length X Width X Depth (cm): 1.3x2.4x1.1 Skin Integrity Problem Comment: Vashe veraflo continued. Two pieces of vaughan foam to wound bed after application of mastisol. Vac restarted at previous settings. No leaks. Next change due Wed. La SARMIENTO observed wound bed.
--- NOTE | 2017-11-05 12:27 | SOAPPROG ---
SOAP Progress Note Assessment/Plan: Assessment/Plan: 57-year-old well-known to our service for L BKA and R diabetic foot wounds now s/p R 4th and 5th ray and met head amputations. Wound dehiscence - with palpable 4th met head in base of wound. Vera evelyn changed today - will change MWF Traumatic hematoma R bean s/p excisional debridement - hydrofera blue ready change q3d IV antibiotics per ID DM management per hospitalists Mesenteric mass found incidentally on previous CTA - needle bx pathology pending Dispo: waiting for diagnosis of mesenteric mass before making further decision- making. Jerrell is very frustrated with the delayed wound healing and is leaning towards a BKA to avoid prolonged recovery which may ultimately lead to amputation anyway. Discussed with Dr. Bermudez. Will plan for family meeting with Dr. Bermudez and Dr. Sweet tomorrow afternoon to discuss goals of care with Jerrell and Aixa. S: no new complaints this am. Doesn't feel great but no specific complaints. Redness of foot fluctuates, becomes more purple when dependent. O: pleasant man in NAD, Aixa at bedside No increased WOB R dorsal foot wound 1.4x2.5x1.4 cm with tiny palpable metatarsal in base of wound, erythema stable compared to Sunday. R bean wound with granulation in the base, no surrounding erythema - HFB ready not completely removed (not due to be changed until tomorrow) Objective: Vital Signs Temp Pulse Resp BP Pulse Ox 36.9 C 66 18 140/72 H 93 11/05/17 12:07 11/05/17 12:07 11/05/17 12:07 11/05/17 12:07 11/05/17 12:07 Laboratory Results 11/03/17 05:12 11/04/17 11/05/17 11/06/17 05:59 05:59 05:59 Intake Total 200 1050 Output Total 1550 1750 Balance -1350 -700 PT 15.7 SEC (12.0-15.0) H 11/01/17 19:48 INR 1.23 (0.83-1.16) H 11/01/17 19:48 ICD10 Worksheet Patient Problems: Problems Problem Status Onset Diabetes type 2, uncontrolled Acute MRSA (methicillin resistant Staphylococcus aureus) Acute 02/19/16 Osteomyelitis of toe of left foot Acute
--- NOTE | 2017-11-05 13:44 | PCMIDPN ---
Assessment/Plan: Assessment/Plan: * Right lower extremity cellulitis/probable residual osteomyelitis post amputation of 4th and 5th toes: Erythema markedly decreased. Blood culture remains no growth. Will stop vancomycin and continue with ertapenem given negative cultures. Patient prefers to move for with BKA - awaiting pathology of mesenteric mass to help define timing and additional considerations. Plan on meeting with myself and Dr. Sweet tomorrow to further discuss. * Fever/rigors. Resolved. * Multiple antibiotic intolerances or allergies * Mesenteric mass: Biopsy findings pending. Time spent, 25 min, which greater than half was spent in education/counseling/ coordination of care related to right lower extremity cellulitis and plan of care. 11/05/17 13:41 Subjective: Patient frustrated with uncertain direction of care as biopsy results are pending. Some agitation over weekend. Objective: Vital Signs Temp Pulse Resp BP Pulse Ox 36.9 C 66 18 140/72 H 93 11/05/17 12:07 11/05/17 12:07 11/05/17 12:07 11/05/17 12:07 11/05/17 12:07 Laboratory Results 11/03/17 05:12 11/05/17 11:45 11/04/17 11/05/17 11/06/17 05:59 05:59 05:59 Intake Total 200 1050 Output Total 1550 1750 Balance -1350 -700 Vancomycin # 6 Ertapenem # 6 Blood cultures x2 no growth - Physical Exam General Appearance: alert, no apparent distress EENT: No scleral icterus Extremities: inflammation (Erythema over dorsal aspect of foot markedly decreased with some desquamation of skin beginning; wound VAC in place) Skin: other (Mild irritation at IV site) ICD10 Worksheet Patient Problems: Problems Problem Status Onset Diabetes type 2, uncontrolled Acute MRSA (methicillin resistant Staphylococcus aureus) Acute 02/19/16 Osteomyelitis of toe of left foot Acute
--- NOTE | 2017-11-05 14:35 | HOSPPROG ---
Hospitalist Progress Note Assessment/Plan: 57y male with foot pain and erythema. Reviewed with Dr. Bermudez #Right foot cellulitis, probable residual osteo: -post amputation of 4th and 5th toes -BC NGT -Vanc stopped /Ertapenem. May need amputation -wound vac placed, change today -Pt requesting BKA #Diabetes with hyperglycemia: -he takes 20 units Soquila, SSI -cont aggressive control #Hypothyroidism: -LT4 #Leukocytosis: -improved on IV abx. -Bld cultures negative thus far #Mesenteric mass: -IR biopsy 11/02 -path pending #ERIC on CKD: -Cr up to 1.6 now back to 1.3 -Hold Losartan, monitor vanc closely. -urine lytes stable #Parox atrial fib: -Dilt. long acting, cozaar -added 30mg short acting once 11/03 -resolved, NSR today -Restarted Xarelto 11/03 #Diet: diabetic #Disp: cont inpatient admission for IV abx, wound care Subjective: Feeling ok today. No new issues. Objective: Vital Signs Temp Pulse Resp BP Pulse Ox 36.9 C 66 18 140/72 H 93 11/05/17 12:07 11/05/17 12:07 11/05/17 12:07 11/05/17 12:07 11/05/17 12:07 Laboratory Results 11/03/17 05:12 11/05/17 11:45 11/04/17 11/05/17 11/06/17 05:59 05:59 05:59 Intake Total 200 1050 Output Total 1550 1750 Balance -1350 -700 PT 15.7 SEC (12.0-15.0) H 11/01/17 19:48 INR 1.23 (0.83-1.16) H 11/01/17 19:48 - Physical Exam Constitutional: no apparent distress, appears nourished, not in pain Eyes: PERRL, anicteric sclera Ears, Nose, Mouth, Throat: moist mucous membranes, hearing normal Cardiovascular: No JVD, No edema Respiratory: no respiratory distress, reduced air movement Gastrointestinal: No tenderness, No ascites Skin: warm, erythema Musculoskeletal: no joint effusions, generalized weakness Neurologic: AAOx3 Psychiatric: interacting appropriately, not anxious, not encephalopathic ICD10 Worksheet Patient Problems: Problems Problem Status Onset Osteomyelitis of toe of left foot Acute Diabetes type 2, uncontrolled Acute MRSA (methicillin resistant Staphylococcus aureus) Acute 02/19/16
--- NOTE | 2017-11-05 14:42 | ASMTCMCOM ---
CM Note CM Note Notes: CM spoke w/ Mely RN regarding d/c POC. CM spoke w/ La regarding d/c POC. Pt will most likely need a wound vac at time of d/c. Pt and family are having a care meeting tomorrow with tx team. Pt would like to have a below the knee amputation. CM will hold off on starting the [facility] wound vac application. CM to follow. Plan: TBD Date Signed: 11/05/2017 02:41 PM Electronically Signed By:POOJA Sevilla
[2017-11-05] MEDS: RIVAROXABAN 20 MG TAB PO SCH (17:34)
[2017-11-05] MEDS: LOSARTAN POTASSIUM 25 MG TAB PO SCH (20:10)
[2017-11-05] MEDS: LATANOPROST 0.005% 2.5 ML OPHT DROPS EACHEYE SCH (20:10)
[2017-11-05] MEDS: THYROID 60 MG TAB PO SCH (20:11)
[2017-11-06] MEDS: INSULIN LISPRO 100 UNIT/ML SC SCH ×3 (09:16→18:21)
[2017-11-06] MEDS: DILTIAZEM CD 120 MG CAP PO SCH (09:17)
[2017-11-06] MEDS: OMEGA-3 FATTY ACIDS 1,000 MG CAP PO SCH (09:17)
[2017-11-06] MEDS: CHOLECALCIFEROL VIT D3 1,000 UNITS TAB PO SCH (09:17)
[2017-11-06] MEDS: ERTAPENEM 1 GM VIAL IV SCH (09:18)
[2017-11-06] MEDS: SENNOSIDES/DOCUSATE SODIUM TAB PO SCH ×2 (10:06→20:48)
--- NOTE | 2017-11-06 13:13 | HOSPPROG ---
Hospitalist Progress Note Assessment/Plan: 57y male with foot pain and erythema. He presented with an acute on chronic diabetic foot infection as well as fevers. Today is my first encounter with the patient, chart reviewed. Met with the patient and his alongside with Dr Sweet and Dr Bermudez. #Right foot cellulitis, probable residual osteo: -post amputation of 4th and 5th toes -BC NGT -on Ertapenem -wound vac placed -He will need a BKA if he doesn't improve over the next two weeks -Dr Bermudez to order PICC line #Diabetes with hyperglycemia: -on sliding scale, has a long acting he takes at home #Hypothyroidism: -LT4 #Leukocytosis: -improved on IV abx. -Bld cultures negative thus far #Mesenteric mass: -IR biopsy 3/ -path pending -Dr Estrella here today for f/u -per patient and his , this is slow growing and he will f/u with Dr Estrella in the OP setting #ERIC on CKD: -Cr 1.1 #Parox atrial fib, in sinus rhythm during my evaluation -Dilt. long acting -added 30mg short acting once 3/3 -resolved, NSR today -Restarted Xarelto 3/3 -sees Dr Salcido in the OP setting #Diet: diabetic *Plan: Dr Sweet to change out wound vac tomorrow, Dr Bermudez to order PICC, will aim to dc tomorrow. Spoke with CM to see if they can give him resources in case he gets a BKA , left leg already had a BKA. Subjective: Jerrell has no c/o pain. Objective: Vital Signs Temp Pulse Resp BP Pulse Ox 36.7 C 72 18 122/98 H 94 11/06/17 12:01 11/06/17 12:01 11/06/17 12:01 11/06/17 12:01 11/05/17 22:53 Microbiology 10/31/17 15:50 Blood Culture - Final Blood 10/31/17 14:50 Blood Culture - Final Blood Laboratory Results 11/03/17 05:12 11/05/17 11:45 11/05/17 11/06/17 11/07/17 05:59 05:59 05:59 Intake Total 1050 1780 Output Total 1508 661 3413 Balance -700 980 -1300 PT 15.7 SEC (12.0-15.0) H 03/01/18 19:48 INR 1.23 (0.83-1.16) H 11/01/17 19:48 - Physical Exam Constitutional: appears nourished, chronically ill appearing Eyes: PERRL Ears, Nose, Mouth, Throat: hearing normal Cardiovascular: regular rate and rhythym Respiratory: no respiratory distress Gastrointestinal: normoactive bowel sounds Skin: warm, No normal color (pale) Neurologic: AAOx3 Psychiatric: interacting appropriately ICD10 Worksheet Patient Problems: Problems Problem Status Onset Osteomyelitis of toe of left foot Acute Diabetes type 2, uncontrolled Acute MRSA (methicillin resistant Staphylococcus aureus) Acute 02/19/16
[2017-11-06] MEDS ORDERED: ALTEPLASE 2 MG VIAL IVP PRN (14:56)
--- NOTE | 2017-11-06 15:39 | ASMTCMCOM ---
CM Note CM Note Notes: CM spoke w/ Elisa Ji NP regarding d/c POC. The goal is to hope that the wound improves. If it doesn't improve pt will do a BKA. CM met w/ pt for dispo planning. Pt would like to go to a boot camp for amputees. CM provided pt w/ resources for LTAC, [facility] and [facility]. Pt continues to be on ivabx. CM to follow. Plan: TBD Date Signed: 11/06/2017 03:38 PM Electronically Signed By:POOJA Sevilla
--- NOTE | 2017-11-06 15:49 | GCON ---
[f rep st] CONSULTATION ONCOLOGY CONSULTATION DATE OF CONSULTATION: 11/06/2017 REASON FOR CONSULTATION: New diagnosis of lymphoma. HISTORY OF PRESENT ILLNESS: The patient is a pleasant 57-year-old gentleman who is currently admitte d with a chronic right diabetic foot infection. The patient developed this infection in October. H e underwent a 4th and 5th toe amputation on October 28. Debridements revealed Enterococcus faecal is. Unfortunately, the patient has not had good healing and has exposed bone with osteomyelitis. He is c urrently on IV antibiotic therapy. In the outpatient setting, he had a CT angiogram of the aorta done prior to his toe amputation. This study revealed an ill-defined central mesenteric mass contiguous with the inferior aspect of the mid pancreatic body measuring 4.3 x 2.4 cm and 5 cm in craniocaudal dimension. There were prominent ret roperitoneal nodes noted including a 2 cm left periaortic node. There was a 1.3 x 2.1 cm right ingui nal node noted. The patient had an excisional biopsy of his right inguinal node which was nondiagnostic. He had a re cent CT-guided biopsy of his mesenteric mass. This revealed evidence of a low-grade non-Hodgkin lymp rosmery, likely representing a follicular lymphoma. It is present on only a minority of the specimen wi th the remaining portion of the specimen representing a reactive T-cell infiltrate. Flow cytometry r eveals a CD 19, CD 20, CD 10 positive population, which is cyclin D1 negative. Final pathology has n ot yet been resulted as additional stat tests are being done. The patient had an isolated episode of abdominal pain approximately 2 weeks ago, but has not had lead painter lilly abdominal symptoms. He has noted inguinal adenopathy. He has had intermittent nondrenching nigh t sweats. He denies weight loss. He is being treated with an extended 2-week course of antibiotic therapy, but if he does not improve, a [id number]-[id number]-[id number] amputation is planned on the right side. When seen this afternoon, he is accompani ed by his . PAST MEDICAL HISTORY: 1. Peripheral vascular disease. 2. Diabetic neuropathy. 3. Recent amputation of 4th and 5th toes, right foot. 4. Chronic kidney disease. 5. Hypothyroidism. 6. Biopsy of thyroid nodule (biopsy was reportedly benign). 7. Paroxysmal atrial fibrillation. 8. Diabetes mellitus. PAST SURGICAL HISTORY: 1. Left mdhpf-lsw-pzdf amputation. 2. Amputation of 4th and 5th toes on the right side. 3. Excisional biopsy of right inguinal node. 4. Right Achilles tendon surgery. SOCIAL HISTORY: The patient is . He lives in [place]. 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 He has 4 children . He does not drink alcohol. He does not use tobacco products. FAMILY MEDICAL HISTORY: Positive for a father with diabetes mellitus and coronary artery disease and a mother with COPD. ALLERGIES: Albuterol, penicillin, Cipro and linezolid. HOME MEDICATIONS: Include [place] Thyroid, omega-3 supplement, vitamin D supplements, diltiazem, Xala huitron eyedrops, lispro, Xarelto, and losartan. REVIEW OF SYSTEMS: As outlined above. Remainder of 10-point review of systems otherwise negative. PHYSICAL EXAMINATION: GENERAL: The patient is sitting comfortably in a chair. He is in no acute di stress. LYMPHATICS: There is no palpable submandibular, cervical or supraclavicular adenopathy, tho ugh there is some mild neck fullness. No axillary adenopathy. HEART: Regular without murmur. LUNG S: Clear bilaterally. ABDOMEN: Obese. Exam is somewhat limited by body habitus. Spleen is nonpal pable. I am unable to palpate any adenopathy in either inguinal region. EXTREMITIES: He is status post prior left [id number]-esp-[id number] amputation. He has a wound VAC in place on his right lower extremity. NEUROLOGIC: He is alert, oriented, and appropriate. DIAGNOSTIC DATA: CT and pathology results as outlined above. White count 9.9, hemoglobin 12.4, domi tocrit 37.5, platelet count is 378,000. Sodium 139, potassium 5.1, chloride 103, bicarb 23, BUN 29, creatinine 1.1. GFR greater than 60. IMPRESSION: 1. Mesenteric mass, likely representing low-grade follicular non-Hodgkin lymphoma. 2. Diabetic wound infection. The patient is a pleasant 57-year-old gentleman who appears to have an incidentally found follicular non-Hodgkin lymphoma. I was able to discuss his case with [facility] over the telephone. The final pathology report has not been resulted. However, the overall picture sugge sts a grade 1 follicular non-Hodgkin lymphoma. I discussed the diagnosis with the patient and his . He appears essentially asymptomatic from th is process and thus I do not believe he requires immediate treatment. I recommend completion staging as an outpatient with a PET scan. I will arrange for him to follow up with one of my partners here in [place] for this to be done. I will send quantitative immunoglobulins today to see if he has any associated hypogammaglobulinemia. In the background of his recent infection, certainly IVIG therapy could be considered if he did hav e hypogammaglobulinemia. The patient will complete an additional 2 weeks of IV antibiotic therapy, and if there is no improvem ent, Dr. Sweet plans a right lower extremity [id number] amputation. The patient and his asked multiple questions which were answered. Case was discussed with Dr. Sasha brooks. Total time for today's visit was approximately 45 minutes. /[id number]/MODL
--- NOTE | 2017-11-06 16:25 | PCMIDPN ---
Assessment/Plan: Assessment/Plan: * Right lower extremity cellulitis/possible residual osteomyelitis post amputation of 4th and 5th toes: Erythema continues to resolve. Wound bed improved in discussion with Dr. Sweet. Will plan 2 weeks of IV ertapenem with ongoing assessment over time. If has any clinical regression or progression during this time, then will undergo BKA. * Multiple antibiotic intolerances or allergies * Mesenteric mass: Preliminary biopsy findings consistent with follicular lymphoma. Appreciate Oncology consultation. Time spent, 30 min, of which greater than half was spent in education/counseling /coordination of care including meeting with patient, , Dr. Sweet, and Elisa Ji NP. Clinical findings and plan also discussed with Dr. Estrella. 11/06/17 16:23 Subjective: Patient complains of fatigue. Objective: Vital Signs Temp Pulse Resp BP Pulse Ox 37.0 C 80 18 96/77 L 92 11/06/17 15:06 11/06/17 15:06 11/06/17 15:06 11/06/17 15:06 11/06/17 15:06 Microbiology 10/31/17 15:50 Blood Culture - Final Blood 10/31/17 14:50 Blood Culture - Final Blood Laboratory Results 11/03/17 05:12 11/05/17 11:45 11/05/17 11/06/17 11/07/17 05:59 05:59 05:59 Intake Total 1050 1780 Output Total 4290 160 5577 Balance -700 980 -1300 Ertapenem # 7 - Physical Exam General Appearance: alert, no apparent distress EENT: No scleral icterus Extremities: inflammation (Right foot with significant decrease in erythema over dorsal aspect; wound VAC in place) ICD10 Worksheet Patient Problems: Problems Problem Status Onset Diabetes type 2, uncontrolled Acute MRSA (methicillin resistant Staphylococcus aureus) Acute 02/19/16 Osteomyelitis of toe of left foot Acute
--- NOTE | 2017-11-06 17:57 | SOAPPROG ---
SOAP Progress Note Assessment/Plan: Assessment/Plan: 57-year-old well-known to our service for L BKA and R diabetic foot wounds now s/p R 4th and 5th ray and met head amputations. Wound dehiscence - with palpable 4th met head in base of wound. Change vac tomorrow Traumatic hematoma R bean s/p excisional debridement - hydrofera blue ready change q3d IV antibiotics per ID DM management per hospitalists Mesenteric mass found incidentally on previous CTA - prelim path follicular lymphoma. Oncology consult today Dispo: care plan meeting today. Oncology consult, likely outpatient workup. Seen c Dr. Sweet. S: no new complaints this am. In good spirits O: pleasant man in NAD, Aixa at bedside No increased WOB RLE dressings intact, surrounding erythema subsided from marking, less intense Objective: Vital Signs Temp Pulse Resp BP Pulse Ox 37.0 C 80 18 96/77 L 92 11/06/17 15:06 11/06/17 15:06 11/06/17 15:06 11/06/17 15:06 11/06/17 15:06 Microbiology 10/31/17 15:50 Blood Culture - Final Blood 10/31/17 14:50 Blood Culture - Final Blood Laboratory Results 11/03/17 05:12 11/05/17 11:45 11/05/17 11/06/17 11/07/17 05:59 05:59 05:59 Intake Total 1050 1780 Output Total 3104 488 2245 Balance -700 980 -1300 PT 15.7 SEC (12.0-15.0) H 11/01/17 19:48 INR 1.23 (0.83-1.16) H 11/01/17 19:48 ICD10 Worksheet Patient Problems: Problems Problem Status Onset Diabetes type 2, uncontrolled Acute MRSA (methicillin resistant Staphylococcus aureus) Acute 02/19/16 Osteomyelitis of toe of left foot Acute
[2017-11-06] MEDS: RIVAROXABAN 20 MG TAB PO SCH (18:21)
[2017-11-06] MEDS: LATANOPROST 0.005% 2.5 ML OPHT DROPS EACHEYE SCH (20:49)
[2017-11-06] MEDS: THYROID 60 MG TAB PO SCH (20:50)
[2017-11-07] MEDS: LOSARTAN POTASSIUM 25 MG TAB PO SCH (01:06)
[2017-11-07 07:50] VITALS: BP 126/96; PULSE 64; RESP 18; TEMP 98.2; O2SAT 99
[2017-11-07] MEDS: INSULIN LISPRO 100 UNIT/ML SC SCH (08:17)
[2017-11-07] MEDS: ERTAPENEM 1 GM VIAL IV SCH (08:18)
[2017-11-07] MEDS: DILTIAZEM CD 120 MG CAP PO SCH (08:18)
[2017-11-07] MEDS: CHOLECALCIFEROL VIT D3 1,000 UNITS TAB PO SCH (08:19)
[2017-11-07] MEDS: OMEGA-3 FATTY ACIDS 1,000 MG CAP PO SCH (08:19)
--- NOTE | 2017-11-07 09:21 | HOSPPROG ---
Hospitalist Progress Note Assessment/Plan: 57y male with foot pain and erythema. He presented with an acute on chronic diabetic foot infection as well as fevers. #Right foot cellulitis, probable residual osteo: -post amputation of 4th and 5th toes -BC NGT -on Ertapenem -wound vac placed -He will need a BKA if he doesn't improve over the next two weeks - PICC line #Diabetes with hyperglycemia: -on sliding scale, has a long acting he takes at home #SHAKIR -diagnosed through a sleep study -has been hypoxic at night -order home o2 #Hypothyroidism: -LT4 #Leukocytosis: -improved on IV abx. -Bld cultures negative thus far #Mesenteric mass: -IR biopsy pathology shows findings c/w follicular lymphoma -path pending -Dr Estrella here today for f/u -per patient and his , this is slow growing and he will f/u with Dr Estrella in the OP setting #ERIC on CKD: -Cr 1.1 #Parox atrial fib, in sinus rhythm during my evaluation -Dilt. long acting -added 30mg short acting once 3/3 -resolved, NSR today -Restarted Xarelto 3/3 -sees Dr Salcido in the OP setting #Diet: diabetic *Plan:dc home with sales expert home theater, wound vac, home O2 Subjective: Jerrell is feeling well, anxious to go home. Objective: Vital Signs Temp Pulse Resp BP Pulse Ox 36.8 C 64 18 126/96 H 99 11/07/17 07:46 11/07/17 08:18 11/07/17 07:46 11/07/17 08:18 11/07/17 07:46 Microbiology 10/31/17 15:50 Blood Culture - Final Blood 10/31/17 14:50 Blood Culture - Final Blood Laboratory Results 11/03/17 05:12 11/05/17 11:45 11/06/17 11/07/17 11/08/17 05:59 05:59 05:59 Intake Total 1780 300 Output Total 800 2350 Balance 980 -2050 PT 15.7 SEC (12.0-15.0) H 11/01/17 19:48 INR 1.23 (0.83-1.16) H 11/01/17 19:48 - Physical Exam Constitutional: not in pain, chronically ill appearing Eyes: PERRL Ears, Nose, Mouth, Throat: hearing normal Cardiovascular: regular rate and rhythym Respiratory: no respiratory distress Skin: warm Musculoskeletal: generalized weakness Neurologic: AAOx3 Psychiatric: interacting appropriately ICD10 Worksheet Patient Problems: Problems Problem Status Onset Diabetes type 2, uncontrolled Acute MRSA (methicillin resistant Staphylococcus aureus) Acute 02/19/16 Osteomyelitis of toe of left foot Acute
--- NOTE | 2017-11-07 09:22 | PDHOMEO2F ---
Home Oxygen Face to Face Home Orders: I certify that a physician or a nurse practitioner or physician's elementary assistant teacher has had a loso-vg-lmhg encounter with this patient on the date of this order due to the diagnosis listed, which relates to the primary reason the patient requires home oxygen. Alternative treatments have been tried, or considered, and deemed ineffective. It is anticipated that supplemental oxygen will result in improvement with treatment. Home oxygen qualifying diagnosis: SHAKIR SpO2 on room air (%): 87% Frequency of home oxygen needed: during sleep Home oxygen liters per minute: 2 liters Home oxygen delivery device: nasal cannula Concentrator: Yes E-tanks for mobility and back up: No I certify that, based on these findings, the home oxygen is medically necessary for this patient for the following length of time. Length of time home oxygen needed: 99 years
--- NOTE | 2017-11-07 09:43 | PDIAF ---
- Diagnosis Diagnosis: Right foot cellulitis Code Status: Full Code - Medication Management Discharge Medications: Medications to Continue on Transfer Diltiazem Cd [Cardizem ER 120 MG (*)] 120 mg PO DAILY #30 cap 03/15/16 [Last Taken 10/31/17] Latanoprost 0.005% [Xalatan 0.005% (*)] 1 drops EACHEYE HS #1 opht.btl 03/15/16 [Last Taken 10/30/17] Rivaroxaban [Xarelto] 20 mg PO DAILY18 #30 tab 03/15/16 [Last Taken 10/30/17] Insulin Lispro [humALOG LISPRO 100 units/ml (*)] 8 unit SC TIDMEAL PRN 04/06/17 [Last Taken 10/30/17] Losartan Potassium [Cozaar 25 mg (*)] 25 mg PO HS 09/26/17 [Last Taken 10/30/17] Insulin Glargine/Lixisenatide [Soliqua 100 Unit-33 Mcg/ml Pen] 10 unit SQ HS [Last Taken 10/30/17] Cholecalciferol Vit D3 [Vitamin D3 (*)] 1,000 units PO DAILY 10/31/17 [Last Taken 10/30/17] [place]-3 Fatty Acids [Fish Oil 1000 mg (*)] 1,000 mg PO DAILY 10/31/17 [Last Taken 10/30/17] Thyroid,Pork [[place] Thyroid] 15 mg PO HS 10/31/17 [Last Taken 10/30/17] Residential Antibiotics: Ertapenem 1 g IV daily Juvenile Officer Antibiotic Stop Date: 11/20/17 Discharge Medications: Refer to the Discharge Home Medication list for PRN reason. PICC Care - Routine: Yes - Orders Services needed: Home Snf Care Face to Face: I certify that this patient was under my care and that I had the required nrxk-xm-zomk encounter meeting the encounter requirements on the discharge day. My findings support the fact that the patient is homebound as defined in Home Care Face to Face Continued: CMS Chapter 7 Medicare Benefits Manual 30.1.1 , The condition of the patient is such that there exists a normal inability to leave home and consequently, leaving home would require a considerable and taxing effort. Isolation Type: None - Labs/Radiology CBC w/diff Date: 11/12/17 (Weekly Q Sunday) CMP Date: 11/12/17 (Weekly Q Sunday) Call or Fax Lab and Imaging Results to: Dr. Bermudez, - Follow Up Care Current Providers and Referrals: NILSON DIEGO [Primary Care Provider] - Cristhian Bermudez MD [Medical Doctor] - 11/13/17 11:00 am
[2017-11-07] MEDS: SENNOSIDES/DOCUSATE SODIUM TAB PO SCH (10:06)
--- NOTE | 2017-11-07 10:46 | SOAPPROG ---
SOAP Progress Note Assessment/Plan: Assessment/Plan: 57-year-old well-known to our service for L BKA and R diabetic foot wounds now s/p R 4th and 5th ray and met head amputations. Wound dehiscence - with palpable 4th met head in base of wound (now covered). Vac change MWF Traumatic hematoma R bean s/p excisional debridement - hydrofera blue ready change q3d IV antibiotics per ID - PICC in place DM management per hospitalists Mesenteric mass found incidentally on previous CTA - prelim path follicular lymphoma. Oncology workup as outpatient Dispo: likely home today with wound vac and IV antibiotics. F/u Kee on sunday for vac change S: no new complaints this am. In good spirits O: pleasant man in NAD, Aixa at bedside No increased WOB RLE wound measures 1.5x2.2.1.1, no palpable bone, 33% healthy bleeding granulation tissue. Maceration periwound. Regular wound vac dressing reapplied. R bean wound dressings in place, had just been replaced by RN this am - will evaluate on sunday Objective: Vital Signs Temp Pulse Resp BP Pulse Ox 36.8 C 64 18 126/96 H 99 11/07/17 07:46 11/07/17 08:18 11/07/17 07:46 11/07/17 08:18 11/07/17 07:46 Microbiology 10/31/17 15:50 Blood Culture - Final Blood 10/31/17 14:50 Blood Culture - Final Blood Laboratory Results 11/03/17 05:12 11/05/17 11:45 11/06/17 11/07/17 11/08/17 05:59 05:59 05:59 Intake Total 1780 300 Output Total 800 2350 Balance 980 -2050 PT 15.7 SEC (12.0-15.0) H 11/01/17 19:48 INR 1.23 (0.83-1.16) H 11/01/17 19:48 ICD10 Worksheet Patient Problems: Problems Problem Status Onset Diabetes type 2, uncontrolled Acute MRSA (methicillin resistant Staphylococcus aureus) Acute 02/19/16 Osteomyelitis of toe of left foot Acute
[2017-11-07] MEDS ORDERED: LIDOCAINE 1% 300 MG/30 ML SDV ONE (11:02)
--- NOTE | 2017-11-07 11:34 | WOCRNPDOC ---
WOCRJoni Advanced Assessment Note - Skin Integrity Problem, Advanced Assess Right Distal Pedal Fifth Toe Surgical Wound/Incision Dressing Type: Black Vac Foam (vaughan veraflo x 2 pieces ), Wound Vac Dressing Description: Clean/Dry, Intact Exudate Amount: None Integumentary Issue Intervention: Dressing Changed Lana Wound Tissue: Macerated, Calloused Wound Bed Constitution: Granulation Tissue (30%), Adhered Slough (70%) Site Odor: Moderate, Pungent Skin Integrity Problem Comment: Cleaned with ns. Mastisol lana wound and then draped. One piece of black foam to wound bed and a second for trac landing pad. Suction restarted at-125 mm Hg continuous without leaks. Non bordered foam placed under tubing to protect patient's skin. La SARMIENTO visualized wound.
--- NOTE | 2017-11-07 11:36 | PDIAF ---
- Diagnosis Diagnosis: Right foot cellulitis Code Status: Full Code - Medication Management Discharge Medications: Medications to Continue on Transfer Diltiazem Cd [Cardizem ER 120 MG (*)] 120 mg PO DAILY #30 cap 03/15/16 [Last Taken 10/31/17] Latanoprost 0.005% [Xalatan 0.005% (*)] 1 drops EACHEYE HS #1 opht.btl 03/15/16 [Last Taken 10/30/17] Rivaroxaban [Xarelto] 20 mg PO DAILY18 #30 tab 03/15/16 [Last Taken 10/30/17] Insulin Lispro [humALOG LISPRO 100 units/ml (*)] 8 unit SC TIDMEAL PRN 04/06/17 [Last Taken 10/30/17] Losartan Potassium [Cozaar 25 mg (*)] 25 mg PO HS 09/26/17 [Last Taken 10/30/17] Insulin Glargine/Lixisenatide [Soliqua 100 Unit-33 Mcg/ml Pen] 10 unit SQ HS [Last Taken 10/30/17] Cholecalciferol Vit D3 [Vitamin D3 (*)] 1,000 units PO DAILY 10/31/17 [Last Taken 10/30/17] [place]-3 Fatty Acids [Fish Oil 1000 mg (*)] 1,000 mg PO DAILY 10/31/17 [Last Taken 10/30/17] Thyroid,Pork [ARMOUR THYROID] 15 mg PO HS 10/31/17 [Last Taken 10/30/17] Senior Care Antibiotics: Ertapenem 1 g IV daily Harness Fitter Antibiotic Stop Date: 11/20/17 Discharge Medications: Refer to the Discharge Home Medication list for PRN reason. PICC Care - Routine: Yes - Orders Services needed: Home Senior Care Care Face to Face: I certify that this patient was under my care and that I had the required naxu-ii-fjaz encounter meeting the encounter requirements on the discharge day. My findings support the fact that the patient is homebound as defined in Home Care Face to Face Continued: CMS Chapter 7 Medicare Benefits Manual 30.1.1 , The condition of the patient is such that there exists a normal inability to leave home and consequently, leaving home would require a considerable and taxing effort. Isolation Type: None Oxygen: 2 liters at night Diet Recommendation: ADA 1800 consistent carb Diet Texture: Regular Texture Diet - Labs/Radiology CBC w/diff Date: 11/12/17 (Weekly Q Sunday) CMP Date: 11/12/17 (Weekly Q Sunday) Call or Fax Lab and Imaging Results to: Dr. Bermudez, - Follow Up Care Current Providers and Referrals: NILSON DIEGO [Primary Care Provider] - Dasha Sweet MD [Medical Doctor] - 11/09/17 Cristhian Bermudez MD [Medical Doctor] - 11/13/17 11:00 am
--- NOTE | 2017-11-07 12:02 | GDS ---
[f rep st] DISCHARGE SUMMARY DISCHARGE DIAGNOSIS: 1. Right foot cellulitis, probably residual osteomyelitis. 2. Diabetes with hyperglycemia. 3. Obstructive sleep apnea. 4. Hypothyroidism. 5. Leukocytosis. 6. Mesenteric mass consistent with follicular lymphoma. 7. Acute kidney injury on chronic kidney disease. 8. Paroxysmal atrial fibrillation. CONSULTATIONS: 1. Dr. Cristhian Bermudez. 2. Dr. Dasha Sweet. BRIEF HISTORY: David Hughes is a 57-year-old gentleman with a history of diabetes, peripheral vas cular disease, and chronic right wound infection. He was directly admitted on 10/[address] Bermudez's office with fevers and rigors. He developed a right foot infection after a blister in October and u nderwent 4th and 5th ray amputation on 10/28/[address] Sweet. He also suffered a hit to the bean with a softball resulting in a wound. He has undergone debridement. He was seen in the clinic by Coral Bermudez and had a temperature of 101. He was admitted and treated for a right foot cellulitis. He h as been actively involved and seen by the surgical team. The goal is to try to avoid an amputation. If his infection does not improve over the next several weeks, he will be referred to the hospital f or an amputation, but this is a wait and see. HOSPITAL COURSE: 1. Right foot cellulitis, probable residual osteomyelitis. Blood culture showed no growth. He will be discharged on ertapenem. A wound VAC has been placed. Home care nurse will be seeing him. 2. Diabetes with hyperglycemia. Continue his regimen as done at home. 3. Obstructive sleep apnea. Respiratory therapy is working on getting him a sleep study at home at night so he can qualify for home use of oxygen. 4. Hypothyroidism, on Synthroid. 5. Leukocytosis, improved. 6. Mesenteric mass. The pathology shows findings consistent with a follicular lymphoma. He will fo llow up with Dr. Estrella in the outpatient setting. 7. Acute kidney injury on chronic kidney disease. Most recent creatinine is 1.1. 8. Paroxysmal atrial fibrillation. He has been in sinus rhythm since I have been taking care of him for the last 2 days. He has restarted Xarelto. He sees Dr. Bonnie Salcido in the outpatient setting. DISCHARGE CONDITION: Stable. Blood pressure is 126/96, heart rate is 64, respiratory rate is 18, O2 saturations on room air are 99%, temperature 36.8 Celsius. MEDICATIONS AT DISCHARGE: Please see the EMR. DISCHARGE INSTRUCTIONS: 1. To follow up with Dr. Bermudez, has an appointment scheduled. 2. To follow up with Dr. Sweet this Sunday to get his wound VAC change. 3. If he develops fever, chills, chest pain, worsening shortness of breath, return to the ER. TIME SPENT: Greater than 30 minutes discharging and coordinating the patient's care. /[id number]/MODL
--- NOTE | 2017-11-07 13:56 | ASMTLACE ---
LACE Length of stay for Answers: 7-13 days current admission Acuity / Level of Answers: Yes Care: Did the patient have an inpatient admission? Comorbidities - select Answers: Any tumor (including all that apply lymphoma or leukemia) Diabetes (uncontrolled or controlled) Peripheral vascular disease # of Emergency department Answers: 0 visits in the last 6 months Score: 12 Date Signed: 11/07/2017 01:55 PM Electronically Signed By:Anna Miller RN
--- NOTE | 2017-11-07 14:04 | ASDISCHSUM ---
Discharge Information Plan Status:IV ABX/Infusion Medically Cleared to Leave: Discharge Date:11/07/2017 12:35 PM CM D/C Disposition:Home Health Service ADT D/C Disposition:Home Health Service Projected Discharge Date:11/07/2017 11:00 AM Transportation at D/C:Family Discharge Delay Reason: Follow-Up Date:11/07/2017 11:00 AM Discharge Slot: Final Diagnosis: Placement Information Referral Type:Home Infusion Referral ID:[id number] Provider Name:[facility] [place] ([facility]) Address 1:[address] Address 2: City:[place] Selection Factors: State:[place] Patient Contact Information Contact Name:EPHRAIM Relationship: Address:[address] City:[place] Alternate Phone: State/Zip Code:[place] [address] Email: Financial Information Financial Class:HMO and PPO Plans Primary Plan Desc:LUCIO WIGGINS Primary Plan Number:[id number] Secondary Plan Desc: Secondary Plan Number: Assessment Information [facility] CM Progress Note CM Note CM Note Notes: Dc needs uncertain, pt lives at home w/. PT/OT still pending. Pt has hx of uncontrolled diabetes, CM w/f. DC Plan: TBD Date Signed: 11/01/2017 05:55 PM Electronically Signed By:Anna Miller RN [facility] CM Progress Note CM Note CM Note Notes: Pt was evaluated by PT and cleared for home. 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 At present pt has a wound vac, unclear if he will need one going home. CM will continue to follow. Date Signed: 11/02/2017 05:26 PM Electronically Signed By:Anna Miller RN [facility] Progress Note CM Note CM Note Notes: CM spoke w/ DANUTA Boone regarding d/c POC. CM spoke w/ La regarding d/c POC. Pt will most likely need a wound vac at time of d/c. Pt and family are having a care meeting tomorrow with tx team. Pt would like to have a below the knee amputation. CM will hold off on starting the [facility] wound vac application. CM to follow. Plan: TBD Date Signed: 11/05/2017 02:41 PM Electronically Signed By:POOJA Sevilla [facility] JOHN Progress Note CM Note CM Note Notes: CM spoke w/ Elisa Ji NP regarding d/c POC. The goal is to hope that the wound improves. If it doesn't improve pt will do a BKA. CM met w/ pt for dispo planning. Pt would like to go to a boot camp for amputees. CM provided pt w/ resources for LTAC, [facility] and [facility]. Pt continues to be on ivabx. CM to follow. Plan: TBD Date Signed: 11/06/2017 03:38 PM Electronically Signed By:POOJA Sevilla Case Management Discharge Plan Note Case Management Discharge Discharge Order Complete? Answers: Yes Patient to Obtain Answers: Other Notes: [facility] Medications Transportation Arranged Answers: Family/Friends Faxed Final Orders Answers: Yes Family Notified Answers: Yes Discharge Comments Notes: D/w PA and family, final orders faxed to [facility]. Pt will f/u Dr. Sweet, for dressing changes. Date Signed: 11/07/2017 01:50 PM Electronically Signed By:Anna Miller RN LACE LACE Length of stay for Answers: 7-13 days current admission Acuity / Level of Answers: Yes Care: Did the patient have an inpatient admission? Comorbidities - select Answers: Any tumor (including all that apply lymphoma or leukemia) Diabetes (uncontrolled or controlled) Peripheral vascular disease # of Emergency department Answers: 0 visits in the last 6 months Score: 12 Date Signed: 11/07/2017 01:55 PM Electronically Signed By:Anna Miller RN Intervention Information
== END 2017-11-07 12:35 | disposition home health service (06) | DRG 638 ==
LOC: F3E 13:45 → OBSVTOIN 13:56
PROVIDERS: ADMIT Internal Medicine; ATTEND Internal Medicine
PROC: 0DBV3ZX Excision of Mesentery, Percutaneous Approach, Diagnostic (ICD-10-PCS; 2017-11-02)
PROC: 02HV33Z Insertion of Infusion Device into Superior Vena Cava, Percutaneous Approach (ICD-10-PCS; principal; 2017-11-06)
DX: E11.69 Type 2 diabetes mellitus with other specified complication (principal); L03.115 Cellulitis of right lower limb; M86.671 Other chronic osteomyelitis, right ankle and foot; L97.319 Non-pressure chronic ulcer of right ankle with unspecified severity; C82.90 Follicular lymphoma, unspecified, unspecified site; E11.621 Type 2 diabetes mellitus with foot ulcer; N17.9 Acute kidney failure, unspecified; T87.81 Dehiscence of amputation stump; E11.40 Type 2 diabetes mellitus with diabetic neuropathy, unspecified; E11.65 Type 2 diabetes mellitus with hyperglycemia; G47.33 Obstructive sleep apnea (adult) (pediatric); E03.9 Hypothyroidism, unspecified; I12.9 Hypertensive chronic kidney disease with stage 1 through stage 4 chronic kidney disease, or unspecified chronic kidney disease; N18.9 Chronic kidney disease, unspecified; I48.0 Paroxysmal atrial fibrillation; E86.0 Dehydration; Z89.421 Acquired absence of other right toe(s); Z89.512 Acquired absence of left leg below knee; Z79.4 Long term (current) use of insulin
CPT/HCPCS: 82784-90; 88184-90; 88185-91; 97116-GP; 97161-GP; 97165-GO; 97530-GO; C1751; J1335; J1650; J1815; J2250; J2310; J3010; J3370

== ENCOUNTER → 2017-11-19 | Outpatient (CLI) | payer OTHER | LOC: FIMAGING 14:30 | PROVIDERS: ATTEND Nurse Practitioner | DX: R05 Cough (principal); R50.9 Fever, unspecified ==

== ENCOUNTER 2017-12-27 13:23 | Inpatient (IN) | payer OTHER ==
[2017-12-27] MEDS ORDERED: ALTEPLASE 2 MG VIAL IVP PRN (13:36)
[2017-12-27] MEDS ORDERED: oxyCODONE IR 5 MG TAB PO PRN (13:41)
[2017-12-27] MEDS ORDERED: ACETAMINOPHEN 325 MG TAB PO PRN (13:41)
[2017-12-27] MEDS ORDERED: ONDANSETRON 4 MG/2 ML VIAL IVP PRN (13:42)
--- NOTE | 2017-12-27 14:10 | GHP ---
[f rep st] HISTORY AND PHYSICAL DATE OF ADMISSION: 12/27/2017 CHIEF COMPLAINT: Right foot cellulitis. HISTORY OF PRESENT ILLNESS: The patient is a pleasant 57-year-old man who is status post left below- the-knee amputation. He developed gangrene of his 4th and 5th toes and I took him to the operating r oom for an amputation of the right 4th and 5th toes, metatarsal heads and I evacuated a traumatic hem atoma of his right bean. He healed the wound on his bean very well. [facility] and the wound has dramatically increased over the right 4th and 5th toes. He does continue to have erythema on his foot which waxes and wanes. He has also had fevers over the past week. He w as started on Augmentin by Dr. Bermudez on December 24. He does have chills. His pain continues to go up his calf. PAST MEDICAL HISTORY: Diabetes mellitus, atrial fibrillation, hypertension, obstructive sleep apnea, renal insufficiency, lymphoma. PAST SURGICAL HISTORY: Foot surgeries, toe amputations, jqbus-rqc-quqq amputation, left leg. ALLERGIES: Cephalosporin, ciprofloxacin, linezolid, vancomycin, allopurinol. MEDICATIONS: Augmentin, losartan, acetaminophen, Aleve, [place] Thyroid, diltiazem, Humalog, omega-3 fatty acids, Soliqua, vitamin D3, Xarelto, and latanoprost. FAMILY HISTORY: Significant for diabetes. SOCIAL HISTORY: He was previously in the . 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 He has never used tobacco product s. REVIEW OF SYSTEMS: Significant for decreased exercise tolerance, fatigue, weakness, fevers, chills. Otherwise, 10-point review of systems negative. PHYSICAL EXAMINATION: GENERAL: Pleasant, well-nourished, well-groomed man at visit with . HEEN T: Normocephalic. No gross hearing deficits. Mucous membranes moist. Pupils equal and round. No scleral icterus. LUNGS: Clear to auscultation bilaterally. No increased work of breathing. CARDIA C: Regular rate. He does have peripheral edema on the right foot. SKIN: The wound measures 2 x 2 x 0.2. Silver nitrate applied. Hydrofera Blue and a dressing applied. There is edema near the woun d. There is also erythema. NEUROLOGIC: Decreased sensation over foot. PSYCH: Mood and affect nor mal. IMPRESSION AND PLAN: The patient is a 57-year-old man with diabetes mellitus, history of left below- the-knee amputation and now amputation of 4th and 5th toes and metatarsal heads with delayed wound he aling on the right. We had a discussion with him about if he would like to proceed with right below- the-knee amputation as this has come up in numerous conversations. He is concerned that even if he h eals this, he will get a secondary wound from his foot rolling like he did previously, and then end u p with a tfwde-szh-ixnn amputation. We discussed that even with people who are fit with good muscle strength and are motivated, being a bilateral amputee can be very challenging. He is willing to take that risk. We discussed the utility of an MRI if it could find something that could be addressed to avoid an amputation. He is interested in proceeding with MRI. We will admit him and get a PICC nancy e placed. He is an extremely difficult stick and so, we will get a PICC line and then proceed with Amy OSUNA. We will then discuss about further surgical intervention. I will consult the hospitalists when he is admitted. /[id number]/MODL
[2017-12-27] MEDS ORDERED: LIDOCAINE 1% 300 MG/30 ML SDV ONE (14:47)
[2017-12-27 14:56] LABS: PLATELET COUNT 393 10^3/uL (150-400)
[2017-12-27 15:07] LABS: INR 1.73 (0.83-1.16); PROTIME(PATIENT) 20.4 SEC (12.0-15.0)
--- NOTE | 2017-12-27 16:33 | PDRADPN ---
Radiology Procedure Note Date of Procedure: 12/27/17 Radiologist: Oumar Hendrix Anesthesia: Local (Specify) Pre-op Diagnosis: infection Post-op Diagnosis: same Indication: abx detention Procedure: RUE DL PICC Finding(s): brachial access b/c basilic was chronically thrombosed. tip of picc at cavoatrial junction. ok to use Inf/Abcess present in the surg proc area at time of surgery?: No EBL: Minimal Complications: none
--- NOTE | 2017-12-27 16:42 | PCMIDPN ---
Assessment/Plan: Assessment/Plan: * Right lower extremity cellulitis: Persistent erythema despite Augmentin which was started on 12/24/2017. MRI scheduled for later today to assess for osteomyelitis or abscess. If either present, likely will proceed with BKA. If neither present, plan to proceed with 2 weeks of IV ertapenem. Will begin ertapenem given persistent cellulitis. Clinical findings and plan were reviewed with patient, spouse, and Dr. Sweet earlier today. 12/27/17 16:39 Subjective: Please see my [facility] note dated 12/24/2017 for details. Seen and with Dr. Sweet earlier today at her office with decision to admit for persistent right lower extremity cellulitis in need of IV antibiotic therapy and for further assessment with MRI. Continues to have fever and erythema over right foot. Diarrhea with Augmentin. Objective: Vital Signs Temp Pulse Resp BP Pulse Ox 36.8 C 75 18 139/85 H 94 12/27/17 13:50 12/27/17 13:50 12/27/17 13:50 12/27/17 13:50 12/27/17 13:50 Laboratory Results 12/27/17 14:48 12/27/17 14:48 ICD10 Worksheet Patient Problems: Problems Problem Status Onset Diabetes type 2, uncontrolled Acute MRSA (methicillin resistant Staphylococcus aureus) Acute 02/19/16 Osteomyelitis of toe of left foot Acute
[2017-12-27] MEDS ORDERED: GADOBUTROL 10 ML VIAL IVP ONE (16:54)
[2017-12-27] MEDS ORDERED: INSULIN LISPRO 100 UNIT/ML SC SCH (18:00)
[2017-12-27] MEDS: INSULIN LISPRO 100 UNIT/ML SC SCH (19:07)
[2017-12-27] MEDS: ERTAPENEM 1 GM VIAL IV SCH (20:15)
[2017-12-27] MEDS: Thyroid,Pork [Armour Thyroid] 15 MG PO SCH (20:26)
[2017-12-27] MEDS ORDERED: NS 1,000 ML IV SCH (21:00)
[2017-12-27] MEDS: INSULIN GLARGINE SQ SCH (21:02)
[2017-12-27] MEDS: LIXISENATIDE SQ SCH (21:02)
[2017-12-27] MEDS: LOSARTAN POTASSIUM 25 MG TAB PO SCH (21:02)
[2017-12-27] MEDS: LATANOPROST 0.005% 2.5 ML OPHT DROPS EACHEYE SCH (21:03)
--- NOTE | 2017-12-27 21:32 | GCON ---
[f rep st] CONSULTATION DATE OF CONSULTATION: 12/27/2017 HISTORY OF PRESENT ILLNESS: The patient is a pleasant 57-year-old gentleman with a history of diabetes and peripheral vascular disease with left BKA, who is being followed in the [facility]. He has also had a recent transmetatarsal amputation of his 4th and 5th toes secondary to infection. He has developed some redness over his additional toes, and was started on Augmentin. There was progressive redness, and so was admitted today. MRI is pending. When I spoke with the patient, he notes his blood sugar was 100, and decline throughout the day. He has been taking supplemental lispro in the afternoons with improvement in his blood sugars, and his A1c has fallen from 11 to 9. 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 He notes he has had fevers off and on for 2 months. REVIEW OF SYSTEMS: Complete 10-point review of systems conducted. Negative, except as except as noted in the HPI. PAST MEDICAL HISTORY: 1. Peripheral vascular disease. 2. Diabetic neuropathy. 3. Gangrene of the 4th and 5th toe status post amputation. 4. Left BKA. 5. Chronic kidney disease, hypothyroidism, thyroid nodule with negative biopsy , mesenteric mass, groin lymphadenopathy, paroxysmal atrial fibrillation, and diabetes. 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 He has 5 children. Denies alcohol, tobacco, or drugs. Father had diabetes and coronary artery disease. ALLERGIES: Allopurinol, penicillin, ciprofloxacin, on linezolid. MEDICATIONS: Augmentin, rivaroxaban, vitamin D3, diltiazem, glargine, lispro insulin, latanoprost, losartan, fish oil, pork thyroid. PHYSICAL EXAMINATION: VITAL SIGNS: Blood pressure 151/87, pulse 67, breathing 16 times a minute, 94% on room air, temp 36.8. GENERAL: No acute distress. HEENT: Sclerae anicteric. Oropharynx clear. Mucous membranes moist. NECK: Supple without lymphadenopathy or JVD. LUNGS: Clear to auscultation bilaterally. HEART: S1, S2. ABDOMEN: Soft, nontender, nondistended. EXTREMITIES: Left lower extremity is status post BKA with well-healed stump. His right foot is in a bandage. There is blood seeping through his [place]. NEUROLOGICAL: Nonfocal. SKIN: Otherwise without rash. LABORATORY DATA: White count 11, hematocrit 34, platelets are 393. INR is 1.7. Sodium 136, potassium 5.1, chloride 104, bicarb 21, BUN 33, creatinine 1.5. His baseline appears to be about 1.3. Glucose is 371. MRI is pending. I have discussed the case Dr. Dasha Sweet. ASSESSMENT/PLAN: This is a 57-year-old gentleman with diabetes, peripheral vascular disease with potential osteomyelitis of his metatarsal head on his right foot. 1. Potential osteomyelitis. The patient is being followed by Infectious Disease and Surgery, and MRI results are pending. It sounds like if he has osteomyelitis, then he may need amputation. 2. Diabetes. Blood sugars are poorly controlled here. He had has had some improvement, but it still has room to go. I have started him on his home dose of Lantus and lispro. We can up titrate from there. 3. Chronic kidney disease. He is above his baseline creatinine. I have written to give him some IV fluids. 4. Prophylaxis. Patient' is therapeutically anticoagulated, likely for stroke prophylaxis. I have taken the liberty of holding it in case he has need for surgery. This patient is a good candidate for VT prophylaxis as an inpatient. DISPOSITION: Inpatient status. Thank you for this consultation. Hospital Medicine will follow. /[id number]/MODL MTDD
[2017-12-28] MEDS: DILTIAZEM CD 120 MG CAP PO SCH (08:15)
[2017-12-28] MEDS: OMEGA-3 FATTY ACIDS 1,000 MG CAP PO SCH (08:15)
[2017-12-28] MEDS: CHOLECALCIFEROL VIT D3 1,000 UNITS TAB PO SCH (08:16)
[2017-12-28] MEDS: INSULIN LISPRO 100 UNIT/ML SC SCH ×3 (08:16→18:10)
[2017-12-28] MEDS: ERTAPENEM 1 GM VIAL IV SCH (08:18)
--- NOTE | 2017-12-28 13:41 | PCMIDPN ---
Assessment/Plan: Assessment: Evidence of osteomyelitis of the right foot on MRI. Patient is covered again with ertapenem. At this point he is deciding that he wishes to pursue a BKA on the right side. I am supportive of this decision. He will speak with Dr. Desean chilel about the particulars. In the meantime cover with ertapenem. Plan: 1. Continue monotherapy coverage with IV ertapenem. 2. Await surgical opinion. 12/28/17 13:39 Subjective: Patient is resting in his hospital bed. He denies any fevers or chills. No new complaints. Objective: Ertapenem # 2 Vital Signs Temp Pulse Resp BP Pulse Ox 36.9 C 65 15 155/88 H 97 12/28/17 11:21 12/28/17 11:21 12/28/17 11:21 12/28/17 11:21 12/28/17 11:21 Laboratory Results 12/27/17 14:48 12/27/17 14:48 12/27/17 12/28/17 12/29/17 05:59 05:59 05:59 Output Total 1300 Balance -1300 - Physical Exam General Appearance: WD/WN, alert, non-toxic Respiratory: lungs clear, normal breath sounds, No respiratory distress Cardiac/Chest: regular rate, rhythm, No tachycardia Extremities: non-tender, inflammation, erythema, No normal inspection Skin: normal color, warm/dry, No rash ICD10 Worksheet Patient Problems: Problems Problem Status Onset Diabetes type 2, uncontrolled Acute MRSA (methicillin resistant Staphylococcus aureus) Acute 02/19/16 Osteomyelitis of toe of left foot Acute
--- NOTE | 2017-12-28 13:58 | SOAPPROG ---
SOAP Progress Note Assessment/Plan: Assessment: To OR tomorrow am for R BKA NPO at midnight consent in chart therapeutic antibiotics hold anticoagulation will need inpatient rehab on discharge 12/28/17 14:00 Objective: Vital Signs Temp Pulse Resp BP Pulse Ox 36.9 C 65 15 155/88 H 97 12/28/17 11:21 12/28/17 11:21 12/28/17 11:21 12/28/17 11:21 12/28/17 11:21 Laboratory Results 12/27/17 14:48 12/27/17 14:48 12/27/17 12/28/17 12/29/17 05:59 05:59 05:59 Output Total 1300 Balance -1300 PT 20.4 SEC (12.0-15.0) H 12/27/17 14:48 INR 1.73 (0.83-1.16) H 12/27/17 14:48 ICD10 Worksheet Patient Problems: Problems Problem Status Onset Diabetes type 2, uncontrolled Acute MRSA (methicillin resistant Staphylococcus aureus) Acute 02/19/16 Osteomyelitis of toe of left foot Acute
--- NOTE | 2017-12-28 15:16 | HOSPPROG ---
Hospitalist Progress Note Assessment/Plan: 57 yo M with hx of DM/PVD s/p L BKA pw right foot cellulitis and osteomyelitis # cellulitis /osteomyelitis: on personal review of MrI of foot e/o abscess/osteo , MRI tib/fib without clear osteo. Gen surg/ID involved. On invanz. Ultimate plan is for amputation in am. Patient at peace with this decsion. # PVD: in setting of above # DM: with complications including nephropathy/neuropathy, control has been reasonable since arrival, continue SSI # CKD: at baseline, monitoring in post op setting # p afib: rate is good, continue op meds # hypothyroid: continue op meds # IP status, will need > 48 hours stay for eval/mgmt of above Patient new to my care. Old records reviewed and summarized as above. Subjective: no acute overnight events, Objective: Vital Signs Temp Pulse Resp BP Pulse Ox 36.9 C 65 15 155/88 H 97 12/28/17 11:21 12/28/17 11:21 12/28/17 11:21 12/28/17 11:21 12/28/17 11:21 Laboratory Results 12/27/17 14:48 12/27/17 14:48 12/27/17 12/28/17 12/29/17 05:59 05:59 05:59 Output Total 1300 Balance -1300 PT 20.4 SEC (12.0-15.0) H 12/27/17 14:48 INR 1.73 (0.83-1.16) H 12/27/17 14:48 awake alert nad anicteric op clear rrr no mrg cta b soft nt nd no cce warm dry left bka - Time Spent With Patient Time Spent with Patient: greater than 35 minutes Time Spent with Patient: Greater than 35 minutes spent on this patients care, greater than 50% of time spent counseling, educating, and coordinating care regarding the above mentioned plan. ICD10 Worksheet Patient Problems: Problems Problem Status Onset Diabetes type 2, uncontrolled Acute MRSA (methicillin resistant Staphylococcus aureus) Acute 02/19/16 Osteomyelitis of toe of left foot Acute
--- NOTE | 2017-12-28 15:41 | ASMTCMCOM ---
CM Note CM Note Notes: Pt admitted w/RLE cellulitis, r/o osteomyelitis, has hx of infections/metatarsal amp to RLE. He has been receiving home IV ABX's. Pt has hx of L BKA. He has had MRI, ID consult and followed by surgery. He will go for BKA tomorrow. Met w/pt to discuss. He lives at home w/, has good support. He has been to [facility] in pt rehab in past. Discussed w/[facility] who said the plan will be for inpt rehab again. Also notified Shyanne w/[facility] as he was current w/them. CM will follow up w/inpt rehab on Sunday. Date Signed: 12/28/2017 03:38 PM Electronically Signed By:Petra Miguel RN
--- NOTE | 2017-12-28 16:49 | PDMN ---
Medical Necessity Medical necessity: Patient meets inpatient criteria per PA note and MCG M-600 Osteomyelitis - 3 days - (awaiting R BKA for ongoing cellulitis/osteomyelitis per MRI; LOS will be > 2 midnights for BKA, ongoing IV antibiotics, pain management, PT/OT.)
[2017-12-28] MEDS: LATANOPROST 0.005% 2.5 ML OPHT DROPS EACHEYE SCH (21:27)
[2017-12-28] MEDS: INSULIN GLARGINE SQ SCH (21:27)
[2017-12-28] MEDS: LIXISENATIDE SQ SCH (21:27)
[2017-12-28] MEDS: LOSARTAN POTASSIUM 25 MG TAB PO SCH (21:27)
[2017-12-29] MEDS ORDERED: BUPIVACAINE 0.5% 30 ML SDV ONE ×2 (08:05→08:06)
[2017-12-29] MEDS ORDERED: MIDAZOLAM 2 MG/2 ML VIAL IVP ONE (08:13)
--- NOTE | 2017-12-29 08:13 | PDANEPAE ---
ANE History of Present Illness 57 yo for bka ANE Past Medical History - Cardiovascular History Hx Hypertension: Yes Hx Arrhythmias: Yes Hx Chest Pain: No Hx Coronary Artery / Peripheral Vascular Disease: No Hx CHF / Valvular Disease: No Hx Palpitations: No Cardiovascular History Comment: -afib (with sepsis from MRSA) off and on. - ocassional htn - Pulmonary History Hx COPD: No Hx Asthma/Reactive Airway Disease: No Hx Recent Upper Respiratory Infection: No Hx Oxygen in Use at Home: No Hx Sleep Apnea: Yes Sleep Apnea Screening Result - Last Documented: Positive Pulmonary History Comment: - states one MD told pt he has SHAKIR and another said he does not based off of same sleep study. -walking pna 09/2017 - Neurologic History Hx Cerebrovascular Accident: No Hx Seizures: No Hx Dementia: No Neurologic History Comment: Neuropathy all 4 extremities. - Endocrine History Hx Diabetes: Yes Endocrine History Comment: Type 2 diabetes-insulin and oral meds. - Renal History Hx Renal Disorders: Yes Renal History Comment: HX stones distant past. - Liver History Hx Hepatic Disorders: No - Neurological & Psychiatric Hx Hx Neurological and Psychiatric Disorders: No - Cancer History Hx Cancer: No - Congenital Disorder History Hx Congenital Disorders: No - GI History Hx Gastrointestinal Disorders: No - Other Health History Other Health History: Bilateral glaucoma. - Chronic Pain History Chronic Pain: Yes (leg wounds) - Surgical History Prior Surgeries: Arthroscope repair b/l ankles 2001. Left BKA 2015. Right foot toe amputation x2 09/2017 ANE Review of Systems Review of Systems: - Exercise capacity METS (RN): 3 METS ANE Patient History - Allergies Allergies/Adverse Reactions: allopurinol Allergy (Intermediate, Verified 10/30/17 18:53) gastric upset Penicillins Allergy (Intermediate, Verified 10/30/17 18:53) generalized itchiness; nausea ciprofloxacin HCl [From Cipro] Allergy (Verified 10/15/17 13:31) personality changes linezolid [From Zyvox] Allergy (Verified 10/15/17 13:31) suicidal and hallucinagenic - Home Medications Home medications: home medication list seen and reviewed Home Medications: Insulin Lispro [humALOG LISPRO 100 units/ml (*)] 18 - 20 unit SC TIDMEAL [Last Taken 12/26/17 18:00 18 UNITS] Losartan Potassium [Cozaar 25 mg (*)] 25 mg PO HS 09/26/17 [Last Taken 12/26/17] Insulin Glargine/Lixisenatide [Soliqua 100 Unit-33 Mcg/ml Pen] 20 unit SQ HS [Last Taken 12/26/17] Cholecalciferol Vit D3 [Vitamin D3 (*)] 1,000 units PO DAILY 10/31/17 [Last Taken 12/27/17] [place]-3 Fatty Acids [Fish Oil 1000 mg (*)] 1,000 mg PO DAILY 10/31/17 [Last Taken 12/27/17] Thyroid,Pork [ARMOUR THYROID] 15 mg PO HS 10/31/17 [Last Taken 12/26/17] Amoxicillin/Clavulanate Pot [Augmentin 875 MG TAB (*)] 875 mg PO BID 12/27/17 [ Last Taken 12/27/17] Rivaroxaban [Xarelto] 20 mg PO HS 12/27/17 [Last Taken 12/26/17] - NPO status NPO Since - Liquids (Date): 12/29/17 NPO Since - Liquids (Time): 00:01 NPO Since - Solids (Date): 12/29/17 NPO Since - Solids (Time): 00:01 - Smoking Hx Smoking Status: Never smoked - Family Anes Hx Family Hx Anesthesia Complications: none ANE Labs/Vital Signs - Labs Result Diagrams: 12/27/17 14:48 12/27/17 14:48 - Vital Signs Blood Pressure: 149/83 Heart Rate: 67 Respiratory Rate: 15 O2 Sat (%): 91 Height: 5 ft 4 in Weight: 96.978 kg ANE Physical Exam - Airway Neck exam: FROM Mallampati Score: Class 2 Mouth exam: normal dental/mouth exam - Pulmonary Pulmonary: no respiratory distress - Cardiovascular Cardiovascular: regular rate and rhythym - ASA Status ASA Status: III ANE Anesthesia Plan Anesthesia Plan: GA w [facility] Anesthesia: single shot NB
[2017-12-29] MEDS ORDERED: fentaNYL 250 MCG/5 ML INJ ONE (08:19)
[2017-12-29] MEDS ORDERED: PROPOFOL/EMULSION 500 MG/50 ML BOTTLE IV ONE (08:19)
[2017-12-29] MEDS ORDERED: MIDAZOLAM 2 MG/2 ML VIAL ONE (08:22)
[2017-12-29] MEDS ORDERED: BUPIVACAINE 0.25% 30 ML SDV ONE (08:22)
[2017-12-29] MEDS ORDERED: ONDANSETRON 4 MG/2 ML VIAL IVP PRN (10:20)
[2017-12-29] MEDS ORDERED: NALOXONE HCL 0.4 MG/ML INJ IVP PRN (10:20)
[2017-12-29] MEDS ORDERED: HYDROmorphONE/DILAUDID 1 MG/ML INJ IVP PRN (10:31)
[2017-12-29] MEDS: HYDROmorphONE/DILAUDID 2 MG/ML INJ IVP PRN ×4 (10:33→11:29)
--- NOTE | 2017-12-29 10:34 | POSTOPPROG ---
Post Op Note Date of Operation: 12/29/17 Surgeon: Dasha Sweet Anesthesiologist: ritesh Anesthesia: GET(General Endotracheal) Pre-op Diagnosis: R osteomylitis Post-op Diagnosis: same Indication: 57 yo with osteomylitis and chronic wound. elects for BKA Procedure: R BKA Inf/Abcess present in the surg proc area at time of surgery?: Yes Depth: Deep Incisional (Fascial) EBL: 100-500 Drains: Wound Vac Specimen(s): lower leg and foot
[2017-12-29] MEDS ORDERED: HYDROmorphONE/DILAUDID 2 MG/ML INJ ONE (10:35)
--- NOTE | 2017-12-29 10:47 | POSTANESTH ---
Post Anesthetic Evaluation Cardiovascular Status: Normal, Stable Respiratory Status: Similar to Pre-op Cond. Level of Consciousness/Mental Status: Can Participate in Eval Pain Control: Adequate, Prn Tx Ordered Nausea/Vomiting Control: Adequate, Prn Tx Ordered Complications Possibly Related to Anesthesia: None Noted
[2017-12-29] MEDS ORDERED: fentaNYL 100 MCG/2 ML INJ ONE (10:49)
[2017-12-29] MEDS: fentaNYL 100 MCG/2 ML INJ IVP PRN ×2 (10:50→10:56)
[2017-12-29] MEDS: HYDROmorphone HCL/NS 0.5 MG/ML SYR IVP PRN ×2 (12:07→15:03)
[2017-12-29] MEDS: CHOLECALCIFEROL VIT D3 1,000 UNITS TAB PO SCH (12:17)
[2017-12-29] MEDS: oxyCODONE IR 5 MG TAB PO PRN ×3 (12:17→21:38)
[2017-12-29] MEDS: DILTIAZEM CD 120 MG CAP PO SCH (12:17)
[2017-12-29] MEDS: INSULIN LISPRO 100 UNIT/ML SC SCH ×4 (12:18→17:38)
[2017-12-29] MEDS: Thyroid,Pork [Armour Thyroid] 15 MG PO SCH ×2 (12:19→12:35)
[2017-12-29] MEDS: ERTAPENEM 1 GM VIAL IV SCH (13:04)
[2017-12-29] MEDS: OMEGA-3 FATTY ACIDS 1,000 MG CAP PO SCH (13:04)
--- NOTE | 2017-12-29 16:16 | HOSPPROG ---
Hospitalist Progress Note Assessment/Plan: 57 yo M with hx of DM/PVD s/p L BKA pw right foot cellulitis and osteomyelitis # cellulitis /osteomyelitis: on personal review of MrI of foot e/o abscess/osteo , MRI tib/fib without clear osteo. Gen surg/ID involved. On invanz. Ultimate plan is for amputation in am. Patient at peace with this decsion. NPO after mn # PVD: in setting of above # DM: with complications including nephropathy/neuropathy, control has been reasonable since arrival, continue SSI # CKD: at baseline, monitoring in post op setting # p afib: rate is good, continue op meds # hypothyroid: continue op meds # IP status, will need > 48 hours stay for eval/mgmt of above Patient new to my care. Care plan reviewed with Gen surgery. Subjective: no significant overnight events, patient states he is ready for surgery in the am Objective: Vital Signs Temp Pulse Resp BP Pulse Ox 36.6 C 85 16 147/80 H 99 12/29/17 15:56 12/29/17 15:56 12/29/17 15:56 12/29/17 15:56 12/29/17 15:56 Laboratory Results 12/27/17 14:48 12/27/17 14:48 12/28/17 12/29/17 12/30/17 05:59 05:59 05:59 Intake Total 1000 440 Output Total 1300 600 Balance -1300 1000 -160 PT 20.4 SEC (12.0-15.0) H 12/27/17 14:48 INR 1.73 (0.83-1.16) H 12/27/17 14:48 awake alert nad anicteric op clear rrr no mrg cta b soft nt nd no cce warm dry left bka ICD10 Worksheet Patient Problems: Problems Problem Status Onset Diabetes type 2, uncontrolled Acute MRSA (methicillin resistant Staphylococcus aureus) Acute 02/19/16 Osteomyelitis of toe of left foot Acute
--- NOTE | 2017-12-29 16:16 | HOSPPROG ---
Hospitalist Progress Note Assessment/Plan: 57 yo M with hx of DM/PVD s/p L BKA pw right foot cellulitis and osteomyelitis # cellulitis /osteomyelitis: on personal review of MrI of foot e/o abscess/osteo , MRI tib/fib without clear osteo. Gen surg/ID involved. On invanz. Ultimate plan is for amputation in am. Patient at peace with this decsion. NPO after mn # PVD: in setting of above # DM: with complications including nephropathy/neuropathy, control has been reasonable since arrival, continue SSI # CKD: at baseline, monitoring in post op setting # p afib: rate is good, continue op meds # hypothyroid: continue op meds # IP status, will need > 48 hours stay for eval/mgmt of above Patient new to my care. Care plan reviewed with Gen surgery. Objective: Vital Signs Temp Pulse Resp BP Pulse Ox 36.6 C 85 16 147/80 H 99 12/29/17 15:56 12/29/17 15:56 12/29/17 15:56 12/29/17 15:56 12/29/17 15:56 Laboratory Results 12/27/17 14:48 12/27/17 14:48 12/28/17 12/29/17 12/30/17 05:59 05:59 05:59 Intake Total 1000 440 Output Total 1300 600 Balance -1300 1000 -160 PT 20.4 SEC (12.0-15.0) H 12/27/17 14:48 INR 1.73 (0.83-1.16) H 12/27/17 14:48 ICD10 Worksheet Patient Problems: Problems Problem Status Onset Diabetes type 2, uncontrolled Acute MRSA (methicillin resistant Staphylococcus aureus) Acute 02/19/16 Osteomyelitis of toe of left foot Acute
--- NOTE | 2017-12-29 16:20 | HOSPPROG ---
Hospitalist Progress Note Assessment/Plan: 57 yo M with hx of DM/PVD s/p L BKA pw right foot cellulitis and osteomyelitis # cellulitis /osteomyelitis: on personal review of MrI of foot e/o abscess/osteo , MRI tib/fib without clear osteo. Gen surg/ID involved. s/p amputation this am. Pain control has been an issue but otherwise doing well, sleepy. # PVD: in setting of above # DM: with complications including nephropathy/neuropathy, control has been reasonable since arrival, continue SSI # CKD: at baseline, monitoring in post op setting # p afib: rate is good, continue op meds # hypothyroid: continue op meds # IP status, will need > 48 hours stay for eval/mgmt of above Further hx obtained from patients family present at bedside. Subjective: s/p amputation this am, pain was initially quite severe after surgery but is improved with better pain control Objective: Vital Signs Temp Pulse Resp BP Pulse Ox 36.6 C 85 16 147/80 H 99 12/29/17 15:56 12/29/17 15:56 12/29/17 15:56 12/29/17 15:56 12/29/17 15:56 Laboratory Results 12/27/17 14:48 12/27/17 14:48 12/28/17 12/29/17 12/30/17 05:59 05:59 05:59 Intake Total 1000 440 Output Total 1300 600 Balance -1300 1000 -160 PT 20.4 SEC (12.0-15.0) H 12/27/17 14:48 INR 1.73 (0.83-1.16) H 12/27/17 14:48 awake alert nad anicteric op clear rrr no mrg cta b soft nt nd no cce warm dry left bka ICD10 Worksheet Patient Problems: Problems Problem Status Onset Diabetes type 2, uncontrolled Acute MRSA (methicillin resistant Staphylococcus aureus) Acute 02/19/16 Osteomyelitis of toe of left foot Acute
[2017-12-29] MEDS: LOSARTAN POTASSIUM 25 MG TAB PO SCH (21:16)
[2017-12-29] MEDS: LATANOPROST 0.005% 2.5 ML OPHT DROPS EACHEYE SCH (21:17)
[2017-12-29] MEDS: INSULIN GLARGINE SQ SCH (21:18)
[2017-12-29] MEDS: LIXISENATIDE SQ SCH (21:18)
[2017-12-30] MEDS: oxyCODONE IR 5 MG TAB PO PRN ×5 (02:05→22:02)
[2017-12-30 04:55] LABS: PLATELET COUNT 361 10^3/uL (150-400)
[2017-12-30] MEDS ORDERED: PHYTONADIONE 10 MG in NS (SYRINGE) 50 ML IV ONE (08:10)
[2017-12-30] MEDS: INSULIN LISPRO 100 UNIT/ML SC SCH ×3 (09:26→19:15)
[2017-12-30] MEDS: ERTAPENEM 1 GM VIAL IV SCH (09:33)
[2017-12-30] MEDS: DILTIAZEM CD 120 MG CAP PO SCH (09:36)
[2017-12-30] MEDS: OMEGA-3 FATTY ACIDS 1,000 MG CAP PO SCH (09:36)
[2017-12-30] MEDS: CHOLECALCIFEROL VIT D3 1,000 UNITS TAB PO SCH (09:36)
[2017-12-30] MEDS: Thyroid,Pork [Armour Thyroid] 15 MG PO SCH (10:05)
[2017-12-30] MEDS: HYDROmorphone HCL/NS 0.5 MG/ML SYR IVP PRN (10:05)
--- NOTE | 2017-12-30 11:58 | SOAPPROG ---
SOAP Progress Note Assessment/Plan: Assessment: rt bka wound ok with vac in place afebrile comfortable Plan:continue vac 12/30/17 11:57 Objective: Vital Signs Temp Pulse Resp BP Pulse Ox 36.6 C 69 16 117/68 99 12/30/17 11:14 12/30/17 11:14 12/30/17 11:14 12/30/17 11:14 12/30/17 11:14 Laboratory Results 12/30/17 04:35 12/30/17 04:35 12/29/17 12/30/17 12/31/17 05:59 05:59 05:59 Intake Total 1000 1340 Output Total 2150 400 Balance 1000 -810 -400 PT 20.4 SEC (12.0-15.0) H 12/27/17 14:48 INR 1.73 (0.83-1.16) H 12/27/17 14:48 ICD10 Worksheet Patient Problems: Problems Problem Status Onset Diabetes type 2, uncontrolled Acute MRSA (methicillin resistant Staphylococcus aureus) Acute 02/19/16 Osteomyelitis of toe of left foot Acute
--- NOTE | 2017-12-30 15:16 | HOSPPROG ---
Hospitalist Progress Note Assessment/Plan: 57 yo M with hx of DM/PVD s/p L BKA pw right foot cellulitis and osteomyelitis # cellulitis /osteomyelitis: on personal review of MRI of foot e/o abscess/osteo , MRI tib/fib without clear osteo. Gen surg/ID involved. Patient is now s/p R BKA. Pain control has been improved but not perfect, still requiring IV pain meds. # PVD: in setting of above # DM: with complications including nephropathy/neuropathy, control has been reasonable since arrival, continue SSI # CKD: at baseline, monitoring in post op setting # p afib: rate is good, continue op meds # hypothyroid: continue op meds # IP status, will need > 48 hours stay for eval/mgmt of above High risk requiring IV pain medication Subjective: no significant overnight events, patient notes that pain has been an issue, particularly that pain meds wear off before he is due to have more Objective: Vital Signs Temp Pulse Resp BP Pulse Ox 36.6 C 68 16 130/77 H 99 12/30/17 15:11 12/30/17 15:11 12/30/17 15:11 12/30/17 15:11 12/30/17 15:11 Laboratory Results 12/30/17 04:35 12/30/17 04:35 12/29/17 12/30/17 12/31/17 05:59 05:59 05:59 Intake Total 1000 1340 Output Total 2150 400 Balance 1000 -810 -400 PT 20.4 SEC (12.0-15.0) H 12/27/17 14:48 INR 1.73 (0.83-1.16) H 12/27/17 14:48 awake alert nad anicteric op clear rrr no mrg cta b soft nt nd no cce warm dry left bka right bka with wound vac in place ICD10 Worksheet Patient Problems: Problems Problem Status Onset Diabetes type 2, uncontrolled Acute MRSA (methicillin resistant Staphylococcus aureus) Acute 02/19/16 Osteomyelitis of toe of left foot Acute
--- NOTE | 2017-12-30 15:51 | PCMIDPN ---
Assessment/Plan: 1. Postop day 2 status post right BKA: Doing very well. Will continue ertapenem for another 5 days, to complete 7 days postoperatively as patient had discussed with Dr. Huertas. Subjective: No complaints. Feeling good. Showing me all of the pictures on his phone of his infection of the right lower extremity prior to amputation. Objective: Ertapenem 1 g IV daily stop date January 04 Afebrile Vital Signs Temp Pulse Resp BP Pulse Ox 36.6 C 68 16 130/77 H 99 12/30/17 15:11 12/30/17 15:11 12/30/17 15:11 12/30/17 15:11 12/30/17 15:11 Laboratory Results 12/30/17 04:35 12/30/17 04:35 12/29/17 12/30/17 12/31/17 05:59 05:59 05:59 Intake Total 1000 1340 Output Total 2150 400 Balance 1000 -810 -400 No microbiology - Physical Exam General Appearance: no apparent distress, obese EENT: pharynx normal, No thrush Respiratory: lungs clear Extremities: other (Right BKA stump with wound VAC in place. No erythema or tenderness. PICC line right upper extremity looks fine.) Skin: No rash ICD10 Worksheet Patient Problems: Problems Problem Status Onset Diabetes type 2, uncontrolled Acute MRSA (methicillin resistant Staphylococcus aureus) Acute 02/19/16 Osteomyelitis of toe of left foot Acute
[2017-12-30] MEDS: LATANOPROST 0.005% 2.5 ML OPHT DROPS EACHEYE SCH (22:01)
[2017-12-30] MEDS: LOSARTAN POTASSIUM 25 MG TAB PO SCH (22:03)
[2017-12-30] MEDS: INSULIN GLARGINE SQ SCH (22:05)
[2017-12-30] MEDS: LIXISENATIDE SQ SCH (22:05)
[2017-12-30] MEDS ORDERED: diphenhydrAMINE 25 MG CAP PO PRN (22:38)
[2017-12-31] MEDS: Thyroid,Pork [Armour Thyroid] 15 MG PO SCH (09:37)
[2017-12-31] MEDS: CHOLECALCIFEROL VIT D3 1,000 UNITS TAB PO SCH (09:38)
[2017-12-31] MEDS: OMEGA-3 FATTY ACIDS 1,000 MG CAP PO SCH (09:38)
[2017-12-31] MEDS: DILTIAZEM CD 120 MG CAP PO SCH (09:38)
[2017-12-31] MEDS: oxyCODONE IR 5 MG TAB PO PRN ×3 (09:42→16:10)
[2017-12-31] MEDS: ERTAPENEM 1 GM VIAL IV SCH (09:48)
[2017-12-31] MEDS: INSULIN LISPRO 100 UNIT/ML SC SCH ×3 (11:06→18:33)
--- NOTE | 2017-12-31 11:30 | ASMTCMCOM ---
CM Note CM Note Notes: CM spoke w/ Dr. Newman regarding d/c POC. Pt is medically stable to go whenever there is a bed available at inpatient rehab. CM spoke w/ Keke Greenfield and relay the message. Keke reports that she will work on getting auth from [employer] as soon as OT works w/ pt and puts in their recommendations. CM to follow. Plan: Inpatient rehab Date Signed: 12/31/2017 11:29 AM Electronically Signed By:POOJA Sevilla
[2017-12-31] MEDS ORDERED: D50W 25 GM/50 ML SYR IVP PRN (11:41)
[2017-12-31] MEDS ORDERED: BISACODYL 10 MG SUPP PR PRN (11:42)
[2017-12-31] MEDS ORDERED: LACTULOSE 20 GM/30 ML UDCUP PO PRN (11:42)
[2017-12-31] MEDS ORDERED: POLYETHYLENE GLYCOL 3350 17 GM PKT PO PRN (11:42)
[2017-12-31] MEDS ORDERED: MAGNESIUM HYDROXIDE 30 ML UDCUP PO PRN (11:42)
[2017-12-31] MEDS: HYDROmorphone HCL/NS 0.5 MG/ML SYR IVP PRN (14:28)
--- NOTE | 2017-12-31 16:34 | SOAPPROG ---
SOAP Progress Note Assessment/Plan: Assessment/Plan: 57yo M POD#2 s/p R BKA. Previous L BKA Pain control an issue over the weekend, but significantly improved today Incisional wound vac OK to restart Xarelto from surgical standpoint IV antibiotics per ID Comorbidities managed by hospitalists PT/OT Dispo: dc to inpatient rehab when cleared by therapy, 1-2 days S: feeling well this am, pain better controlled. issue with [place] overnight resolved by reinforcement with drape O: Laying in bed, comfortable, NAD No increased WOB RLE wound vac intact to suction, no fluid in canister. Min swelling of RLE residual limb, nontender. No erythema or ecchymosis. Objective: Vital Signs Temp Pulse Resp BP Pulse Ox 36.8 C 68 18 113/60 96 12/31/17 08:00 12/31/17 09:38 12/31/17 08:00 12/31/17 09:38 12/31/17 08:00 Laboratory Results 12/30/17 04:35 12/30/17 04:35 12/30/17 12/31/17 01/01/18 05:59 05:59 05:59 Intake Total 1340 1500 Output Total 2150 950 Balance -810 550 PT 20.4 SEC (12.0-15.0) H 12/27/17 14:48 INR 1.73 (0.83-1.16) H 12/27/17 14:48 ICD10 Worksheet Patient Problems: Problems Problem Status Onset Diabetes type 2, uncontrolled Acute MRSA (methicillin resistant Staphylococcus aureus) Acute 02/19/16 Osteomyelitis of toe of left foot Acute
--- NOTE | 2017-12-31 17:37 | PCMIDPN ---
Assessment/Plan: Assessment/Plan: * Right lower extremity cellulitis/diabetic foot infection now status post BKA: Given source of infection has been removed, think can truncate antibiotic therapy to 3 days postoperatively which he has now completed. He has tolerated antibiotics poorly previously from a side effect standpoint. Therefore, will stop further ertapenem and observe off antibiotics. 12/31/17 17:34 Subjective: Patient complains of postoperative pain. Notes that he is irritable. Evaluation underway for [place]. Objective: Vital Signs Temp Pulse Resp BP Pulse Ox 36.8 C 61 18 104/57 L 98 12/31/17 16:00 12/31/17 16:00 12/31/17 16:00 12/31/17 16:00 12/31/17 16:00 Laboratory Results 12/30/17 04:35 12/30/17 04:35 12/30/17 12/31/17 01/01/18 05:59 05:59 05:59 Intake Total 1340 1500 Output Total 2150 950 Balance -810 550 Ertapenem # 5 - Physical Exam General Appearance: alert, no apparent distress EENT: No scleral icterus, No thrush Respiratory: lungs clear, No respiratory distress Cardiac/Chest: regular rate, rhythm Extremities: inflammation (BKA site without surrounding erythema or tenderness) - Line/s RUE PICC Lines: No drainage, No erythema ICD10 Worksheet Patient Problems: Problems Problem Status Onset Diabetes type 2, uncontrolled Acute MRSA (methicillin resistant Staphylococcus aureus) Acute 02/19/16 Osteomyelitis of toe of left foot Acute
--- NOTE | 2017-12-31 18:43 | HOSPPROG ---
Hospitalist Progress Note Assessment/Plan: 57 yo M with hx of DM/PVD s/p L BKA pw right foot cellulitis and osteomyelitis # cellulitis /osteomyelitis: with chronic lower extremity wounds 2/2 PVD/DM. MRI of right foot w/ e/o abscess/osteo and now s/p R BKA with wound vac in place. Pain control has been improved but not perfect, still requiring IV pain meds. # PVD: in setting of above # DM: with complications including nephropathy/neuropathy, control has been reasonable since arrival, continue SSI # CKD: at baseline # p afib: rate is good, continue op meds # hypothyroid: continue op meds # IP status, will need > 48 hours stay for eval/mgmt of above High risk requiring IV pain medication Subjective: no significant overnight events, patient still with pain but notes it is relatively well controlled Objective: Vital Signs Temp Pulse Resp BP Pulse Ox 36.8 C 61 18 104/57 L 98 12/31/17 16:00 12/31/17 16:00 12/31/17 16:00 12/31/17 16:00 12/31/17 16:00 Laboratory Results 12/30/17 04:35 12/30/17 04:35 12/30/17 12/31/17 01/01/18 05:59 05:59 05:59 Intake Total 1340 1500 10 Output Total 2150 950 800 Balance -810 550 -790 PT 20.4 SEC (12.0-15.0) H 12/27/17 14:48 INR 1.73 (0.83-1.16) H 12/27/17 14:48 awake alert nad anicteric op clear rrr no mrg cta b soft nt nd no cce warm dry left bka right bka with wound vac in place ICD10 Worksheet Patient Problems: Problems Problem Status Onset Osteomyelitis of toe of left foot Acute Diabetes type 2, uncontrolled Acute MRSA (methicillin resistant Staphylococcus aureus) Acute 02/19/16
[2017-12-31] MEDS ORDERED: RIVAROXABAN 20 MG TAB PO SCH (21:00)
[2017-12-31] MEDS ORDERED: MELATONIN 3 MG TAB PO PRN (21:21)
--- NOTE | 2017-12-31 21:24 | HOSPPROG ---
Hospitalist Progress Note Assessment/Plan: The patient's nurse called me this evening stating that the patient was complaining of feeling off. I went to evaluate the patient talk with him. He states that his glucose levels at home due runs significantly higher than 2 here in the hospital. I reviewed his recent glucose readings and they appear reasonably well controlled mostly in the 100 to low 200s. Patient states that he often runs in the 2 and 300 at home. We did discuss that this does reflect relatively poor control. Patient states he also took Benadryl last evening. I suspect he may be feeling symptoms related to having glucose levels running lower than what he is used to. There may be also be some effect from Benadryl as well. I replaced the Benadryl with melatonin and recommended that we hold any sliding scale insulin this evening and then reassess tomorrow morning. On exam I did not appreciate any findings suggestive of an acute stroke. The patient is not having any headache complaints so I deferred any imaging studies. Objective: Vital Signs Temp Pulse Resp BP Pulse Ox 36.6 C 61 16 105/56 L 98 12/31/17 20:02 12/31/17 20:02 12/31/17 20:02 12/31/17 20:02 12/31/17 20:02 Laboratory Results 12/30/17 04:35 12/30/17 04:35 12/30/17 12/31/17 01/01/18 05:59 05:59 05:59 Intake Total 1340 1500 10 Output Total 2150 950 800 Balance -810 550 -790 PT 20.4 SEC (12.0-15.0) H 12/27/17 14:48 INR 1.73 (0.83-1.16) H 12/27/17 14:48 ICD10 Worksheet Patient Problems: Problems Problem Status Onset Diabetes type 2, uncontrolled Acute MRSA (methicillin resistant Staphylococcus aureus) Acute 02/19/16 Osteomyelitis of toe of left foot Acute
[2017-12-31] MEDS: LIXISENATIDE SQ SCH (22:01)
[2017-12-31] MEDS: SENNOSIDES/DOCUSATE SODIUM TAB PO SCH (22:01)
[2017-12-31] MEDS: LATANOPROST 0.005% 2.5 ML OPHT DROPS EACHEYE SCH (22:01)
[2017-12-31] MEDS: INSULIN GLARGINE SQ SCH (22:01)
[2018-01-01] MEDS: LOSARTAN POTASSIUM 25 MG TAB PO SCH ×2 (00:45→20:54)
[2018-01-01] MEDS: INSULIN LISPRO 100 UNIT/ML SC SCH ×3 (08:22→18:32)
[2018-01-01 08:40] LABS: PLATELET COUNT 326 10^3/uL (150-400)
[2018-01-01] MEDS ORDERED: NS 1,000 ML IV SCH (09:00)
[2018-01-01] MEDS: CHOLECALCIFEROL VIT D3 1,000 UNITS TAB PO SCH (09:51)
[2018-01-01] MEDS: OMEGA-3 FATTY ACIDS 1,000 MG CAP PO SCH (09:51)
[2018-01-01] MEDS: SENNOSIDES/DOCUSATE SODIUM TAB PO SCH ×2 (09:51→20:53)
[2018-01-01] MEDS: Thyroid,Pork [Armour Thyroid] 15 MG PO SCH (09:59)
[2018-01-01] MEDS: HYDROmorphone HCL/NS 0.5 MG/ML SYR IVP PRN (10:00)
[2018-01-01] MEDS: DILTIAZEM CD 120 MG CAP PO SCH (10:06)
--- NOTE | 2018-01-01 10:14 | SOAPPROG ---
SOAP Progress Note Assessment/Plan: Assessment/Plan: 57yo M POD#3 s/p R BKA. Previous L BKA Pain control an issue over the weekend, but significantly improved today Incisional wound vac Home Xarelto IV antibiotics per ID Comorbidities managed by hospitalists PT/OT Dispo: dc to inpatient rehab when cleared by therapy. Seen c Dr. Sweet. S: [place] "off" last night, thought to be due to his blood sugar. Will address with hospitalists. Pain controlled, hasn't taken Rx since yesterday afternoon at 3. O: Laying in bed, comfortable, NAD No increased WOB RLE wound vac intact to suction, no fluid in canister. Min swelling of RLE residual limb, nontender. No erythema or ecchymosis. Objective: Vital Signs Temp Pulse Resp BP Pulse Ox 37.1 C 76 16 135/73 H 98 01/01/18 07:29 01/01/18 07:29 01/01/18 07:29 01/01/18 07:29 01/01/18 07:29 Laboratory Results 01/01/18 08:30 01/01/18 05:30 12/31/17 01/01/18 01/02/18 05:59 05:59 05:59 Intake Total 1500 835 500 Output Total 950 1400 675 Balance 550 -565 -175 PT 20.4 SEC (12.0-15.0) H 12/27/17 14:48 INR 1.73 (0.83-1.16) H 12/27/17 14:48 ICD10 Worksheet Patient Problems: Problems Problem Status Onset Diabetes type 2, uncontrolled Acute MRSA (methicillin resistant Staphylococcus aureus) Acute 02/19/16 Osteomyelitis of toe of left foot Acute
[2018-01-01] MEDS: oxyCODONE IR 5 MG TAB PO PRN ×2 (11:40→20:53)
--- NOTE | 2018-01-01 16:03 | HOSPPROG ---
Hospitalist Progress Note Assessment/Plan: 57 yo M with hx of DM/PVD s/p L BKA pw right foot cellulitis and osteomyelitis # cellulitis /osteomyelitis: with chronic lower extremity wounds 2/2 PVD/DM. MRI of right foot w/ e/o abscess/osteo and now s/p R BKA with wound vac in place. Pain control has been improved but patient now a bit somnolent, will continue to titrate. # PVD: in setting of above # DM: with complications including nephropathy/neuropathy, control has been reasonable since arrival, continue SSI # CKD: at baseline # p afib: rate is good, continue op meds # hypothyroid: continue op meds # IP status, will need > 48 hours stay for eval/mgmt of above--likely dc to IP rehab in coming 1-2 days Subjective: no significant overnight events, patient states his pain is better controlled but now a bit somnolent Objective: Vital Signs Temp Pulse Resp BP Pulse Ox 37.1 C 76 16 135/73 H 98 01/01/18 07:29 01/01/18 07:29 01/01/18 07:29 01/01/18 07:29 01/01/18 07:29 Laboratory Results 01/01/18 08:30 01/01/18 05:30 12/31/17 01/01/18 01/02/18 05:59 05:59 05:59 Intake Total 1500 835 500 Output Total 950 1400 675 Balance 550 -565 -175 PT 20.4 SEC (12.0-15.0) H 12/27/17 14:48 INR 1.73 (0.83-1.16) H 12/27/17 14:48 awake alert nad anicteric op clear rrr no mrg cta b soft nt nd no cce warm dry left bka right bka with wound vac in place ICD10 Worksheet Patient Problems: Problems Problem Status Onset Diabetes type 2, uncontrolled Acute MRSA (methicillin resistant Staphylococcus aureus) Acute 02/19/16 Osteomyelitis of toe of left foot Acute
[2018-01-01] MEDS: RIVAROXABAN 15 MG TAB PO SCH (20:54)
[2018-01-01] MEDS: INSULIN GLARGINE SQ SCH (20:55)
[2018-01-01] MEDS: LIXISENATIDE SQ SCH (20:55)
[2018-01-01] MEDS: LATANOPROST 0.005% 2.5 ML OPHT DROPS EACHEYE SCH (22:03)
[2018-01-02] MEDS: oxyCODONE IR 5 MG TAB PO PRN ×2 (05:27→17:23)
[2018-01-02] MEDS: DILTIAZEM CD 120 MG CAP PO SCH (09:08)
[2018-01-02] MEDS: CHOLECALCIFEROL VIT D3 1,000 UNITS TAB PO SCH (09:08)
[2018-01-02] MEDS: SENNOSIDES/DOCUSATE SODIUM TAB PO SCH ×2 (09:08→21:34)
[2018-01-02] MEDS: OMEGA-3 FATTY ACIDS 1,000 MG CAP PO SCH (09:09)
[2018-01-02] MEDS: INSULIN LISPRO 100 UNIT/ML SC SCH ×3 (09:27→17:24)
[2018-01-02] MEDS: Thyroid,Pork [Armour Thyroid] 15 MG PO SCH (10:35)
--- NOTE | 2018-01-02 10:37 | HOSPPROG ---
Hospitalist Progress Note Assessment/Plan: New patient encounter 57 yo M with hx of DM/PVD s/p L BKA pw right foot cellulitis and osteomyelitis # cellulitis /osteomyelitis: with chronic lower extremity wounds 2/2 PVD/DM. MRI of right foot w/ e/o abscess/osteo and now s/p R BKA on POD #[address]. -Pain is well controlled. Has not needed IV Dilaudid since yesterday, will stop. Cont all other. -No signs of somnolence today # PVD: in setting of above # DM: with complications including nephropathy/neuropathy, control has been reasonable since arrival, continue SSI # CKD: at baseline # p afib: rate is good, continue op meds # hypothyroid: continue op meds # IP status, will need > 48 hours stay for eval/mgmt of above--likely dc to IP rehab in coming 1-2 days, possibly today. If stays will check labs in a.m. Subjective: pain is well controlled. no confusion or somnolence. tolerating PO well. working with PT Objective: Vital Signs Temp Pulse Resp BP Pulse Ox 36.6 C 76 16 148/76 H 98 01/02/18 07:20 01/02/18 07:20 01/02/18 07:20 01/02/18 07:20 01/02/18 07:20 Laboratory Results 01/01/18 08:30 01/02/18 05:20 01/01/18 01/02/18 01/03/18 05:59 05:59 05:59 Intake Total 835 500 Output Total 1400 3250 300 Balance -565 -2750 -300 PT 20.4 SEC (12.0-15.0) H 12/27/17 14:48 INR 1.73 (0.83-1.16) H 12/27/17 14:48 - Physical Exam Constitutional: no apparent distress, appears nourished Eyes: PERRL, EOMI Ears, Nose, Mouth, Throat: moist mucous membranes, hearing normal Cardiovascular: regular rate and rhythym Respiratory: no respiratory distress, no rales or rhonchi, clear to auscultation Gastrointestinal: normoactive bowel sounds, soft, non-tender abdomen Skin: warm Neurologic: AAOx3 Psychiatric: interacting appropriately, not anxious, not encephalopathic ICD10 Worksheet Patient Problems: Problems Problem Status Onset Diabetes type 2, uncontrolled Acute MRSA (methicillin resistant Staphylococcus aureus) Acute 02/19/16 Osteomyelitis of toe of left foot Acute
--- NOTE | 2018-01-02 10:46 | SOAPPROG ---
SOAP Progress Note Assessment/Plan: Assessment/Plan: 57yo M POD#4 s/p R BKA. Previous L BKA Pain control an issue over the weekend, but significantly improved today Incisional wound vac Home Xarelto IV antibiotics per ID Comorbidities managed by hospitalists PT/OT Dispo: dc to inpatient rehab when cleared by therapy. Seen c Dr. Sweet. S: pain controlled. swelling improved. working with therapy O: Laying in bed, comfortable, NAD No increased WOB RLE wound vac intact to suction, min fluid in canister. Min swelling of RLE residual limb, nontender. No erythema or ecchymosis. Objective: Vital Signs Temp Pulse Resp BP Pulse Ox 36.6 C 76 16 148/76 H 98 01/02/18 07:20 01/02/18 07:20 01/02/18 07:20 01/02/18 07:20 01/02/18 07:20 Laboratory Results 01/01/18 08:30 01/02/18 05:20 01/01/18 01/02/18 01/03/18 05:59 05:59 05:59 Intake Total 835 500 Output Total 1400 3250 300 Balance -565 -2750 -300 PT 20.4 SEC (12.0-15.0) H 12/27/17 14:48 INR 1.73 (0.83-1.16) H 12/27/17 14:48 ICD10 Worksheet Patient Problems: Problems Problem Status Onset Diabetes type 2, uncontrolled Acute MRSA (methicillin resistant Staphylococcus aureus) Acute 02/19/16 Osteomyelitis of toe of left foot Acute
--- NOTE | 2018-01-02 15:38 | ASMTCMCOM ---
CM Note CM Note Notes: CM spoke w/ Keke from inpatient rehab and she has gotten auth from [place]. Anticipated d/c for tomorrow. CM met w/ pt and informed him of the plan. Pt reports that he will set up transportation. CM called and notified . would prefer that CM sets up transportation. Reports that he will need to d/c in a wheelchair. CM updated DANUTA Cordova and Dr. Gates. CM to follow. Plan: [facility] inpatient rehab Date Signed: 01/02/2018 03:38 PM Electronically Signed By:POOJA Sevilla
[2018-01-02] MEDS: INSULIN GLARGINE SQ SCH (21:34)
[2018-01-02] MEDS: LIXISENATIDE SQ SCH (21:34)
[2018-01-02] MEDS: RIVAROXABAN 15 MG TAB PO SCH (21:34)
[2018-01-02] MEDS: LOSARTAN POTASSIUM 25 MG TAB PO SCH (21:35)
[2018-01-02] MEDS: LATANOPROST 0.005% 2.5 ML OPHT DROPS EACHEYE SCH (21:36)
[2018-01-03 06:17] LABS: PLATELET COUNT 376 10^3/uL (150-400)
[2018-01-03 08:03] VITALS: BP 145/73
[2018-01-03] MEDS: INSULIN LISPRO 100 UNIT/ML SC SCH ×2 (08:17→11:00)
[2018-01-03] MEDS: SENNOSIDES/DOCUSATE SODIUM TAB PO SCH (08:46)
[2018-01-03] MEDS: OMEGA-3 FATTY ACIDS 1,000 MG CAP PO SCH (08:48)
[2018-01-03] MEDS: CHOLECALCIFEROL VIT D3 1,000 UNITS TAB PO SCH (08:48)
[2018-01-03] MEDS: DILTIAZEM CD 120 MG CAP PO SCH (08:48)
[2018-01-03] MEDS: Thyroid,Pork [Armour Thyroid] 15 MG PO SCH (08:48)
--- NOTE | 2018-01-03 08:48 | SOAPPROG ---
SOAP Progress Note Assessment/Plan: Assessment: s/p R BKA Removed incisional wound vac. Applied waterproof mepilex dressing DC to [facility] rehab S: Feeling better today. Did a lap in the wheel chair Sitting in chair Edema less Resolving ecchymosis Incision cdi Plan: 01/03/18 08:47 Objective: Vital Signs Temp Pulse Resp BP Pulse Ox 36.8 C 69 18 145/73 H 99 01/03/18 08:00 01/03/18 08:00 01/03/18 08:00 01/03/18 08:00 01/03/18 08:00 Laboratory Results 01/03/18 05:40 01/02/18 05:20 01/02/18 01/03/18 01/04/18 05:59 05:59 05:59 Intake Total 500 1060 Output Total 3250 300 Balance -2750 760 PT 20.4 SEC (12.0-15.0) H 12/27/17 14:48 INR 1.73 (0.83-1.16) H 12/27/17 14:48 ICD10 Worksheet Patient Problems: Problems Problem Status Onset Diabetes type 2, uncontrolled Acute MRSA (methicillin resistant Staphylococcus aureus) Acute 02/19/16 Osteomyelitis of toe of left foot Acute
--- NOTE | 2018-01-03 08:56 | PDIAF ---
- Diagnosis Diagnosis: Bilateral BKA (recent R BKA) Code Status: Full Code - Medication Management Discharge Medications: Medications to Continue on Transfer Diltiazem Cd [Cardizem ER 120 MG (*)] 120 mg PO DAILY #30 cap 03/15/16 [Last Taken 12/27/17] Latanoprost 0.005% [Xalatan 0.005% (*)] 1 drops EACHEYE HS #1 opht.btl 03/15/16 [Last Taken 12/25/17] Losartan Potassium [Cozaar 25 mg (*)] 25 mg PO HS 09/26/17 [Last Taken 12/26/17] Insulin Glargine/Lixisenatide [Soliqua 100 Unit-33 Mcg/ml Pen] 20 unit SQ HS [Last Taken 12/26/17] Cholecalciferol Vit D3 [Vitamin D3 (*)] 1,000 units PO DAILY 10/31/17 [Last Taken 12/27/17] [place]-3 Fatty Acids [Fish Oil 1000 mg (*)] 1,000 mg PO DAILY 10/31/17 [Last Taken 12/27/17] Thyroid,Pork [ARMOUR THYROID] 15 mg PO HS 10/31/17 [Last Taken 12/26/17] Rivaroxaban [Xarelto] 20 mg PO HS 12/27/17 [Last Taken 12/26/17] Alteplase [Cathflo Activase 2 mg (*)] 2 mg IVP PRN PRN vial 01/03/18 [Last Taken Unknown] Insulin Glargine/Lixisenatide [Soliqua 100 Unit-33 Mcg/ml Pen] 20 unit SQ HS 11/18 [Last Taken Unknown] Insulin Lispro [HumaLOG LISPRO] 0 unit SC TIDMEAL unit 01/03/18 [Last Taken Unknown] Latanoprost 0.005% [Xalatan 0.005% (*)] 1 drops EACHEYE HS opht.btl 01/03/18 [ Last Taken Unknown] Melatonin [Melatonin 3 MG (*)] 3 mg PO HS PRN tab 01/03/18 [Last Taken Unknown] Sennosides/Docusate Sodium [Senokot-S] 1 - 2 tab PO BID tab 01/03/18 [Last Taken Unknown] oxyCODONE IR [Oxycodone Ir (*)] 5 - 15 mg PO Q3 PRN tab 01/03/18 [Last Taken Unknown] Discharge Medications: Refer to the Discharge Home Medication list for PRN reason. PICC Care - Routine: Yes - Orders Isolation Type: None Diet Recommendation: no restrictions on diet Wound Care Instructions: The silver mepilex dressing is waterproof. Change weekly or prn saturation. I will remove 1/2 of the sutures/ketan in about 7- 10 days Additional Instructions: May shower I left the PICC in - just in case you want labs. Can DC PICC when no longer needed Shaka Armijo is working with Jerrell I am going to try to see Jerrell either this Sunday or next Sunday at rehab - Follow Up Care Current Providers and Referrals: NILSON DIEGO [Primary Care Provider] - Dasha Sweet MD [Medical Doctor] - (I will come by rehab to see Jerrell either this sunday or next)
--- NOTE | 2018-01-03 09:54 | HOSPPROG ---
Hospitalist Progress Note Assessment/Plan: 57 yo M with hx of DM/PVD s/p L BKA pw right foot cellulitis and osteomyelitis # cellulitis /osteomyelitis: with chronic lower extremity wounds 2/2 PVD/DM. MRI of right foot w/ e/o abscess/osteo and now s/p R BKA on POD #5 -wound vac removed -Pain is well controlled. -No signs of somnolence today # PVD: in setting of above # DM: with complications including nephropathy/neuropathy, control has been reasonable since arrival, continue SSI # CKD: at baseline # p afib: rate is good, continue op meds # hypothyroid: continue op meds # Dispo: ok for discharge per Surgery Subjective: ready for discharge. Pain is well controlled. no cp or sob Objective: Vital Signs Temp Pulse Resp BP Pulse Ox 36.8 C 75 18 145/73 H 99 01/03/18 08:00 01/03/18 08:48 01/03/18 08:00 01/03/18 08:48 01/03/18 08:00 Laboratory Results 01/03/18 05:40 01/02/18 05:20 01/02/18 01/03/18 01/04/18 05:59 05:59 05:59 Intake Total 500 1060 Output Total 3250 300 Balance -2750 760 PT 20.4 SEC (12.0-15.0) H 12/27/17 14:48 INR 1.73 (0.83-1.16) H 12/27/17 14:48 - Physical Exam Constitutional: no apparent distress Eyes: PERRL, EOMI Ears, Nose, Mouth, Throat: moist mucous membranes, hearing normal, ears appear normal Cardiovascular: regular rate and rhythym Respiratory: no respiratory distress Gastrointestinal: normoactive bowel sounds Skin: warm Neurologic: AAOx3 Psychiatric: interacting appropriately, not anxious, not encephalopathic Lymph, Heme, Immunologic: No petechiae ICD10 Worksheet Patient Problems: Problems Problem Status Onset Diabetes type 2, uncontrolled Acute MRSA (methicillin resistant Staphylococcus aureus) Acute 02/19/16 Osteomyelitis of toe of left foot Acute
[2018-01-03] MEDS: oxyCODONE IR 5 MG TAB PO PRN (11:24)
--- NOTE | 2018-01-03 16:22 | ASDISCHSUM ---
Discharge Information Plan Status:Inpatient Rehab Medically Cleared to Leave: Discharge Date:01/03/2018 11:48 AM CM D/C Disposition:[facility] ADT D/C Disposition:[facility] IP Projected Discharge Date:12/28/2017 11:00 AM Transportation at D/C:Wheelchair Van Discharge Delay Reason: Follow-Up Date:12/28/2017 11:00 AM Discharge Slot: Final Diagnosis: Placement Information Referral Type:Home Infusion Referral ID:[id number] Provider Name: Address 1: Phone Number: Address 2: Fax Number: City: Selection Factors: State: Referral Type:Rehabilitation Hospital Referral ID:[id number] Provider Name:[facility] Address 1:[address] [place] [address] Phone Number: Address 2: Fax Number: [facility]:[place] Selection Factors: State:[place] Patient Contact Information Contact Name:CELINALUIZCARSONALVAROADRIANNE Relationship: Address:[address] [place] City:[place] Alternate Phone: State/Zip Code:[place] [address] Email: Financial Information Financial Class:HMO and PPO Plans Primary Plan Desc:[facility] Primary Plan Number:[id number] Secondary Plan Desc: Secondary Plan Number: Assessment Information [facility] Progress Note CM Note CM Note Notes: Pt admitted w/RLE cellulitis, r/o osteomyelitis, has hx of infections/metatarsal amp to RLE. He has been receiving home IV ABX's. Pt has hx of L BKA. He has had MRI, ID consult and followed by surgery. He will go for BKA tomorrow. Met w/pt to discuss. He lives at home w/, has good support. He has been to [facility] in pt rehab in past. Discussed w/[facility] [place] who said the plan will be for inpt rehab again. Also notified Shyanne higgins/[facility] as he was current w/them. CM will follow up w/inpt rehab on Sunday. Date Signed: 12/28/2017 03:38 PM Electronically Signed By:Petra Miguel RN [facility] CM Progress Note CM Note CM Note Notes: CM spoke w/ Dr. Newman regarding d/c POC. Pt is medically stable to go whenever there is a bed available at inpatient rehab. CM spoke w/ Keke Gin and relay the message. Keke reports that she will work on getting auth from [facility] as soon as OT works w/ pt and puts in their recommendations. CM to follow. Plan: Inpatient rehab Date Signed: 12/31/2017 11:29 AM Electronically Signed By:POOJA Sevilla [facility] CM Progress Note CM Note CM Note Notes: CM spoke w/ Keke from inpatient rehab and she has gotten auth from [facility]. Anticipated d/c for tomorrow. CM met w/ pt and informed him of the plan. Pt reports that he will set up transportation. CM called and notified . would prefer that CM sets up transportation. Reports that he will need to d/c in a wheelchair. CM updated DANUTA Cordova and Dr. Gates. CM to follow. Plan: [facility] inpatient rehab Date Signed: 01/02/2018 03:38 PM Electronically Signed By:POOJA Sevilla Case Management Discharge Plan Note Case Management Discharge Discharge Order Complete? Answers: Yes Patient to Obtain Answers: Other Notes: [facility] In Rehab Medications Transportation Arranged Answers: Other Notes: [facility] Transport will Pick (Date 01/03/2018 11:30 AM & Time) Faxed Final Orders Answers: Yes Family Notified Answers: Yes Discharge Comments Notes: D/w RN, final orders faxed. Keke at In Rehab notified. CM spoke with pt and and both agree to $50 transport fee with [facility]. RN to call report. Date Signed: 01/03/2018 09:51 AM Electronically Signed By:Anna Miller RN Intervention Information
--- NOTE | 2018-01-18 13:27 | GOP ---
[f rep st] OPERATIVE REPORT DATE OF OPERATION: 12/27/2017 SURGEON: Dasha Sweet MD ANESTHESIA: General. ANESTHESIOLOGIST: Scotty Goldberg MD. PREOPERATIVE DIAGNOSIS: Right foot osteomyelitis. POSTOPERATIVE DIAGNOSIS: Right foot osteomyelitis. PROCEDURE PERFORMED: Right iugfg-tnn-qurq amputations. FINDINGS: SPECIMENS: Lower leg and food. ESTIMATED BLOOD LOSS: 250 cc. INDICATIONS: 57-year-old man with diabetes who underwent left BKA. He then developed a wound over h is toes on the right side. We performed amputation and attempted limb salvage. However, the wound w as having difficulty healing and the patient requested a opsmm-qvc-ozaz amputation. DESCRIPTION OF PROCEDURE: Patient was brought into the operating room, placed supine on the table an d general anesthesia was administered. His right foxre-isz-rjki and foot were prepped and draped in the usual sterile fashion. I made an incision approximately 12 cm below the tibial tuberosity and ex tended this medially and laterally toward the edges of the gastrocnemius muscle. The skin incision w as extended distally parallel to the tibia for an additional 10 cm to create a posterior flap. Skin and subcutaneous tissues were incised down to the fascia. The greater and short saphenous veins on t he medial and posterior aspects of the leg were ligated and divided. The fascia muscles were divided with electrocautery at the same level of the anterior skin incision. The muscles in the anterior an d lateral compartments were divided, which exposed the anterior tibial vessels. I ligated and divide d these. The tourniquet was up during this time. The interosseous membrane was incised. The tibial periosteum was incised circumferentially with electrocautery. I used a periosteal elevator to eleva te the periosteum. I performed a similar procedure on the fibula. I transected each bone with the t high and made sure that the fibula was more proximal than the tibia. Sharp bony prominences were kerry minated with a rasp. The posterior tibial and peroneal vessels were clamped and sutured. The fascia of the anterior and posterior flaps were approximated with 0 Vicryl. Skin closed with ketan and 2 -0 nylon. An incisional wound VAC was applied. He was awakened in the operating room, extubated and transferred to PACU in stable condition. /[id number]/MODL
--- NOTE | 2018-01-21 14:28 | GDS ---
[f rep st] DISCHARGE SUMMARY ADMITTING DIAGNOSIS: Chronic right lower extremity wounds with cellulitis. SECONDARY DIAGNOSES: Type 2 diabetes; status post below-knee amputation, left lower extremity; atria l fibrillation; hypertension; obstructive sleep apnea; chronic kidney disease; lymphoma; peripheral v ascular disease; hypothyroidism. HOSPITAL COURSE: He was admitted on 12/27/2017 directly from our office with worsening cellulitis of his right lower extremity. He had previously undergone amputation of the 4th and 5th toes and dista l metatarsals with delayed wound healing. He was admitted for further workup, IV antibiotics and flores gical intervention. An MRI was performed which showed cellulitis and myositis of the right calf and also revealed bone marrow edema and enhancement of the right forefoot at the site of the amputation, suggesting possible osteomyelitis. He also had several forefoot fractures indicative of Charcot arth ropathy. He was started on IV Invanz and was followed through his hospital stay by Rhonda wilhelm. He elected for a right below-knee amputation and was taken to the operating room by Dr. Dasha dickinson on 12/29/2017. An incisional wound VAC was placed at the time of surgery. He was restarted on hi s Xarelto on postoperative day #2. He worked with Physical and Occupational Therapy through his hosp ital stay, and his postoperative course was unremarkable. [facility] CONDITION ON DISCHARGE: Discharged to inpatient rehab. Pain is controlled, tolerating a regular t. DISCHARGE MEDICATIONS: Discontinue antibiotics. He will resume his other home medications. See EMR for further detail. DISCHARGE INSTRUCTIONS AND FOLLOWUP: He may shower. The right stump dressing is waterproof. PICC l ine can be removed when no longer needed. He is working with Galile[facility] from [facility] on prosthesis. He will follow up with Dr. Sweet in 1 week. Call with worsening symptoms, questions, or concerns. /[id number]/MODL
== END 2018-01-03 11:48 | DRG 617 ==
LOC: OBSVTOIN 13:23 → F3N 13:23 → INTOOBSV 13:23 → EDSTATUS 16:15 → F3E 12-29 09:57
PROVIDERS: ADMIT Surgery; ATTEND Surgery
PROC: 0Y6H0Z1 Detachment at Right Lower Leg, High, Open Approach (ICD-10-PCS; principal; 2017-12-27)
PROC: 02HV33Z Insertion of Infusion Device into Superior Vena Cava, Percutaneous Approach (ICD-10-PCS; 2017-12-27)
DX: E11.69 Type 2 diabetes mellitus with other specified complication (principal); L03.115 Cellulitis of right lower limb; M86.671 Other chronic osteomyelitis, right ankle and foot; L97.319 Non-pressure chronic ulcer of right ankle with unspecified severity; Z89.512 Acquired absence of left leg below knee; E11.40 Type 2 diabetes mellitus with diabetic neuropathy, unspecified; E11.51 Type 2 diabetes mellitus with diabetic peripheral angiopathy without gangrene; I12.9 Hypertensive chronic kidney disease with stage 1 through stage 4 chronic kidney disease, or unspecified chronic kidney disease; N18.9 Chronic kidney disease, unspecified; E03.9 Hypothyroidism, unspecified; I48.0 Paroxysmal atrial fibrillation; G47.33 Obstructive sleep apnea (adult) (pediatric); Z79.4 Long term (current) use of insulin
CPT/HCPCS: 97162-GP; 97166-GO; 97530-GO; 97530-GP; 97535-GO; A9585; C1751; G0378; J1170; J1335; J1815; J2250; J2704; J3010

== ENCOUNTER 2018-01-02 15:51 | Inpatient (IN) | payer OTHER ==
[2018-01-03] MEDS ORDERED: ALTEPLASE 2 MG VIAL IVP PRN (12:40)
[2018-01-03] MEDS ORDERED: MELATONIN 3 MG TAB PO PRN (13:43)
[2018-01-03] MEDS ORDERED: D50W 25 GM/50 ML SYR IVP PRN (13:59)
--- NOTE | 2018-01-03 14:38 | GHP ---
[f rep st] HISTORY AND PHYSICAL POST ADMISSION PHYSICIAN EVALUATION AND REHABILITATION TREATMENT PLAN DATE OF ADMISSION: 01/03/2018 DATE OF EVALUATION: January 03, 2018 REFERRING FACILITY: [facility]. REFERRING PHYSICIAN: Dasha Sweet MD IMPAIRMENT GROUP: 5.4. DATE OF ONSET: 12/27/2017. CONSULTING PHYSICIANS: He was seen in consultation by the hospitalist service, Blake Bridges MD, and the infectious disease service, Cristhian Bermudez MD. REHABILITATION DIAGNOSIS: Debility, status post right unixp-iwd-nsor amputation with history of left vxqwb-akw-stio amputation. ETIOLOGIC DIAGNOSIS: Unilateral lower limb below the knee. DATE OF SURGERY: 12/29/2017. HISTORY OF PRESENT ILLNESS: This patient is a 57-year-old man with a history of a left fkwfs-kjc-gubj amputation and recent right transmetatarsal amputation of the 4th and 5th toes. He was admitted to [facility] on 12/27/2017, with progressive redness over additional toes. An MRI showed cellulitis and osteomyelitis. He had an elective right yyarh-vsg-bplw amputation and initially placement of a wound VAC. Subsequently, the wound VAC was discontinued, and postoperatively, he was stable and ready for rehabilitation. Lab and studies in the hospital: Most recent labs today. He had an elevated white count of 12.07 on CBC. He had anemia with a hemoglobin of 9.1 and hematocrit of 27.7. These had improved from 2 days prior when hemoglobin was 8.8, and hematocrit was 27. There was a slight left shift with immature granulocytes at 0.14 with upper limit of normal being 0.1. Coagulation studies showed a prolonged pro time at 20.4 and an INR of 1.73. Chemistry showed generally elevated blood sugars. Yesterday his fasting was 175, and today it was 147. Over yesterday and today, blood sugars have ranged from 147 to 282. Chemistry studies yesterday showed normal renal function and electrolytes. He appeared somewhat dehydrated on his labs with a BUN of 32 and a creatinine of 1.2. The previous day his creatinine had been 1.7, which is as high as it had been during his hospitalization. Imaging findings were as described above. PRECAUTIONS: He is a fall risk. ACTIVE COMORBIDITIES: He has the comorbidity of diabetes mellitus with manifestations of peripheral vascular disease and renal insufficiency. PAST MEDICAL HISTORY: 1. Diabetes mellitus type 2. 2. Hypertension. 3. Chronic renal insufficiency. 4. Peripheral vascular disease. 5. Osteomyelitis, status post left wbiyd-pdp-crxv amputation. 6. Diabetic neuropathy. 7. Hypothyroidism. 8. Thyroid nodule with negative biopsy. 9. Mesenteric mass. 10. Groin lymphadenopathy. 11. Paroxysmal atrial fibrillation. 12. Glaucoma. 13. Pulmonary hypertension. 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 He lives in [place] with his . He has 5 children. He is not a smoker or an alcohol user nor does he use other drugs. FAMILY HISTORY: His father had diabetes and coronary artery disease. ALLERGIES: Allopurinol, penicillins, ciprofloxacin and linezolid. MEDICATIONS: Prior to admission: 1. Augmentin. 2. Rivaroxaban. 3. Vitamin D. 4. Diltiazem. 5. Insulin glargine in combination with lixisenatide. 6. Latanoprost. 7. Losartan. 8. Fish oil. 9. Pork thyroid. Admission medications: 1. Cholecalciferol 1000 units p.o. q. day. 2. Diltiazem ER 120 mg p.o. q. day. 3. Insulin glargine/lixisenatide 20 units subcutaneous q.h.s. 4. Insulin lispro on a sliding scale. 5. Latanoprost 0.005% 1 drop each eye at h.s. 6. Losartan 25 mg p.o. q.h.s. 7. Melatonin 3 mg p.o. q.h.s. p.r.n. 8. [place]-3 fatty acids 1000 mg p.o. q. day. 9. Oxycodone 5-15 mg p.o. q.3 hours p.r.n. 10. Rivaroxaban 20 mg p.o. q.h.s. 11. Senna/docusate 1-2 tablets p.o. b.i.d. 12. Pork thyroid 15 mg q.h.s. but he reports it should be in the morning. PSYCHOSOCIAL HISTORY: He is . He lives with his . They have 5 children, some of whom are adopted. There are steps to climb in the house. He is a nonsmoker and does not use alcohol. 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 REVIEW OF SYSTEMS: He reports pain is adequately controlled with his current opiate regimen. He denies cough or dyspnea. He has been using some oxygen overnight and was doing this before his admission. He denies fevers or chills. He denies nausea or vomiting. He has no abdominal pain. He has had constipation in the hospital but moved his bowels yesterday. He has a good appetite. He is in good spirits. Otherwise, a 10-point review of systems is negative. PHYSICAL EXAMINATION: VITALS: This morning in the hospital, blood pressure was 145/73, heart rate was 75, respiratory rate was 18, oxygen saturation was 99 % on 2 L. yesterday afternoon, oxygen saturation was 91% on room air. Temperature was 36.8 degrees centigrade. GENERAL: This is a well-nourished, well-developed, obese man, sitting in a wheelchair, dressed in street clothes, cooperative and in no acute distress. HEENT: Extraocular movements are intact. Pupils are equal, round, reactive to light. Mucous membranes are moist. Dentition is in good condition. He has a crowded airway, Mallampati class 3. There are no oropharyngeal mucosal lesions. NECK: Supple. HEART: There is a regular rate and rhythm with no murmurs, rubs, or gallops. LUNGS: Clear to auscultation bilaterally. ABDOMEN: Soft, nontender, nondistended with normoactive bowel sounds and no hepatosplenomegaly. EXTREMITIES: He has bilateral ykyop-kox-ccgr amputations. There is 1 to 2+ edema on the right leg over the proximal tibia. NEUROLOGIC: He is alert and oriented x3. Cranial nerves 2-12 are grossly intact. There is no focal weakness, and sensation is intact to light touch. CURRENT LEVEL OF FUNCTION: Per the pre-admission screen: Regarding diet, feeding, and swallowing. He had a regular diet and was independent with feeding. For grooming, he required setup. Dressing was done seated with modified independence. Toileting required moderate assist. He was continent of bladder and bowel. Bed mobility required standby assist. For transfers, he required minimal assist with voice cues for hand placement. He used a wheelchair. Balance required contact guard to minimal assist when standing. Endurance was fair. He was able to self propel a wheelchair 200 feet with standby assist to minimal assist to manage the various parts of the wheelchair. Communication and cognition were considered to be within normal limits. IMPRESSION: This is a 57-year-old man with diabetes and a history of neuropathy and peripheral vascular disease who underwent a left nkuua-epb-ddzr amputation in 2016 and unfortunately required a right uwfvg-uam-obmw amputation on 12/29/2017 for recurrent cellulitis and osteomyelitis. He has come through surgery well. Pain is well controlled, and he is in good spirits. He is medically stable and ready for rehabilitation where he will benefit from nursing care due to fall risk, for wound healing, and for medication administration and medication education. He will benefit from physical and occupational therapy to optimize mobility and activities of daily living to the modified independent level. He will benefit from the care of a physician for pain management, glycemic control, blood pressure control, risk for infection. For a safe discharge he will need to achieve the modified independent level for mobility and activities of daily living. He will have therapy with physical and occupational therapy for 90 minutes per day for each discipline on 5-7 days of the week. His expected duration of stay is 5-7 days. It is anticipated that, upon discharge, he will continue to benefit from outpatient occupational therapy and physical therapy as well as an amputation support group. PLAN: 1. Right gbxlg-dzk-ripd amputation with history of left bflja-nzb-rqbc amputation. He is quite functional with his left prosthesis. He will have PT and OT to optimize his mobility and activities of daily living toward the modified independent level. 2. Wound care. The dressing is to be left intact and surgeon, Dr. Sweet, will visit him on the inpatient rehabilitation unit to follow up on surgery and remove the sutures. 3. Pain management appears to be adequate with his current oxycodone dose. He will be monitored regarding pain control, and medications will be adjusted as needed. 4. Diabetes mellitus type 2. His blood sugars have been running somewhat high in the hospital. Will continue current medications as well as insulin sliding scale with lispro. He reports that he is closely managed by an owner manager outside the hospital so most likely there will not be changes made in his medications. 5. Hypertension has overall been well controlled though there have been a few high readings. Continue losartan and diltiazem. 6. Atrial fibrillation. Continue rivaroxaban for anticoagulation and diltiazem for rate control. 7. Glaucoma. Continue latanoprost eyedrops. 8. Constipation. Continue senna/docusate and will consider additional medications as needed. 9. Prophylaxis: Rivaroxaban will be adequate for DVT prophylaxis. FOLLOWUP: Surgeon, Dr. Sweet, plans to visit him on the inpatient rehabilitation unit. PRIMARY CARE PROVIDER: Dr. Rudy Jordan. /[id number]
[2018-01-03] MEDS: INSULIN LISPRO 100 UNIT/ML SC SCH (17:28)
[2018-01-03] MEDS: oxyCODONE IR 5 MG TAB PO PRN (19:10)
[2018-01-03] MEDS ORDERED: RIVAROXABAN 20 MG TAB PO SCH (21:00)
[2018-01-03] MEDS: SENNOSIDES/DOCUSATE SODIUM TAB PO SCH (22:03)
[2018-01-03] MEDS: LOSARTAN POTASSIUM 25 MG TAB PO SCH (22:03)
[2018-01-03] MEDS: LIXISENATIDE SQ SCH (22:03)
[2018-01-03] MEDS: INSULIN GLARGINE SQ SCH (22:03)
[2018-01-03] MEDS: LATANOPROST 0.005% 2.5 ML OPHT DROPS EACHEYE SCH (22:07)
[2018-01-04] MEDS: THYROID PORK 15 MG PO SCH (05:32)
[2018-01-04] MEDS ORDERED: NON-FORMULARY NEW DRUG (Thyroid,Pork [Armour Thyroid] 15 MG) PO SCH (06:00)
[2018-01-04] MEDS: OMEGA-3 FATTY ACIDS 1,000 MG CAP PO SCH (08:31)
[2018-01-04] MEDS: DILTIAZEM CD 120 MG CAP PO SCH (08:31)
[2018-01-04] MEDS: CHOLECALCIFEROL VIT D3 1,000 UNITS TAB PO SCH (08:31)
[2018-01-04] MEDS: SENNOSIDES/DOCUSATE SODIUM TAB PO SCH ×2 (08:31→22:02)
[2018-01-04] MEDS: INSULIN LISPRO 100 UNIT/ML SC SCH ×3 (08:39→17:05)
--- NOTE | 2018-01-04 09:25 | SOAPPROG ---
SOAP Progress Note Assessment/Plan: Assessment: * Right ayavj-qxg-modk amputation with history of left peuev-pma-awct amputation. He is quite functional with his left prosthesis. He will have PT and OT to optimize his mobility and activities of daily living toward the modified independent level. * Wound care. The dressing is to be left intact and surgeon, Dr. Sweet, will visit him on the inpatient rehabilitation unit to follow up on surgery and remove the sutures. * Pain management appears to be adequate with his current oxycodone dose. He will be monitored regarding pain control, and medications will be adjusted as needed. * Diabetes mellitus type 2. His blood sugars have been running somewhat high in the hospital. Will continue current medications as well as insulin sliding scale with lispro. He reports that he is closely managed by an battery builder outside the hospital so most likely there will not be changes made in his medications. * Hypertension, adequately controlled. Continue losartan and diltiazem. * Atrial fibrillation. Continue rivaroxaban for anticoagulation and diltiazem for rate control. * Glaucoma. Continue latanoprost eyedrops. * Constipation. Continue senna/docusate and will consider additional medications as needed. *Prophylaxis: Rivaroxaban will be adequate for DVT prophylaxis. FOLLOWUP: Surgeon, Dr. Sweet, plans to visit him on the inpatient rehabilitation unit, possibly 01/07/2018. PRIMARY CARE PROVIDER: Dr. Rudy Jordan. 01/04/18 12:57 Subjective: No complaints. Slept well though he reports he was up to urinate several times. Not in pain. No cough or dyspnea, no fevers or chills. Objective: Vital Signs Temp Pulse Resp BP Pulse Ox 37.0 C 66 16 118/84 H 90 L 01/04/18 07:11 01/04/18 08:31 01/04/18 07:11 01/04/18 08:31 01/04/18 07:11 01/03/18 01/04/18 01/05/18 05:59 05:59 05:59 Intake Total 200 Output Total 1225 600 Balance -1025 -600 Physical Exam - Physical Exam General Appearance: WD/WN, alert, no apparent distress, obese Respiratory: No respiratory distress, No accessory muscle use Skin: normal color, warm/dry Neuro/Psych: no motor/sensory deficits, alert, normal mood/affect, oriented x 3 ICD10 Worksheet Patient Problems: Problems Problem Status Onset Diabetes type 2, uncontrolled Acute MRSA (methicillin resistant Staphylococcus aureus) Acute 02/19/16 Osteomyelitis of toe of left foot Acute
[2018-01-04] MEDS: oxyCODONE IR 5 MG TAB PO PRN ×2 (09:40→23:39)
[2018-01-04] MEDS: LOSARTAN POTASSIUM 25 MG TAB PO SCH (22:00)
[2018-01-04] MEDS: RIVAROXABAN 20 MG TAB PO SCH (22:01)
[2018-01-04] MEDS: INSULIN GLARGINE SQ SCH (22:02)
[2018-01-04] MEDS: LIXISENATIDE SQ SCH (22:02)
[2018-01-04] MEDS: LATANOPROST 0.005% 2.5 ML OPHT DROPS EACHEYE SCH (22:06)
[2018-01-05] MEDS: oxyCODONE IR 5 MG TAB PO PRN ×2 (00:08→19:32)
[2018-01-05] MEDS: THYROID PORK 15 MG PO SCH (05:33)
[2018-01-05] MEDS: INSULIN LISPRO 100 UNIT/ML SC SCH ×3 (09:56→18:10)
[2018-01-05] MEDS: CHOLECALCIFEROL VIT D3 1,000 UNITS TAB PO SCH (10:58)
[2018-01-05] MEDS: OMEGA-3 FATTY ACIDS 1,000 MG CAP PO SCH (10:58)
[2018-01-05] MEDS: DILTIAZEM CD 120 MG CAP PO SCH (10:58)
[2018-01-05] MEDS: SENNOSIDES/DOCUSATE SODIUM TAB PO SCH ×2 (10:58→20:46)
--- NOTE | 2018-01-05 14:13 | SOAPPROG ---
SOAP Progress Note Assessment/Plan: Assessment: * Right kqkxb-oiq-zapm amputation with history of left wueyt-wzb-psnx amputation. He is quite functional with his left prosthesis. He will have PT and OT to optimize his mobility and activities of daily living toward the modified independent level. * Wound care. The dressing is to be left intact and surgeon, Dr. Sweet, will visit him on the inpatient rehabilitation unit to follow up on surgery and remove the sutures. * Pain management appears to be adequate with his current oxycodone dose. He will be monitored regarding pain control, and medications will be adjusted as needed. * Diabetes mellitus type 2. His blood sugars have been running somewhat high in the hospital. Will continue current medications as well as insulin sliding scale with lispro. He reports that he is closely managed by an caser outside the hospital so most likely there will not be changes made in his medications. * Hypertension, adequately controlled. Continue losartan and diltiazem. * Atrial fibrillation. Continue rivaroxaban for anticoagulation and diltiazem for rate control. * Glaucoma. Continue latanoprost eyedrops. * Constipation. Continue senna/docusate and will consider additional medications as needed. *Prophylaxis: Rivaroxaban will be adequate for DVT prophylaxis. FOLLOWUP: Surgeon, Dr. Sweet, plans to visit him on the inpatient rehabilitation unit, possibly 01/07/2018. Subjective: NO new problems or C/O's. No F/C/CP/SOB/N/V/D/C No complaints. Slept well though he reports he was up to urinate several times. Not in pain. No cough or dyspnea, no fevers or chills. Objective: Plan: Cont Dr Burnett rehab treatment plan 01/05/18 14:13 01/05/18 17:16 Objective: Vital Signs Temp Pulse Resp BP Pulse Ox 36.9 C 71 17 134/73 H 94 01/04/18 19:10 01/04/18 19:10 01/04/18 19:10 01/04/18 22:00 01/04/18 19:10 01/04/18 01/05/18 01/06/18 05:59 05:59 05:59 Intake Total 200 1070 680 Output Total 1225 2600 150 Balance -1025 -1530 530 Physical Exam - Physical Exam General Appearance: alert, no apparent distress Neck: supple Respiratory: lungs clear Cardiac/Chest: regular rate, rhythm Skin: normal color, warm/dry, other (wounds not undressed) Neuro/Psych: alert, oriented x 3 ICD10 Worksheet Patient Problems: Problems Problem Status Onset Diabetes type 2, uncontrolled Acute MRSA (methicillin resistant Staphylococcus aureus) Acute 02/19/16 Osteomyelitis of toe of left foot Acute
[2018-01-05] MEDS: LOSARTAN POTASSIUM 25 MG TAB PO SCH (20:44)
[2018-01-05] MEDS: RIVAROXABAN 20 MG TAB PO SCH (20:45)
[2018-01-05] MEDS: LATANOPROST 0.005% 2.5 ML OPHT DROPS EACHEYE SCH (20:50)
[2018-01-05] MEDS: LIXISENATIDE SQ SCH (20:54)
[2018-01-05] MEDS: INSULIN GLARGINE SQ SCH (20:54)
[2018-01-06] MEDS: THYROID PORK 15 MG PO SCH (06:06)
[2018-01-06] MEDS: INSULIN LISPRO 100 UNIT/ML SC SCH ×3 (08:21→17:50)
[2018-01-06] MEDS: SENNOSIDES/DOCUSATE SODIUM TAB PO SCH ×2 (09:45→20:30)
[2018-01-06] MEDS: OMEGA-3 FATTY ACIDS 1,000 MG CAP PO SCH (09:45)
[2018-01-06] MEDS: CHOLECALCIFEROL VIT D3 1,000 UNITS TAB PO SCH (09:46)
[2018-01-06] MEDS: DILTIAZEM CD 120 MG CAP PO SCH (09:46)
--- NOTE | 2018-01-06 11:45 | SOAPPROG ---
SOAP Progress Note Assessment/Plan: Assessment: * Recent Right vsegc-xkf-eajc amputation with history of remote left below-the- knee amputation. He is quite functional with his left prosthesis. He will have PT and OT to optimize his mobility and activities of daily living toward the modified independent level. * Wound care. The dressing is to be left intact and surgeon, Dr. Sweet, will visit him on the inpatient rehabilitation unit to follow up on surgery and remove the sutures. * Pain management appears to be adequate with his current oxycodone dose. He will be monitored regarding pain control, and medications will be adjusted as needed. * Diabetes mellitus type 2. FBS 141 this am. His blood sugars have been running somewhat high in the hospital. Will continue current medications as well as insulin sliding scale with lispro. He reports that he is closely managed by an shoe associate outside the hospital so most likely there will not be changes made in his medications. * Hypertension, adequately controlled. 122/77 this am. Continue losartan and diltiazem. * Atrial fibrillation. Continue rivaroxaban for anticoagulation and diltiazem for rate control. * Glaucoma. Continue latanoprost eyedrops. * Constipation. Continue senna/docusate and will consider additional medications as needed. *Prophylaxis: Rivaroxaban will be adequate for DVT prophylaxis. FOLLOWUP: Surgeon, Dr. Sweet, plans to visit him on the inpatient rehabilitation unit, possibly 01/07/2018. Subjective: NO new problems or C/O's. No F/C/CP/SOB/N/V/D/C Plan: Cont Dr Burnett rehab treatment plan 01/06/18 11:46 Objective: Vital Signs Temp Pulse Resp BP Pulse Ox 36.7 C 66 16 122/77 H 96 01/06/18 06:27 01/06/18 09:46 01/06/18 06:27 01/06/18 09:46 01/06/18 06:27 01/05/18 01/06/18 01/07/18 05:59 05:59 05:59 Intake Total 1070 1470 Output Total 2600 1850 450 Balance -1531 -359 -829 Physical Exam - Physical Exam General Appearance: alert, no apparent distress Neck: supple Respiratory: lungs clear Cardiac/Chest: regular rate, rhythm Skin: normal color, warm/dry, No other (R BKA incision dressed (several days post) with minimal serosanganous blotch on junction of mmiddle and distal outer third. No errythema, warmth, odor.) Extremities: normal range of motion Neuro/Psych: alert, normal mood/affect, oriented x 3 ICD10 Worksheet Patient Problems: Problems Problem Status Onset Diabetes type 2, uncontrolled Acute MRSA (methicillin resistant Staphylococcus aureus) Acute 02/19/16 Osteomyelitis of toe of left foot Acute
[2018-01-06] MEDS: LOSARTAN POTASSIUM 25 MG TAB PO SCH (20:30)
[2018-01-06] MEDS: RIVAROXABAN 20 MG TAB PO SCH (20:31)
[2018-01-06] MEDS: LIXISENATIDE SQ SCH (21:00)
[2018-01-06] MEDS: INSULIN GLARGINE SQ SCH (21:00)
[2018-01-07] MEDS: THYROID PORK 15 MG PO SCH (06:05)
[2018-01-07] MEDS: INSULIN LISPRO 100 UNIT/ML SC SCH ×3 (08:06→17:04)
[2018-01-07] MEDS: DILTIAZEM CD 120 MG CAP PO SCH (08:07)
[2018-01-07] MEDS: OMEGA-3 FATTY ACIDS 1,000 MG CAP PO SCH (08:07)
[2018-01-07] MEDS: SENNOSIDES/DOCUSATE SODIUM TAB PO SCH ×2 (08:08→21:04)
[2018-01-07] MEDS: CHOLECALCIFEROL VIT D3 1,000 UNITS TAB PO SCH (08:08)
--- NOTE | 2018-01-07 12:04 | PDOREHIP ---
Admission [facility] - Admission - 3 Day Assessment Period Admission Date/Day 1: 01/03/18 Day 2: 01/04/18 Day 3: 01/05/18 - Active Diagnoses Comorbidities and Co-existing Conditions at Admission: 87284. PVD or PAD, [address]. DM (e.g. diabetic retinopathy, nephropathy, and neuropathy) - Skin Conditions Unhealed Pressure Ulcer (1 or more/Stage 1 or >)-Admission: 0. No
--- NOTE | 2018-01-07 14:13 | SOAPPROG ---
SOAP Progress Note Assessment/Plan: Assessment: * Right xcjlf-fss-tztq amputation with history of left gxoju-glx-jrqe amputation. * Initial FIM 95 on 01/07/2018. Independent with bed mobility. Transfers require CGA to min A and cues for safety. Ambulated 50' FWW CGA. Self propels wheelchair 150 ft but needs assist up ramps. Climbed and descended a curb step with minimal assistance. He gets upper extremity fatigue and has decreased balance. Independent with upper body dressing, minimal assist for lower body dressing toilet transfer with contact guard assist. Toileting contact guard assist to minimal assist for balance. * PT is concerned regarding loose fit of left lower extremity prosthesis which may affect balance. Will get orthotics consult. * Continue PT and OT to optimize his mobility and activities of daily living toward the modified independent level. * Wound care. The dressing is to be left intact and surgeon, Dr. Sweet, will visit him on the inpatient rehabilitation unit to follow up on surgery and remove the sutures. * Pain management appears to be adequate with his current oxycodone dose. He will be monitored regarding pain control, and medications will be adjusted as needed. * Diabetes mellitus type 2. His blood sugars have been running somewhat high in the hospital. Will continue current medications as well as insulin sliding scale with lispro. He reports that he is closely managed by an billing administrator outside the hospital so most likely there will not be changes made in his medications. * Hypertension, adequately controlled. Continue losartan and diltiazem. * Atrial fibrillation. Continue rivaroxaban for anticoagulation and diltiazem for rate control. * Pharmacy to correct estimated GFR based on body surface area to ensure that he is not getting too high a dose of rivaroxaban; should be 15 mg q.day if GFR is less than 30. * Discussed rivaroxaban dosing and renal function with . * Glaucoma. Continue latanoprost eyedrops. * Constipation. Continue senna/docusate. *Prophylaxis: Rivaroxaban will be adequate for DVT prophylaxis. FOLLOWUP: Surgeon, Dr. Sweet, plans to visit him on the inpatient rehabilitation unit, possibly 01/07/2018. Follow up with billing administrator Dr. Victor Manuel Mayer after discharge if needed for improved blood sugar control. PRIMARY CARE PROVIDER: Dr. Rudy Jordan. Attended staffing, 15 min. D/W case mgmt, nursing, trap setter, pharmacy, PT, OT. Lives with his and children. He lives in a basement room. There is a chair lift. There are 3 steps to MD enter and a ramp. He may not be able to return to work soon as he needs to be able to drive. Exploring SSDI and VA benefits with social secretary. Discharge date set for 01/15/2018. Will have home PT and OT. 01/07/18 14:14 Objective: Vital Signs Temp Pulse Resp BP Pulse Ox 37.1 C 74 16 113/72 92 01/07/18 06:29 01/07/18 08:07 01/07/18 06:29 01/07/18 08:07 01/07/18 06:29 01/06/18 01/07/18 01/08/18 05:59 05:59 05:59 Intake Total 1470 1590 460 Output Total 1850 1450 750 Balance -380 140 -290 - Time Spent With Patient Time Spent With Patient: Greater than 35 min floor time today, including more than 50% of time in coordination of care during staffing meeting, and counseling patient and . ICD10 Worksheet Patient Problems: Problems Problem Status Onset Diabetes type 2, uncontrolled Acute MRSA (methicillin resistant Staphylococcus aureus) Acute 02/19/16 Osteomyelitis of toe of left foot Acute
[2018-01-07] MEDS: LOSARTAN POTASSIUM 25 MG TAB PO SCH (21:04)
[2018-01-07] MEDS: RIVAROXABAN 20 MG TAB PO SCH (21:04)
[2018-01-07] MEDS: LIXISENATIDE SQ SCH (21:05)
[2018-01-07] MEDS: INSULIN GLARGINE SQ SCH (21:05)
[2018-01-07] MEDS: LATANOPROST 0.005% 2.5 ML OPHT DROPS EACHEYE SCH (21:06)
[2018-01-08] MEDS: THYROID PORK 15 MG PO SCH (05:37)
[2018-01-08] MEDS: INSULIN LISPRO 100 UNIT/ML SC SCH ×3 (08:09→17:25)
[2018-01-08] MEDS: CHOLECALCIFEROL VIT D3 1,000 UNITS TAB PO SCH (08:45)
[2018-01-08] MEDS: DILTIAZEM CD 120 MG CAP PO SCH (08:45)
[2018-01-08] MEDS: SENNOSIDES/DOCUSATE SODIUM TAB PO SCH ×2 (08:45→20:45)
[2018-01-08] MEDS: OMEGA-3 FATTY ACIDS 1,000 MG CAP PO SCH (08:45)
--- NOTE | 2018-01-08 12:48 | SOAPPROG ---
SOAP Progress Note Assessment/Plan: Assessment: * Right xfjwa-wgz-qooq amputation with history of left xaxzc-ssv-itrs amputation. * Initial FIM 95 on 01/07/2018. Independent with bed mobility. Transfers require CGA to min A and cues for safety. Ambulated 50' FWW CGA. Self propels wheelchair 150 ft but needs assist up ramps. Climbed and descended a curb step with minimal assistance. He gets upper extremity fatigue and has decreased balance. Independent with upper body dressing, minimal assist for lower body dressing toilet transfer with contact guard assist. Toileting contact guard assist to minimal assist for balance. * Had orthotics consult with improved fit of left lower extremity prosthesis. * Continue PT and OT to optimize his mobility and activities of daily living toward the modified independent level. * Wound care. The dressing is to be left intact and surgeon. Follow up with surgeon Dr. Anton on the day of discharge, 01/10/2018, for staple removal and further assessment. * Pain is much improved. No oxycodone use since 01/06/2018. * Diabetes mellitus type 2. His blood sugars have been running somewhat high in the hospital. Will continue current medications as well as insulin sliding scale with lispro. He reports that he is closely managed by an range rider outside the hospital so most likely there will not be changes made in his medications. * Hypertension, adequately controlled. Continue losartan and diltiazem. * Atrial fibrillation. Continue rivaroxaban for anticoagulation and diltiazem for rate control. * Pharmacy corrected estimated GFR based on body surface area. Corrected GFR is 57. Rivaroxaban 20 mg q.day is appropriate. * Glaucoma. Continue latanoprost eyedrops. * Constipation. Continue senna/docusate. * Lymphoma. Being treated by oncologist Dr. Alonso. *Prophylaxis: Rivaroxaban will be adequate for DVT prophylaxis. FOLLOWUP: Surgeon, Dr. Sweet, after discharge on 01/10/2018. Follow up with range rider Dr. Victor Manuel Mayer after discharge if needed for improved blood sugar control. Follow up with Dr. Alonso regarding lymphoma. PRIMARY CARE PROVIDER: Dr. Rudy Jordan. Lives with his and children. He lives in a basement room. There is a chair lift. There are 3 steps to MD enter and a ramp. He may not be able to return to work soon as he needs to be able to drive. Exploring SSDI and VA benefits with social services designee. Discharge 01/10/2018. Will have home PT and OT. This patient needs a swing-away amputee residual limb support for his wheelchair . It will improve his safety and transfers and it is needed for edema control and optimization of joint range of motion. 01/08/18 14:51 Subjective: No complaints. Sleeping well. Not in pain. No fevers or chills, no cough or dyspnea. Objective: Vital Signs Temp Pulse Resp BP Pulse Ox 36.8 C 71 16 100/71 97 01/08/18 06:23 01/08/18 08:45 01/08/18 06:23 01/08/18 08:45 01/08/18 06:23 01/07/18 01/08/18 01/09/18 05:59 05:59 05:59 Intake Total 1590 700 476 Output Total 1450 2100 600 Balance 140 -1400 -124 Physical Exam - Physical Exam General Appearance: WD/WN, alert, no apparent distress, obese Respiratory: No respiratory distress, No accessory muscle use Skin: normal color, warm/dry Neuro/Psych: no motor/sensory deficits, alert, normal mood/affect, oriented x 3 ICD10 Worksheet Patient Problems: Problems Problem Status Onset Diabetes type 2, uncontrolled Acute MRSA (methicillin resistant Staphylococcus aureus) Acute 02/19/16 Osteomyelitis of toe of left foot Acute
[2018-01-08] MEDS: RIVAROXABAN 20 MG TAB PO SCH (20:45)
[2018-01-08] MEDS: LOSARTAN POTASSIUM 25 MG TAB PO SCH (20:45)
[2018-01-08] MEDS: LATANOPROST 0.005% 2.5 ML OPHT DROPS EACHEYE SCH (20:47)
[2018-01-08] MEDS: INSULIN GLARGINE SQ SCH (20:48)
[2018-01-08] MEDS: LIXISENATIDE SQ SCH (20:48)
[2018-01-09] MEDS: THYROID PORK 15 MG PO SCH (05:59)
[2018-01-09] MEDS: SENNOSIDES/DOCUSATE SODIUM TAB PO SCH ×2 (08:43→21:45)
[2018-01-09] MEDS: CHOLECALCIFEROL VIT D3 1,000 UNITS TAB PO SCH (08:43)
[2018-01-09] MEDS: OMEGA-3 FATTY ACIDS 1,000 MG CAP PO SCH (08:43)
[2018-01-09] MEDS: INSULIN LISPRO 100 UNIT/ML SC SCH ×3 (08:43→17:29)
[2018-01-09] MEDS: DILTIAZEM CD 120 MG CAP PO SCH (08:44)
--- NOTE | 2018-01-09 18:15 | SOAPPROG ---
SOAP Progress Note Assessment/Plan: Assessment: * Right bfskh-uim-nczo amputation with history of left qzlfm-lkg-wxlf amputation. * Initial FIM 95 on 01/07/2018. Independent with bed mobility. Transfers require CGA to min A and cues for safety. Ambulated 50' FWW CGA. Self propels wheelchair 150 ft but needs assist up ramps. Climbed and descended a curb step with minimal assistance. He gets upper extremity fatigue and has decreased balance. Independent with upper body dressing, minimal assist for lower body dressing toilet transfer with contact guard assist. Toileting contact guard assist to minimal assist for balance. * Had orthotics consult with improved fit of left lower extremity prosthesis. * Has progressed to independent in his room. * Continue PT and OT to optimize his mobility and activities of daily living toward the modified independent level. * Wound care. The dressing is to be left intact and surgeon. Follow up with surgeon Dr. Anton on the day of discharge, 01/10/2018, for staple removal and further assessment. * Pain is much improved. No oxycodone use since 01/05/2018. * Diabetes mellitus type 2. His blood sugars have been running somewhat high in the hospital. Will continue current medications as well as insulin sliding scale with lispro. He reports that he is closely managed by an brand analyst outside the hospital so most likely there will not be changes made in his medications. * Hypertension, adequately controlled. Continue losartan and diltiazem. * Atrial fibrillation. Continue rivaroxaban for anticoagulation and diltiazem for rate control. * Pharmacy corrected estimated GFR based on body surface area. Corrected GFR is 57. Rivaroxaban 20 mg q.day is appropriate. * Glaucoma. Continue latanoprost eyedrops. * Constipation. Continue senna/docusate. * Lymphoma. Being treated by oncologist Dr. Alonso. *Prophylaxis: Rivaroxaban will be adequate for DVT prophylaxis. FOLLOWUP: Surgeon, Dr. Sweet, after discharge on 01/10/2018. Follow up with brand analyst Dr. Victor Manuel Mayer after discharge if needed for improved blood sugar control. Follow up with Dr. Alonso regarding lymphoma. PRIMARY CARE PROVIDER: Dr. Rudy Jordan. Lives with his and children. He lives in a basement room. There is a chair lift. There are 3 steps to MD enter and a ramp. He may not be able to return to work soon as he needs to be able to drive. Exploring SSDI and VA benefits with secondary social studies teacher. Discharge 01/10/2018. Will have home PT and OT. This patient needs a swing-away amputee residual limb support for his wheelchair . It will improve his safety and transfers and it is needed for edema control and optimization of joint range of motion. 01/09/18 18:14 Subjective: No complaints. Participating in therapy. Thinks he has improved balance. Objective: Vital Signs Temp Pulse Resp BP Pulse Ox 36.7 C 76 18 107/68 95 01/09/18 08:00 01/09/18 08:44 01/09/18 08:00 01/09/18 08:44 01/09/18 08:00 01/08/18 01/09/18 01/10/18 05:59 05:59 05:59 Intake Total 700 2086 630 Output Total 2100 2500 Balance -1400 -414 630 Physical Exam - Physical Exam General Appearance: WD/WN, alert, no apparent distress, obese Respiratory: normal breath sounds, No crackles, No rhonchi, No wheezing Cardiac/Chest: regular rate, rhythm, No diastolic murmur, No systolic murmur Skin: normal color, warm/dry Neuro/Psych: no motor/sensory deficits, alert, normal mood/affect, oriented x 3 ICD10 Worksheet Patient Problems: Problems Problem Status Onset Diabetes type 2, uncontrolled Acute MRSA (methicillin resistant Staphylococcus aureus) Acute 02/19/16 Osteomyelitis of toe of left foot Acute
[2018-01-09] MEDS: LOSARTAN POTASSIUM 25 MG TAB PO SCH (21:45)
[2018-01-09] MEDS: LATANOPROST 0.005% 2.5 ML OPHT DROPS EACHEYE SCH (21:48)
[2018-01-09] MEDS: RIVAROXABAN 20 MG TAB PO SCH (21:49)
[2018-01-09] MEDS: LIXISENATIDE SQ SCH (21:51)
[2018-01-09] MEDS: INSULIN GLARGINE SQ SCH (21:51)
[2018-01-10] MEDS: THYROID PORK 15 MG PO SCH (06:04)
[2018-01-10] MEDS: SENNOSIDES/DOCUSATE SODIUM TAB PO SCH ×2 (08:55→22:07)
[2018-01-10] MEDS: CHOLECALCIFEROL VIT D3 1,000 UNITS TAB PO SCH (08:56)
[2018-01-10] MEDS: INSULIN LISPRO 100 UNIT/ML SC SCH ×3 (08:56→17:09)
[2018-01-10] MEDS: OMEGA-3 FATTY ACIDS 1,000 MG CAP PO SCH (08:56)
[2018-01-10] MEDS: DILTIAZEM CD 120 MG CAP PO SCH (08:57)
--- NOTE | 2018-01-10 10:51 | PDOREHIP ---
Admission [facility] - Admission - 3 Day Assessment Period Admission Date/Day 1: 01/03/18 Day 2: 01/04/18 Day 3: 01/05/18 Discharge [facility] - Discharge - 3 Day Assessment Period 2 Days Prior to Anticipated Discharge Date: 01/09/18 1 Day Prior to Anticipated Discharge Date: 01/10/18 Anticipated Discharge Date: 01/11/18 - Discharge Skin Conditions Unhealed Pressure Ulcer (1 or more/Stage 1 or >)-Discharge: 0. No
--- NOTE | 2018-01-10 13:29 | SOAPPROG ---
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 Overall his pain level is improving. Dressing changed today , following up with Dr. Anton tomorrow. Discharging tomorrow, the over 35 min spent on the floor in the care of the patient, the majority of which was spent in the preparation of discharge in the counseling and coordination of that care. Also counseled him on phantom limb and management strategies. He is currently not interested in pharmacologic management but I counseled him on with those options might be. Additional issues that were reviewed without significant change include diabetes mellitus type 2, which is stable on his home dose of insulin with occasional sliding scale, hypertension, atrial fibrillation, glaucoma, constipation, lymphoma, and prophylaxis. Anticipated discharge date is tomorrow 01/11, following up with multiple providers as noted in the discharge paperwork. 01/10/18 13:26 Subjective: Chief complaint: Phantom limb sensation No acute events overnight. Patient denies any shortness of breath or chest pain , no new numbness, tingling, or weakness. He endorses ongoing bilateral phantom limb sensations, he has had left-sided that were longstanding and now also has right-sided. He also notes that curiously his left-sided phantom limb symptoms are Min making his right-sided symptoms, such as feeling the incision on his left leg when really the wound is on the right. He states that the sensations consonant be shooting, burning, tingling, or painful. He notes that there is a slight area of pressure on the right lateral aspect of the wound. Wound was taken down by nursing and observed. Wound healing well with some scant breakthrough fluid. Very scant redness, a little bit on right lateral aspect of the wound. No dehiscence, sutures and ketan in place. Objective: Vital Signs Temp Pulse Resp BP Pulse Ox 36.9 C 73 17 113/68 97 01/10/18 06:08 01/10/18 08:57 01/09/18 20:00 01/10/18 08:57 01/10/18 06:08 01/09/18 01/10/18 01/11/18 05:59 05:59 05:59 Intake Total 2086 1130 480 Output Total 2500 1300 500 Balance -414 -170 -20 Physical Exam - Physical Exam General Appearance: WD/WN, alert, no apparent distress EENT: No scleral icterus (R), No scleral icterus (L) Respiratory: normal breath sounds, No respiratory distress Cardiac/Chest: normal peripheral pulses, regular rate, rhythm Skin: normal color, warm/dry, other (See description in the subjective section above for details), No cyanosis Extremities: No swelling Neuro/Psych: alert, normal mood/affect, oriented x 3, No motor weakness ICD10 Worksheet Patient Problems: Problems Problem Status Onset Diabetes type 2, uncontrolled Acute MRSA (methicillin resistant Staphylococcus aureus) Acute 02/19/16 Osteomyelitis of toe of left foot Acute
--- NOTE | 2018-01-10 18:56 | GDS ---
[f rep st] DISCHARGE SUMMARY DATE OF DISCHARGE: Scheduled for 01/11/2018. ADMISSION DIAGNOSIS: Debility, status post right-sided uwkoj-ooc-nomd amputation, with history of left-sided yebkr-wse-czhb amputation. OTHER DISCHARGE DIAGNOSES: 1. Diabetes mellitus type 2. 2. Hypertension. 3. Atrial fibrillation. HISTORY AND HOSPITAL COURSE: This patient was admitted to [facility] with osteomyelitis of the right foot. He had had a prior osteomyelitis of the left foot and a rixbn-uax-gbcf amputation in 2016, and had been quite functional with a prosthesis on the left. Due to the osteomyelitis on the right foot, he underwent a right cvuvn-nro-nvua amputation. He was medically stabilized and admitted to inpatient rehabilitation. He did well in rehabilitation and rapidly regained function. His initial functional independence measure on 01/07/2018 was 95, which is consistent with a high level of assisted living level of function. He was independent with bed mobility, he needed contact guard assist to minimal assist for transfers with cues for safety. He was able to ambulate 50 feet with a front-wheeled walker and contact guard assist. He could self propel his wheelchair for 150 feet but needed assist to go up ramps. He was able to climb and descend a curb step with minimal assistance. He was independent with upper body dressing and required minimal assist for lower body dressing and contact guard assist for toilet transfers. He had an orthotics consult for the fit of his left lower extremity prosthesis, and with improved fit, he had improved balance. He progressed subsequently to independent in his room, not needing any assistance with mobility or activities of daily living. He had minimal pain and used no oxycodone after 01/05/2018. Diabetes mellitus type 2: Blood sugars ran somewhat high and on the day before discharge, his fasting was 156. Otherwise, he was ranging as high as 198. He is on a combination insulin and lixisenatide injection managed by an health counselor. He also had a sliding scale of insulin while he was in the rehabilitation unit and his insulin dosing was not changed. He can follow up with his health counselor. Hypertension and atrial fibrillation: He continued on anticoagulation, blood pressure medications and rate control. His blood pressure and heart rate were well controlled. CONDITION UPON DISCHARGE: Good. ACTIVITY: Ad marleni, but he should not be driving and should consider getting hand controls his vehicle. DIET: Regular with no concentrated carbohydrates. WOUND CARE: His wound dressing was not changed, and he will follow up with surgeon, Dr. Sweet. MEDICATIONS ON DISCHARGE: 1. Cholecalciferol 1000 units p.o. daily. 2. Diltiazem ER 120 mg p.o. daily. 3. Insulin glargine/lixisenatide 20 units subcutaneous q.h.s. 4. Latanoprost 1 drop each eye q.h.s. 5. Losartan 25 mg p.o. q.h.s. 6. Melatonin 3 tabs 3 mg p.o. q.h.s. p.r.n. 7. Rivaroxaban 20 mg p.o. at bedtime. 8. [place] Thyroid 15 mg p.o. q.h.s. ISSUES TO BE ADDRESSED AT FOLLOWUP: 1. Functional status. He will have home physical and occupational therapy. He can follow up with his primary care provider, Dr. Jordan, regarding his progress. 2. Diabetes mellitus type 2. To follow up with his health counselor, Dr. Mayer. 3. Status post right tzknw-trg-wifv amputation. He will follow up with surgeon , Dr. Sweet. Copy requested to: Dr. Mary Jordan /[id number]/MODL MTDD
[2018-01-10] MEDS: LOSARTAN POTASSIUM 25 MG TAB PO SCH (22:07)
[2018-01-10] MEDS: RIVAROXABAN 20 MG TAB PO SCH (22:07)
[2018-01-10] MEDS: LIXISENATIDE SQ SCH (22:08)
[2018-01-10] MEDS: INSULIN GLARGINE SQ SCH (22:08)
[2018-01-10] MEDS: LATANOPROST 0.005% 2.5 ML OPHT DROPS EACHEYE SCH (22:08)
[2018-01-11] MEDS: THYROID PORK 15 MG PO SCH (05:37)
[2018-01-11] MEDS: INSULIN LISPRO 100 UNIT/ML SC SCH ×2 (08:56→12:31)
[2018-01-11] MEDS: OMEGA-3 FATTY ACIDS 1,000 MG CAP PO SCH (08:56)
[2018-01-11] MEDS: DILTIAZEM CD 120 MG CAP PO SCH (08:56)
[2018-01-11] MEDS: CHOLECALCIFEROL VIT D3 1,000 UNITS TAB PO SCH (08:56)
[2018-01-11 08:57] VITALS: BP 111/68
[2018-01-11] MEDS: SENNOSIDES/DOCUSATE SODIUM TAB PO SCH (09:14)
== END 2018-01-11 12:38 | disposition home health service (06) | DRG 560 ==
LOC: BREH 01-03 12:15
PROVIDERS: ADMIT Internal Medicine; ATTEND Internal Medicine
PROC: F07Z9FZ Gait Training/Functional Ambulation Treatment using Assistive, Adaptive, Supportive or Protective Equipment (ICD-10-PCS; principal; 2018-01-03)
PROC: F08Z2FZ Grooming/Personal Hygiene Treatment using Assistive, Adaptive, Supportive or Protective Equipment (ICD-10-PCS; principal; 2018-01-03)
PROC: F07Z8FZ Transfer Training Treatment using Assistive, Adaptive, Supportive or Protective Equipment (ICD-10-PCS; principal; 2018-01-03)
PROC: F07Z5FZ Bed Mobility Treatment using Assistive, Adaptive, Supportive or Protective Equipment (ICD-10-PCS; principal; 2018-01-03)
PROC: F07Z4FZ Wheelchair Mobility Treatment using Assistive, Adaptive, Supportive or Protective Equipment (ICD-10-PCS; principal; 2018-01-03)
DX: Z47.81 Encounter for orthopedic aftercare following surgical amputation (principal); Z89.511 Acquired absence of right leg below knee; Z89.512 Acquired absence of left leg below knee; E11.69 Type 2 diabetes mellitus with other specified complication; M86.9 Osteomyelitis, unspecified; E11.43 Type 2 diabetes mellitus with diabetic autonomic (poly)neuropathy; G62.9 Polyneuropathy, unspecified; I10 Essential (primary) hypertension; E03.9 Hypothyroidism, unspecified; I48.0 Paroxysmal atrial fibrillation; H40.9 Unspecified glaucoma; I27.20 Pulmonary hypertension, unspecified
CPT/HCPCS: 97110-GO; 97110-GP; 97116-GP; 97162-GP; 97166-GO; 97530-GO; 97530-GP; 97535-GO; 97542-GP; J1815

== ENCOUNTER → 2018-08-15 | Outpatient (CLI) | payer OTHER ==
[~2018-08-15] MED LIST: GADOBUTROL 10 ML VIAL IVP ONE
== END ==
LOC: FIMAGING 11:28
PROVIDERS: ATTEND Surgery
DX: Z47.81 Encounter for orthopedic aftercare following surgical amputation (principal); Z89.511 Acquired absence of right leg below knee; M86.9 Osteomyelitis, unspecified
CPT/HCPCS: 82565-PO; A9585

== ENCOUNTER 2018-09-16 13:06 | Inpatient (IN) | payer OTHER ==
--- NOTE | 2018-09-16 13:34 | EDPHY ---
H & P Stated Complaint: CANCER PT FEVER/COUGH/BODY ACHES X 6 DAYS Time Seen by Provider: 09/16/18 13:34 HPI/ROS: CHIEF COMPLAINT: Flu-like illness HISTORY OF PRESENT ILLNESS: The patient presents to the ED with a 6 day history of fever, cough and myalgias. The patient has a history of lymphoma however is currently in remission. The patient denies any recent antibiotic use. He has developed vomiting and diarrhea over the past day. The patient denies any recent travel outside the [place]. The patient did not receive a flu shot this year. The patient does have a history of diabetes which has resulted in bilateral lower extremity amputations. The patient denies any pain, swelling or erythema in his lower extremities. The patient reports that he is having fairly severe myalgias. The patient denies additional acute complaints. REVIEW OF SYSTEMS: A comprehensive 10 point review of systems is otherwise negative aside from elements mentioned in the history of present illness. Source: Patient - Personal History Current Tetanus Diphtheria and Acellular Pertussis (TDAP): Yes - Medical/Surgical History Hx Asthma: No Hx Chronic Respiratory Disease: No Hx Diabetes: Yes Hx Cardiac Disease: No Hx Renal Disease: Yes Hx Cirrhosis: No Hx Alcoholism: No Hx HIV/AIDS: No Hx Splenectomy or Spleen Trauma: No Other PMH: INFECTION, DEANNE ANKLE SURG, ORTHO SURG, DM II, Kidney stones - amputation 4-5 digit R toes, polyps on thyroid, BKA, nonhodgkins lymphona stage IIa, HTN, PVD, Afib, SHAKIR, right shoulder rotator cuff tear - Social History Smoking Status: Never smoked - Physical Exam Exam: General Appearance: Alert, no distress Eyes: Pupils equal and round no pallor or injection ENT, Mouth: Mucous membranes moist Respiratory: There are no retractions, lungs are clear to auscultation Cardiovascular: Regular rate and rhythm Gastrointestinal: Abdomen is soft and nontender, no masses, bowel sounds normal Neurological: A&O, normal motor function, normal sensory exam, normal cranial nerves Skin: Warm and dry, no rashes Musculoskeletal: Bilateral lower extremity BKA amputations Extremities: symmetrical, full range of motion Constitutional: Initial Vital Signs Temperature (C) 36.7 C 09/16/18 13:11 Heart Rate 76 09/16/18 13:11 Respiratory Rate 18 09/16/18 13:11 Blood Pressure 82/55 L 09/16/18 13:11 O2 Sat (%) 93 09/16/18 13:11 O2 Delivery Mode Room Air Allergies/Adverse Reactions: allopurinol Allergy (Intermediate, Verified 09/16/18 13:09) gastric upset Penicillins Allergy (Intermediate, Verified 09/16/18 13:09) generalized itchiness; nausea ciprofloxacin HCl [From Cipro] Allergy (Verified 09/16/18 13:09) personality changes linezolid [From Zyvox] Allergy (Verified 09/16/18 13:09) suicidal and hallucinagenic Home Medications: Medication Instructions Recorded [place]-3 Fatty Acids [Fish Oil 1000 1,000 mg PO DAILY 10/31/17 mg (*)] Cholecalciferol Vit D3 [Vitamin D3 1,000 units PO DAILY #30 tab 01/10/18 (*)] Diltiazem Cd [Cardizem ER 120 MG 120 mg PO DAILY #30 cap 01/10/18 (*)] Insulin Glargine/Lixisenatide 20 unit SQ HS #10 insuln.pen 01/10/18 [[place] 100 Unit-33 Mcg/ml Pen] Latanoprost 0.005% [Xalatan 0.005% 1 drops EACHEYE HS #1 opht.btl 01/10/18 (*)] Losartan Potassium [Cozaar 25 mg 25 mg PO HS #30 tab 01/10/18 (*)] Melatonin [Melatonin 3 MG (*)] 3 mg PO HS PRN #30 tab 01/10/18 Rivaroxaban [Xarelto] 20 mg PO HS #30 tab 01/10/18 Thyroid,Pork [ARMOUR THYROID] 15 mg PO HS #30 tablet 01/10/18 Medical Decision Making - Diagnostics Imaging Results: Imaging Impressions Chest X-Ray 09/16/18 13:35 Impression: Moderate bronchitis. ED Course/Re-evaluation: The patient presents the emergency department with influenza like illness for the past 5 days. The patient is dehydrated and is having vomiting diarrhea over the past day. The patient was noted to be neurologically intact. He has no meningeal symptoms. The patient's chest x-ray demonstrates no evidence of obvious pneumonia. Patient did received 2 L of normal saline in the emergency department. His creatinine was noted to be elevated at 2.7. The patient's sodium slightly low at 125. Patient will require admission to the hospital for further resuscitation and treatment. Consultation is made with Dr. Blake Bridges from the hospitalist service. I re-evaluated the patient at 3:00 p.m.. He is feeling better after receiving IV fluids. His hypotension has resolved and his blood pressure is now 110/62. Differential Diagnosis: Differential diagnosis considered includes dehydration, metabolic abnormality, influenza, pneumonia, renal failure, hyperkalemia - Data Points Laboratory Results: Laboratory Results 09/16/18 13:30 09/16/18 13:30 09/16/18 09/16/18 09/16/18 13:30 13:30 13:30 WBC 6.24 10^3/uL 10^3/uL (3.80-9.50) RBC 4.64 10^6/uL 10^6/uL (4.40-6.38) Hgb 13.8 g/dL g/dL (13.7-17.5) Hct 37.8 % L % (40.0-51.0) MCV 81.5 fL fL (81.5-99.8) MCH 29.7 pg pg (27.9-34.1) MCHC 36.5 g/dL g/dL (32.4-36.7) RDW 12.3 % % (11.5-15.2) Plt Count 243 10^3/uL 10^3/uL (150-400) MPV 11.0 fL fL (8.7-11.7) Neut % (Auto) 74.8 % H % (39.3-74.2) Lymph % (Auto) 15.9 % % (15.0-45.0) Evangeline % (Auto) 8.3 % % (4.5-13.0) Eos % (Auto) 0.2 % L % (0.6-7.6) Baso % (Auto) 0.3 % % (0.3-1.7) Nucleat RBC Rel Count 0.0 % % (0.0-0.2) Absolute Neuts (auto) 4.67 10^3/uL 10^3/uL (1.70-6.50) Absolute Lymphs (auto) 0.99 10^3/uL L 10^3/uL (1.00-3.00) Absolute Monos (auto) 0.52 10^3/uL 10^3/uL (0.30-0.80) Absolute Eos (auto) 0.01 10^3/uL L 10^3/uL (0.03-0.40) Absolute Basos (auto) 0.02 10^3/uL 10^3/uL (0.02-0.10) Absolute Nucleated RBC 0.00 10^3/uL 10^3/uL (0-0.01) Immature Gran % 0.5 % % (0.0-1.1) Immature Gran # 0.03 10^3/uL 10^3/uL (0.00-0.10) VBG Lactic Acid 1.6 mmol/L mmol/L (0.7-2.1) Sodium 125 mEq/L L mEq/L (135-145) Potassium 4.1 mEq/L mEq/L (3.5-5.2) Chloride 98 mEq/L mEq/L (97-110) Carbon Dioxide 14 mEq/l L mEq/l (22-31) Anion Gap 13 mEq/L mEq/L (6-14) BUN 56 mg/dL H mg/dL (7-23) Creatinine 2.7 mg/dL H mg/dL (0.7-1.3) Estimated GFR 24 Glucose 222 mg/dL H mg/dL (70-100) Calcium 8.1 mg/dL L mg/dL (8.5-10.4) Nasal Influenza A PCR Nasal Influenza B PCR 09/16/18 13:16 WBC RBC Hgb Hct MCV MCH MCHC RDW Plt Count MPV Neut % (Auto) Lymph % (Auto) Evangeline % (Auto) Eos % (Auto) Baso % (Auto) Nucleat RBC Rel Count Absolute Neuts (auto) Absolute Lymphs (auto) Absolute Monos (auto) Absolute Eos (auto) Absolute Basos (auto) Absolute Nucleated RBC Immature Gran % Immature Gran # VBG Lactic Acid Sodium Potassium Chloride Carbon Dioxide Anion Gap BUN Creatinine Estimated GFR Glucose Calcium Nasal Influenza A PCR FLU A DETECTED H (NEGATIVE) Nasal Influenza B PCR NEGATIVE FOR FLU B (NEGATIVE) Medications Given: Discontinued Medications Sodium Chloride (Ns) 1,000 mls @ 0 mls/hr IV ONCE ONE; Wide Open PRN Reason: Protocol Stop: 09/16/18 13:36 Last Admin: 01/14/19 14:02 Dose: 1,000 mls Departure - Departure Disposition: [facility] Acute Clinical Impression: Influenza, Dehydration, Renal failure, acute Condition: Fair
[2018-09-16] MEDS ORDERED: NS 1,000 ML IV ONE (13:35)
[2018-09-16 13:43] LABS: PLATELET COUNT 243 10^3/uL (150-400)
[2018-09-16] MEDS ORDERED: ONDANSETRON DISINTEGRATING 4 MG TAB PO PRN (14:35)
[2018-09-16] MEDS ORDERED: D50W 25 GM/50 ML SYR IVP PRN (14:39)
[2018-09-16] MEDS ORDERED: PROMETHAZINE HCL 25 MG/ML INJ IVP PRN (14:41)
[2018-09-16] MEDS ORDERED: OSELTAMIVIR PHOSPHATE 75 MG CAP PO SCH (14:45)
--- NOTE | 2018-09-16 15:12 | GHP ---
DATE OF ADMISSION: 09/16/2018 The patient is a pleasant 58-year-old gentleman with a history of lymphoma, diabetes, peripheral vasc ular disease, bilateral BKA's who presents to the hospital today with 5 days of fever, myalgias, weak ness, malaise, vomiting, diarrhea, cough productive of yellow sputum, and poor p.o. intake. Last nig ht, he was unable to sleep and therefore, ultimately sought care. It sounds like he held off because of the snow on Sunday, and he felt okay over the weekend. He his right BKA was performed about November of this year. Is healing well. He really has no other si gnificant complaints than eating poorly. He has not been taking insulin because of poor p.o. intake. He did not get a flu shot this year. REVIEW OF SYSTEMS: Complete 10-point review of systems conducted, negative except as noted in the HP I. PAST MEDICAL HISTORY: 1. Diabetes with peripheral vascular disease and bilateral BKA. 2. Lymphoma. Further details not available. 3. Atrial fibrillation on anticoagulation. 4. Diabetic neuropathy. 5. Chronic kidney disease. 6. Thyroid nodule with negative biopsy. 7. Mesenteric mass. ALLERGIES: Allopurinol, Penicillin, ciprofloxacin and linezolid. HOME MEDICATIONS: A prelim list includes vitamin D3, diltiazem 120, 20 of Lantus, latanoprost, losar huitron, melatonin, fish oil, rivaroxaban, pork thyroid. 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 No alcohol. No tobacco. FAMILY HISTORY: Reviewed and unremarkable. PHYSICAL EXAM: VITALS: Presenting vitals today temp 36.7, blood pressure 82/55, now improved, pulse 76, breathing 18 times a minute, on room air. GENERAL: No acute distress. HEENT: Scle alexis anicteric. Oropharynx clear. Mucous membranes moist. NECK: Supple without lymphadenopathy or JVD. LUNGS: Clear to auscultation bilaterally. There are some crackles at the right base that steve r with coughing. ABDOMEN: Soft, nontender, nondistended. LOWER EXTREMITIES: His BKA sites are hea ling well. There is no other rash. SKIN: Without rash. NEUROLOGIC: Nonfocal. LABS: White count 6.2, hematocrit 38, platelets are 243,000. Venous lactate is 1.6, normal value. Sodium 125. He does not typically have low sodium. Potassium 4.1, chloride 98, bicarb 14, BUN 56, c reatinine 2.7, his baseline is about 1.4. Glucose 222 which per his family is where it has been runn ing. Calcium is low at 8.1. Influenza A. Notably, he was influenza B positive in November of this yea r. He did not get a flu shot this year. Chest x-ray interpreted by me shows left lower lobe scarrin g but no acute infiltrate. I have discussed the case Dr. Jerrell Rodrigez. ASSESSMENT/PLAN: A 58-year-old gentleman admitted with influenza, malaise, acute kidney injury, hypo natremia. 1. Influenza. Given his comorbidities and acute illness, we will treat with Tamiflu 30 daily, dose adjusted for renal failure. Will follow with the pharmacy to increase it as his renal failure improv es which I suspect it will. 2. Acute kidney injury. This is likely pre-renal. Given his history, we will follow as we resuscit ate. 3. Hyponatremia. This is hypovolemic hyponatremia. The patient does not have mental status changes . He requires volume resuscitation given his concomitant hypotension. I will repeat a value now and follow its results. 4. Sepsis. The patient has a source of infection with hypotension and end-organ injury. This is co nsistent with sepsis. 5. Diabetes, type [address] him on a lispro sliding scale alone. 6. Prophylaxis. Sequential compression devices. 7. Metabolic acidosis. This is probably poor p.o. intake as well as diarrhea. 8. Diarrhea. It is reasonable to check a clostridium difficile given a lot of antibiotic exposure. 9. Crackles in the right base. The patient has a clear chest x-ray. We will follow. DISPOSITION: Inpatient status. /[id number]/MODL
[2018-09-16] MEDS: NS 1,000 ML IV SCH (16:52)
--- NOTE | 2018-09-16 17:07 | PDMN ---
Medical Necessity Medical necessity: MCG: M160 sepsis and other febrile illness: 58 yr old M with PMHx: lymphoma, DM, peripheral vascular disease, Bilateral knee amputations ( november 2017) , chronic kidney disease( current BUN 56, Cr 2.7) , thyroid nodule, mesenteric mass. presents with 5 days fever, myalgia's, weakness, malaise, N/V/D, , productive coughO2 sats 89-93% RA, , poor PO intake , hypotensive, hyponatremic.( 125) influenza A +, anticipate > 2 MN ongoing med nec care, further monitoring, eval and tx.
[2018-09-16] MEDS: INSULIN LISPRO 100 UNIT/ML SC SCH (17:34)
[2018-09-16] MEDS: OSELTAMIVIR 6 MG/ML UDSYR PO SCH (17:34)
[2018-09-16] MEDS: ACETAMINOPHEN 325 MG TAB PO PRN (20:10)
[2018-09-16] MEDS: RIVAROXABAN 15 MG TAB PO SCH (20:10)
[2018-09-16] MEDS ORDERED: INSULIN GLARGINE 100 UNITS/ML UNIT SC ONE (21:00)
[2018-09-16] MEDS: LATANOPROST 0.005% 2.5 ML OPHT DROPS EACHEYE SCH (21:54)
[2018-09-16] MEDS: traZODone 50 MG TAB PO PRN (22:05)
[2018-09-17] MEDS: NS 1,000 ML IV SCH (01:22)
[2018-09-17 06:11] LABS: PLATELET COUNT 206 10^3/uL (150-400)
[2018-09-17] MEDS: INSULIN LISPRO 100 UNIT/ML SC SCH ×3 (08:22→18:12)
[2018-09-17] MEDS: OMEGA-3 FATTY ACIDS 1,000 MG CAP PO SCH (09:18)
[2018-09-17] MEDS: POTASSIUM CITRATE 10 MEQ TAB PO SCH (09:18)
[2018-09-17] MEDS: DILTIAZEM CD 120 MG CAP PO SCH (09:18)
[2018-09-17] MEDS: THYROID 60 MG TAB PO SCH (09:18)
[2018-09-17] MEDS: OSELTAMIVIR 6 MG/ML UDSYR PO SCH ×2 (09:20→21:01)
[2018-09-17] MEDS ORDERED: Dulaglutide [Trulicity] 1.5 MG SC SCH (10:30)
--- NOTE | 2018-09-17 11:28 | HOSPPROG ---
Hospitalist Progress Note Assessment/Plan: Influenza - Flu A positive on admission - CXR on admission showing moderate bronchitis - Continue Tamiflu 30 mg BID, increased from qd due to improvement in GFR - Supportive care ERIC on CKD - Cr 2.7 on admission, baseline - Likely prerenal, s/p IVF overnight, Cr improved to 2.3 this AM - Continue to monitor BMP, I/O, avoid nephrotoxic agents Hyponatremia - In setting of decreased PO intake - Na improved from 125 to 128 this AM - Continue IVF - Repeat Na in the AM Sepsis - Meeting SIRS criteria on admission with fever, tachycardia - S/p 2L IVF in the ED, continued on mIVF overnight - Management of Flu as above T2DM - Continue home long acting insulin as well as SSI as IP Diarrhea - Likely 2/2 to viral syndrome - C Diff ordered overnight, results pending, if negative, will start anti- diarrheal PPx: SCDs Code: FULL Dispo: Pending clinical course Subjective: Patient reports some improvement overall this morning Objective: Vital Signs Temp Pulse Resp BP Pulse Ox 38.1 C 110 H 18 122/72 H 93 09/17/18 07:55 09/17/18 09:18 09/17/18 07:55 09/17/18 07:55 09/17/18 07:55 Laboratory Results 09/17/18 04:59 09/17/18 04:59 09/16/18 09/17/18 09/18/18 05:59 05:59 05:59 Intake Total 2300 Balance 2300 - Physical Exam Constitutional: no apparent distress Eyes: PERRL Ears, Nose, Mouth, Throat: moist mucous membranes Cardiovascular: tachycardia Respiratory: bronchial breath sounds Gastrointestinal: soft, non-tender abdomen Neurologic: AAOx3 Psychiatric: interacting appropriately ICD10 Worksheet Patient Problems: Problems Problem Status Onset Dehydration Acute Influenza Acute Renal failure, acute Acute Diabetes type 2, uncontrolled Acute MRSA (methicillin resistant Staphylococcus aureus) Acute 02/19/16 Osteomyelitis of toe of left foot Acute
[2018-09-17] MEDS: ACETAMINOPHEN 325 MG TAB PO PRN (11:29)
--- NOTE | 2018-09-17 11:38 | ASMTCMCOM ---
CM Note CM Note Notes: Pt is a 58 y/o man admitted for fever, myalgias, weakness, malaise, vomiting, diarrhea and cough with yellow sputum and poor po intake. Pt has a bilateral BKA. Therapies have been ordered and awaiting recommendations. Needs are TBD at this time. CM to follow. Plan: TBD Date Signed: 09/17/2018 11:37 AM Electronically Signed By:POOJA Sevilla
[2018-09-17] MEDS ORDERED: LOPERAMIDE HCL 2 MG CAP PO PRN (17:09)
[2018-09-17] MEDS: LATANOPROST 0.005% 2.5 ML OPHT DROPS EACHEYE SCH (20:59)
[2018-09-17] MEDS: RIVAROXABAN 15 MG TAB PO SCH (21:01)
[2018-09-17] MEDS: INSULIN GLARGINE 100 UNITS/ML UNIT SC SCH (21:36)
[2018-09-17] MEDS: traZODone 50 MG TAB PO PRN (21:39)
[2018-09-18 05:43] LABS: PLATELET COUNT 201 10^3/uL (150-400)
[2018-09-18] MEDS: INSULIN LISPRO 100 UNIT/ML SC SCH ×3 (07:57→18:13)
[2018-09-18] MEDS: DILTIAZEM CD 120 MG CAP PO SCH (10:09)
[2018-09-18] MEDS: POTASSIUM CITRATE 10 MEQ TAB PO SCH (10:09)
[2018-09-18] MEDS: OMEGA-3 FATTY ACIDS 1,000 MG CAP PO SCH (10:09)
[2018-09-18] MEDS: OSELTAMIVIR 6 MG/ML UDSYR PO SCH ×2 (10:09→21:42)
[2018-09-18] MEDS: THYROID 60 MG TAB PO SCH (10:10)
--- NOTE | 2018-09-18 15:39 | HOSPPROG ---
Hospitalist Progress Note Assessment/Plan: Influenza - Flu A positive on admission - CXR on admission showing moderate bronchitis - Continue Tamiflu 30 mg BID, increased from qd due to improvement in GFR - Supportive care ERIC on CKD - Cr 2.7 on admission, baseline - Likely prerenal, s/p IVF, Cr improved to 2.1 this AM - Continue to monitor BMP, I/O, avoid nephrotoxic agents Hyponatremia - In setting of decreased PO intake - Na improved from 125 to 129 this AM - Continue IVF - Repeat Na in the AM Sepsis - Meeting SIRS criteria on admission with fever, tachycardia - S/p 2L IVF in the ED, continued on mIVF overnight - Management of Flu as above T2DM - Continue home long acting insulin as well as SSI as IP Diarrhea - Likely 2/2 to viral syndrome - C Diff ordered overnight, negative, continue Imodium PRN PPx: SCDs Code: FULL Dispo: Pending clinical course, ricki d/c tomorrow Subjective: Patient reports improvement in breathing, continued loose stools Objective: Vital Signs Temp Pulse Resp BP Pulse Ox 36.8 C 97 20 105/73 90 L 09/18/18 07:53 09/18/18 10:09 09/18/18 07:53 09/18/18 10:09 09/18/18 07:53 Laboratory Results 09/18/18 04:50 09/18/18 04:50 09/17/18 09/18/18 09/19/18 05:59 05:59 05:59 Intake Total 2300 Output Total 400 Balance 2300 -400 - Physical Exam Constitutional: no apparent distress Eyes: PERRL Ears, Nose, Mouth, Throat: moist mucous membranes Cardiovascular: regular rate and rhythym Respiratory: no respiratory distress Gastrointestinal: soft, non-tender abdomen Neurologic: AAOx3 Psychiatric: interacting appropriately ICD10 Worksheet Patient Problems: Problems Problem Status Onset Dehydration Acute Influenza Acute Renal failure, acute Acute Diabetes type 2, uncontrolled Acute MRSA (methicillin resistant Staphylococcus aureus) Acute 02/19/16 Osteomyelitis of toe of left foot Acute
[2018-09-18] MEDS: ACETAMINOPHEN 325 MG TAB PO PRN (16:40)
[2018-09-18] MEDS: LATANOPROST 0.005% 2.5 ML OPHT DROPS EACHEYE SCH (21:42)
[2018-09-18] MEDS: traZODone 50 MG TAB PO PRN (21:43)
[2018-09-18] MEDS: RIVAROXABAN 15 MG TAB PO SCH (21:43)
[2018-09-18] MEDS: INSULIN GLARGINE 100 UNITS/ML UNIT SC SCH (21:43)
[2018-09-19] MEDS: ONDANSETRON 4 MG/2 ML VIAL IVP PRN ×2 (02:17→06:22)
[2018-09-19 07:48] VITALS: BP 104/73
[2018-09-19] MEDS: POTASSIUM CITRATE 10 MEQ TAB PO SCH (07:58)
[2018-09-19] MEDS: OMEGA-3 FATTY ACIDS 1,000 MG CAP PO SCH (07:58)
[2018-09-19] MEDS: DILTIAZEM CD 120 MG CAP PO SCH (07:58)
[2018-09-19] MEDS: OSELTAMIVIR 6 MG/ML UDSYR PO SCH (07:59)
[2018-09-19] MEDS: THYROID 60 MG TAB PO SCH (08:03)
[2018-09-19] MEDS: INSULIN LISPRO 100 UNIT/ML SC SCH ×2 (10:22→11:39)
--- NOTE | 2018-09-19 12:22 | ASMTLACE ---
LACE Length of stay for Answers: 3 days current admission Acuity / Level of Answers: Yes Care: Did the patient have an inpatient admission? Comorbidities - select Answers: Any tumor (including all that apply lymphoma or leukemia) Diabetes (uncontrolled or controlled) Moderate or severe liver or renal disease Peripheral vascular disease Other Notes: HTN; AFib # of Emergency department Answers: 1-2 visits in the last 6 months Score: 16 Date Signed: 09/19/2018 12:21 PM Electronically Signed By:Alisa Wallace RN
--- NOTE | 2018-09-19 12:27 | ASMTDCNOTE ---
Case Management Discharge Discharge Order Complete? Answers: Yes Patient to Obtain Answers: Independently Medications Transportation Arranged Answers: Family/Friends Family Notified Answers: Yes Discharge Comments Notes: Patient discharged home with . No CM needs. Date Signed: 09/19/2018 12:26 PM Electronically Signed By:Alisa Wallace RN
--- NOTE | 2018-09-19 12:44 | PDDCSUM ---
Discharge Summary Discharge Summary: Date of Admission: 09/16/2018 Date of Discharge: 09/19/2018 Consults: N/A Followup: PCP Hospital Course Problem List: Influenza - Flu A positive on admission - CXR on admission showing moderate bronchitis - Continue Tamiflu 30 mg BID for total 5 day course - Supportive care ERIC on CKD - Cr 2.7 on admission, baseline ~1.5 - Likely prerenal, s/p IVF, Cr improved to 1.8 this AM - Continue to monitor BMP Hyponatremia - In setting of decreased PO intake - Na improved from 125 on admission to 130 this AM Sepsis - Meeting SIRS criteria on admission with fever, tachycardia - S/p 2L IVF in the ED, mIVF on floor - Management of Flu as above T2DM - Continue home long acting insulin as well as SSI as IP Diarrhea - Likely 2/2 to viral syndrome - C Diff ordered, negative, continue Imodium PRN Time spent on discharge was >35 minutes with >50% of time spent on patient education and counseling.
[2018-09-22] MEDS ORDERED: CHOLECALCIFEROL VIT D3 2,000 UNITS TAB/CAP PO SCH (09:00)
== END 2018-09-19 12:44 | disposition home or self-care (01) | DRG 872 ==
LOC: F3E 16:17
PROVIDERS: ADMIT Internal Medicine; ATTEND Internal Medicine
DX: A41.89 Other specified sepsis (principal); J10.1 Influenza due to other identified influenza virus with other respiratory manifestations; J20.8 Acute bronchitis due to other specified organisms; E87.1 Hypo-osmolality and hyponatremia; N17.9 Acute kidney failure, unspecified; E87.2 Acidosis; E11.22 Type 2 diabetes mellitus with diabetic chronic kidney disease; E11.40 Type 2 diabetes mellitus with diabetic neuropathy, unspecified; E11.51 Type 2 diabetes mellitus with diabetic peripheral angiopathy without gangrene; I12.9 Hypertensive chronic kidney disease with stage 1 through stage 4 chronic kidney disease, or unspecified chronic kidney disease; N18.9 Chronic kidney disease, unspecified; I48.91 Unspecified atrial fibrillation; G47.33 Obstructive sleep apnea (adult) (pediatric); Z85.72 Personal history of non-Hodgkin lymphomas; Z89.519 Acquired absence of unspecified leg below knee; Z87.442 Personal history of urinary calculi
CPT/HCPCS: 82435-PO; 82565-PO; 82947-PO; 84132-PO; 84295-PO; 84520-PO; 85014-ER; J1815; J2405